=== PATIENT | male | born 1950 | race Caucasian/White ===

== ENCOUNTER → 2016-11-14 | Outpatient (REF) | payer MEDICARE, MEDICAID ==
[~2016-11-14] MED LIST: AKWASOL OU; ALBU83IN INH; APAP325T4 PO; ASPI81TA24 PO; BISA10SU4 PR; CLAR10CA3 PO; CLON0.5T PO; COUM1TAB14 PO; CRES20TA PO; DALI1TAB2 PO; ENEMENE16 PR; FLOM5CAP PO; HUMA100I3 SC; INSULANT SC; IPRASOL4 INH; ISOS30TAB PO; KETO10TAB PO; NEPRLIQ3 PO; NEUR100C PO; NITR0.4S14 SL; PROT20TA11 PO; RENV2TAB PO; TOPR50TA PO; TRAZ25TA PO; TUMS500C PO; VITA200038 PO
[2016-11-14 08:50] LABS: MEAN CORPUSCULAR HEMOGLOBIN 26.4 pg (27.0-33.0); MEAN CORPUSCULAR HGB CONC 30.7 g/dl (32.0-36.5); MEAN CORPUSCULAR VOLUME 86.1 fl (80.0-96.0); RED CELL DISTRIBUTION WIDTH 15.5 % (11.5-14.5); WHITE BLOOD COUNT 5.7 K/mm3 (4.0-10.0)
[2016-11-14 08:58] LABS: INR 2.99
[2016-11-14 09:20] LABS: CALCIUM LEVEL 9.4 MG/DL (8.8-10.2); CREATININE FOR GFR 4.44 MG/DL (0.70-1.30); GLOMERULAR FILTRATION RATE 14.2 (>49); POTASSIUM SERUM 3.9 MEQ/L (3.5-5.1)
== END ==
LOC: SKLAB4 11:13
PROVIDERS: ATTEND Internal Medicine
DX: N18.9 Chronic kidney disease, unspecified (principal); E11.9 Type 2 diabetes mellitus without complications; D64.9 Anemia, unspecified; Z79.01 Long term (current) use of anticoagulants

== ENCOUNTER → 2016-11-21 | Outpatient (REF) | payer MEDICARE, MEDICAID ==
[2016-11-21 09:02] LABS: INR 2.94
== END ==
LOC: SKLAB4 09:37
PROVIDERS: ATTEND Internal Medicine
DX: Z51.81 Encounter for therapeutic drug level monitoring (principal); Z79.01 Long term (current) use of anticoagulants

== ENCOUNTER → 2016-11-28 | Outpatient (REF) | payer MEDICARE, MEDICAID ==
[2016-11-28 08:23] LABS: INR 2.38
== END ==
LOC: SKLAB4 09:53
PROVIDERS: ATTEND Internal Medicine
DX: Z51.81 Encounter for therapeutic drug level monitoring (principal); Z79.01 Long term (current) use of anticoagulants

== ENCOUNTER 2016-11-30 13:50 | Inpatient (IN) | payer MEDICARE, BC, MEDICAID ==
[~2016-11-30] VITALS: Ht 185.4 cm; Wt 82.1 kg
[2016-11-30] MEDS ORDERED: AKWASOL OU (14:11)
[2016-11-30] MEDS ORDERED: CLAR10CA3 PO (14:11)
[2016-11-30] MEDS ORDERED: VITA200038 PO (14:11)
[2016-11-30] MEDS ORDERED: TOPR50TA PO (14:11)
[2016-11-30] MEDS ORDERED: CLON0.5T PO (14:11)
[2016-11-30] MEDS ORDERED: BISA10SU4 PR (14:11)
[2016-11-30] MEDS ORDERED: CRES20TA PO (14:11)
[2016-11-30] MEDS ORDERED: DALI1TAB2 PO (14:11)
[2016-11-30] MEDS ORDERED: FLOM5CAP PO (14:11)
[2016-11-30] MEDS ORDERED: COUM1TAB14 PO (14:11)
[2016-11-30] MEDS ORDERED: TRAZ25TA PO (14:11)
[2016-11-30] MEDS ORDERED: ASPI81TA24 PO (14:11)
[2016-11-30] MEDS ORDERED: NITR0.4S14 SL (14:11)
[2016-11-30] MEDS ORDERED: IPRASOL4 INH (14:11)
[2016-11-30] MEDS ORDERED: NEUR100C PO (14:11)
[2016-11-30] MEDS ORDERED: APAP325T4 PO (14:11)
[2016-11-30] MEDS ORDERED: RENV2TAB PO (14:11)
[2016-11-30] MEDS ORDERED: PROT20TA11 PO (14:11)
[2016-11-30] MEDS ORDERED: HUMA100I3 SC (14:11)
[2016-11-30] MEDS ORDERED: ISOS30TAB PO (14:11)
[2016-11-30] MEDS ORDERED: INSULANT SC (14:11)
[2016-11-30] MEDS ORDERED: TUMS500C PO (14:11)
[2016-11-30] MEDS ORDERED: ALBU83IN INH (14:11)
[2016-11-30] MEDS ORDERED: ASPIRIN 81 MG CHEW TABLET PO ONE (15:00)
[2016-11-30] MEDS ORDERED: MORPHINE 4 MG/ML 1ML SYRINGE IV ONE (15:00)
[2016-11-30 15:14] LABS: BASO % 0.4 % (0.0-1.0); EOS # 0.1 K/mm3 (0.0-0.50); EOS % 1.5 % (0.0-3.0); LARGE UNSTAINED CELL # 0.5 K/mm3 (0.0-0.4); LARGE UNSTAINED CELL % 6.9 % (0.0-4.0); LYMPH # 0.9 K/mm3 (1.5-4.5); LYMPH % 5.8 % (24.0-44.0); MEAN CORPUSCULAR HEMOGLOBIN 26.5 pg (27.0-33.0); MEAN CORPUSCULAR HGB CONC 31.3 g/dl (32.0-36.5); MEAN CORPUSCULAR VOLUME 84.9 fl (80.0-96.0); MONO # 0.6 K/mm3 (0.0-0.8); MONO % 8.3 % (0.0-5.0); NEUTROPHILS # 5.4 K/mm3 (1.8-7.7); NEUTROPHILS % 77.1 % (36.0-66.0); PLATELET COUNT, AUTOMATED 112 k/mm3 (150-450); RED CELL DISTRIBUTION WIDTH 16.9 % (11.5-14.5)
[2016-11-30 15:20] LABS: INR 2.14
--- NOTE | 2016-11-30 15:33 | REP ---
Chest the patient sitting AP and lateral views: There are no comparisons. There is interstitial coarsening compatible with interstitial infiltrates. There are small bilateral pleural effusions. Cardiac size is enlarged. There are sternotomy wires. The young, mediastinum, bony thorax are unremarkable. Impression: The absence of comparison studies, the findings on the current examination are compatible with interstitial infiltrates and bilateral pleural effusions. There are sternotomy wires and cardiomegaly. Signed by Eleazar Mckeon MD 11/30/2016 03:25 P
[2016-11-30 15:56] LABS: ALBUMIN 3.2 GM/DL (3.2-5.2); ALBUMIN/GLOBULIN RATIO 1.03 (1.00-1.93); BILIRUBIN,DIRECT 0.2 MG/DL (0.0-0.2); BILIRUBIN,TOTAL 0.5 MG/DL (0.2-1.0); CALCIUM LEVEL 9.2 MG/DL (8.8-10.2); CREATININE FOR GFR 3.81 MG/DL (0.70-1.30); GLOMERULAR FILTRATION RATE 16.9 (>49); POTASSIUM SERUM 4.3 MEQ/L (3.5-5.1); TOTAL PROTEIN 6.3 GM/DL (6.4-8.2)
[2016-11-30 16:49] VITALS: PULSE 58
[2016-11-30] MEDS ORDERED: NEPRLIQ3 PO (17:21)
[2016-11-30] MEDS ORDERED: ENEMENE16 PR (17:21)
[2016-11-30] MEDS ORDERED: ALBUTEROL SULFATE 2.5 MG/0.5 ML INH NEB SOLN INH PRN (18:00)
[2016-11-30] MEDS ORDERED: BISACODYL 5 MG TAB PO PRN (18:00)
[2016-11-30] MEDS ORDERED: ONDANSETRON 4MG/2ML VIAL (J2405) IV PRN (18:00)
[2016-11-30] MEDS ORDERED: CALCIUM CARBONATE 500 MG CHEW U/D PO PRN (18:00)
[2016-11-30] MEDS ORDERED: FLEET ENEMA PR PRN (18:00)
[2016-11-30] MEDS ORDERED: clonazePAM 0.5 MG TAB PO PRN (18:00)
[2016-11-30] MEDS ORDERED: DEXTROSE 50% 50 ML SYRINGE IV PRN (18:15)
[2016-11-30] MEDS ORDERED: GLUCOSE 4 GM CHEW TABLET PO PRN (18:15)
[2016-11-30] MEDS ORDERED: GLUCAGON FOR INJ 1 MG VIAL (J1610) SC PRN (18:15)
--- NOTE | 2016-11-30 18:30 | REPUSA ---
CLINICAL HISTORY: Increased d-dimers. COMMENTS: Real time sonography with duplex doppler of the extremities bilaterally was performed with attention to the major deep venous structures. Evaluation reveals the common femoral, superficial femoral and popliteal veins bilaterally to be comp letely compressible without intraluminal thrombus. There is normal spontaneous phasic flow and augmen tation in all deep veins. The greater saphenous/common femoral vein junctions are patent bilaterally. IMPRESSION: No evidence of DVT in the lower extremities bilaterally. Thank you for your kind referral of this patient.
--- NOTE | 2016-11-30 19:44 | ECGEPIP ---
Stationary ECG Study [facility] - ED Test Date: 2016-11-30 Pat Name: NURY CARABALLO Department: Room: - Gender: M Bell Tier: anna : [id number] Requested By: STUART Cai Order Number: [id number] Reading MD: Marty Watts Measurements Intervals [place] Rate: 66 P: CT: 0 QRS: 95 QRSD: 119 T: 90 QT: 423 QTc: 446 Interpretive Statements ATRIAL FIBRILLATION BORDERLINE RIGHT AXIS DEVIATION LOW QRS VOLTAGE IN EXTREMITY LEADS POSSIBLE INC. RBBB MODERATE ST DEPRESSION NO PRIORS Electronically Signed On 11-30-2016 19:44:08 EDT by Marty Watts
[2016-11-30] MEDS: IPRATROPIUM 0.5MG/ALBUTEROL 2.5MG INH SOL UD 3ML (DUONEB)(J7620) INH SCH (20:00)
[2016-11-30 20:19] VITALS: BP 121/61
[2016-11-30] MEDS: GABAPENTIN 100 MG CAP PO SCH (20:34)
[2016-11-30] MEDS: VITAMIN D 1,000 INTERNATIONAL UNITS TABLET PO SCH (20:34)
[2016-11-30] MEDS: ACETAMINOPHEN TAB 650MG DOSE (2X325MG) PO PRN (20:34)
[2016-11-30] MEDS: ROSUVASTATIN 10 MG TAB (CRESTOR) PO SCH (20:35)
[2016-11-30] MEDS: LORATADINE 10 MG TAB PO SCH (20:35)
[2016-11-30] MEDS: TAMSULOSIN 0.4 MG CAP PO SCH (20:35)
[2016-11-30] MEDS: WARFARIN SOD 4 MG TAB PO SCH (20:35)
[2016-11-30] MEDS: (RENVELA) SEVELAMER **CARBONate** 800 MG TAB PO SCH (20:38)
[2016-11-30] MEDS: HumaLOG INSULIN (NovoLOG) PER UNIT SC SCH (20:38)
[2016-11-30] MEDS: POLYVINYL ALCOHOL OPHTH SOLN 15 ML(LIQUITEARS) OU SCH (20:38)
[2016-11-30] MEDS: METOPROLOL SUCC (TopROL XL) 50MG **XL** TAB PO SCH (20:40)
[2016-11-30] MEDS ORDERED: HEPARIN SOD (PORCINE) 5000 UNITS/ML VIAL SC SCH (21:00)
--- NOTE | 2016-11-30 22:28 | HPE ---
DATE OF ADMISSION: 11/30/2016 PRIMARY CARE PHYSICIAN: Edmond Gan Jr., MD LITHOGRAPH DESIGNER: Ricky Valentino MD CHIEF COMPLAINT: Right chest pain. HISTORY OF PRESENT ILLNESS: Mr. Cardona is a 66-year-old male with multiple past medical history who presented to the emergency room (ER) due to experiencing right chest pain. Patient expressed that the pain started 2 days ago. When he woke up in the morning he felt pain and it was 4/10, however, it gradually increased to 6-7. Patient is from [facility] where he has lived for a month and before that he was transferred from [facility]. Patient expressed that the pain was constant and increased with moving around and raising his right arm. Patient, however, denies palpitations, racing or skipping heart beat, left chest pain with radiation to the jaw or left shoulder. Patient also expressed that he recently noticed being more out of breath with activities. However, patient denied any history of orthopnea or paroxysmal nocturnal dyspnea (PND). Patient also denies sick contact, fever, chills, or night sweats. Patient also denies loss of appetite. Patient is receiving dialysis on Tuesdays , , and Saturdays, following with Dr. Valentino. However, patient also has a early childhood education coordinator from [place] who has been sending the medical file to Dr. Valentino for continuation of care. At night, patient is on 2 liters of oxygen. Patient has been diagnosed with sleep apnea, however, patient is not on continuous positive airway pressure (CPAP) or bilevel positive airway pressure (BiPAP) due to not being able to tolerate. At the ER, patient was found to have elevated brain natriuretic peptide (BNP). ALLERGIES: ATORVASTATIN, IODINE. PAST MEDICAL HISTORY: 1. End-stage renal disease, dialysis dependent. 2. Paroxysmal atrial fibrillation. 3. Congestive heart failure, possibly combined systolic and diastolic. 4. Chronic obstructive pulmonary disease. 5. Chronic hypoxic respiratory failure. 6. Obstructive sleep apnea. 7. History of coronary artery disease. 8. Diabetes mellitus. 9. Peripheral vascular disease. 10. Wound in the right above the knee amputation. 11. Peripheral neuropathy. PAST SURGICAL HISTORY: 1. Right above knee amputation (AKA) with ischemic postoperative changes February 2016. 2. Revision right AKA 08/05/2016. 3. Carpal tunnel surgery. 4. Left below knee amputation. 5. Coronary artery bypass graft (CABG) four times in 2007. 6. Arteriovenous (AV) fistula in the left upper extremity in 2015. 7. Dialysis graft to right arm in 2011. 8. Cholecystectomy in 2014. 9. Right anterior tibial and peroneal angioplasty. 10 Right 3rd toe amputation. FAMILY HISTORY: Mother at age 57 due to heart failure. Patient's father at age 74 due to diabetes and heart failure. Patient has no brothers or sisters. Patient has three sons who are healthy for their age. SOCIAL HISTORY: Patient lives at [facility]. Patient stopped smoking in 1991, however, patient started smoking at age 12. Patient expressed on average it was a pack or half a pack a day. Patient also stopped drinking alcoholic beverages in 1991, however, before that patient was drinking occasionally and started drinking when he was a teenager. Patient denies illicit drug use. Patient has traveled to [place] and [place]. Patient has no pets. REVIEW OF SYSTEMS: GENERAL: Patient denies fever, chills, night sweats, weight loss, weight gain. HEENT: Patient denies lightheadedness or dizziness, problem with chewing food or sinusitis. NECK: Patient denies lumps, bumps, or decreased range of motion of his neck. HEART: Patient denies chest pain, racing or skipping heart beat, palpitations. LUNGS: At this time patient denies shortness of breath, however, patient expressed that he becomes out of breath with activities. Also, he feels that if he lays down flat for a long time he becomes out of breath for the past several months. ABDOMEN: Patient denies abdominal pain, nausea, vomiting, diarrhea, constipation, melena, hematochezia, or hemoptysis. NEUROLOGIC: Patient denies history of transient ischemic attack (TIA), seizure or seizure-type activities. HOME MEDICATIONS: - acetaminophen 650 mg by mouth every 4 hours as needed for pain - albuterol sulfate 2.5 mg inhaled every 2 hours as needed for shortness of breath - ipratropium bromide/albuterol one solution inhaled three times a day - artificial tears two drops both eyes twice a day - aspirin 81 mg by mouth twice a day - bisacodyl 10 mg as needed for constipation - Tums 1000 mg by mouth four times a day as needed for heartburn - vitamin D3 2000 units by mouth nightly - clonazepam 0.5 mg by mouth daily as needed for anxiety - Neurontin 2000 mg by mouth nightly - Lantus 24 units subcutaneous every morning - Humalog - isosorbide dinitrate 30 mg by mouth daily - Claritin 10 mg by mouth nightly - Toprol XL 50 mg by mouth nightly - Nepro with Carb Steady one liquid by mouth twice a day - nitroglycerin 0.4 mg sublingual (SL) every 5 minutes as needed for angina - Protonix 20 mg by mouth daily - roflumilast 500 mcg by mouth daily - Crestor 20 mg by mouth nightly - Renvela 800 mg by mouth Wednesdays and Mondays - enema as needed for constipation - Flomax 0.4 mg by mouth nightly - trazodone 25 mg by mouth nightly - warfarin 4 mg by mouth nightly OBJECTIVE: VITAL SIGNS: Temperature 97.7, pulse 65, respiratory rate 19, blood pressure 125/59, pulse oximetry 95% on room air. GENERAL APPEARANCE: Patient was lying in bed, in no acute distress. Patient was awake, alert, and oriented to time, place, and person. HEENT: Normocephalic, atraumatic. Pupils are equal and reactive to light. Oral mucosa is moist. NECK: Soft, supple. No lymphadenopathy. No thyromegaly. No jugular venous distention (JVD). HEART: Irregularly irregular. ABDOMEN: Soft, nontender. Positive bowel sounds in all quadrants. LUNGS: Patient has decreased breath sounds at the base of the lung. Patient has mild crackles at the base of the lung, however good air movement. EXTREMITIES: Patient has below the knee amputation on the left and right above the knee amputation. However, patient on the right side has a mild wound that is healing, however no bleeding or drainage was noticed. Patient has normal range of motion in both upper and lower extremities. NEUROLOGIC: Cranial nerves II-XII were intact. LABORATORY DATA: White blood cells 7, red blood cells 4.47, hemoglobin 11.9, hematocrit 38, MCV 84.9, MCH 26.5, MCHC 31.3, RDW 16.9, platelet count 112, neutrophil percentage 77.1, lymphocyte percentage 5.8, monocyte percentage 8.3, eosinophil percentage 1.5, basophil percentage 0.4, leukocyte percentage 6.9. PT 24.7, INR 2.14, aPTT 35.3, Sodium 135, potassium 4.3, chloride 98, carbon dioxide 28, anion gap 9, BUN 37, creatinine 3.81, glomerular filtration rate 16.9, fasting glucose 236, calcium 9.2, total bilirubin 0.5, direct bilirubin 0.2, AST 11, ALT 19, alkaline phosphatase 232, total creatine kinase 80, CK-MB 5.4, CK-MB relative index 6.75, troponin I 0.06, BNP 2870, total protein 6.3, albumin 3.2, lipase 186. IMAGING STUDIES: Chest x-ray shows the absence of comparison studies. The indications of the current examination are compatible with interstitial infiltrates and bilateral pleural effusions. There are sternotomy wires and cardiomegaly. Duplex ultrasound of the lower extremities bilaterally shows no evidence of a deep venous thrombosis (DVT) in the lower extremities. ASSESSMENT AND PLAN: 1. Right chest pain. This is possibly secondary to costochondritis. At this time, patient is receiving acetaminophen. At this time, we will continue patient on acetaminophen. Patient received one dose of morphine 4 mg IV in the emergency room (ER), which he believes that his pain has decreased tremendously. At this time, patient is asymptomatic. 2. Abnormal chest x-ray. Chest x-ray indicated bilateral pleural effusion. Patient also has elevated brain natriuretic peptide (BNP). Emergency room (ER) has spoken with Dr. Ruff and Dr. Ruff will see the patient tomorrow. At this time, we will continue patient's oxygenation at 88-92% due to history of chronic obstructive pulmonary disease (COPD) and chronic hypoxic respiratory failure. We will continue monitoring patient for any abnormal symptoms. 3. End-stage renal disease. Patient is following with Dr. Valentino. Patient is on dialysis on Tuesdays, , and Saturdays. 4. Paroxysmal atrial fibrillation. Based on the CHADS2-VaSc score, patient is required to be on anticoagulation. At this time, patient is on warfarin. Also, patient is on Toprol XL as well as aspirin. Patient's rate is controlled. We will continue to monitor patient for any abnormal symptoms. 5. Chronic obstructive pulmonary disease (COPD) exacerbation. At this time, patient is stable. We will continue patient on oxygen and home breathing treatment. 6. Chronic hypoxic respiratory failure. Patient is stable at this time. Patient is on breathing treatment as well as oxygen. 7. Obstructive sleep apnea. Patient has been diagnosed with sleep apnea and was offered bilevel positive airway pressure (BiPAP)/continuous positive airway pressure (CPAP), however, patient refused using them. However, at this time patient is on 2 liters of oxygen at night when he sleeps via nasal cannula. 8. History of coronary artery disease. Patient is on statin as well as aspirin and warfarin. Patient also has a beta victor hugo. Also, we ordered an EKG which indicated atrial fibrillation, however it did not show any new pathology. The first cardiac marker was negative. We will continue cardiac markers every 6 hours, two more. 9. Diabetes mellitus. We will continue patient on Lantus, however we have started patient on sliding scale. Patient is also on consistent carbohydrate diet. 10. Wound in the stump of the right above knee amputation. At this time, wound is healing. No bleeding or discharge was noticed. 11. Peripheral vascular disease. This is a chronic issue. 12. Deep venous thrombosis (DVT) prophylaxis. Patient is on warfarin. 13. Allergies. Patient is on Claritin 10 mg by mouth nightly. 14. Diabetic neuropathy. Will continue patient on gabapentin 200 mg by mouth nightly. 15. Gastroesophageal reflux disease (GERD). Patient is on Protonix 20 mg daily. My preceptor for this patient encounter was Dr. Alfonso. The preceptor was physically present in the building during the encounter and was fully available. As needed, all aspects of the patient interview, examination, medical decision making process, and medical care plan development were reviewed and approved by the preceptor. The preceptor is aware and concurs with the plan as stated in the body of this note and will attest to such by his/her cosignature. I, Emerald Alfonso, have both independently examined this patient as well as reviewed the documentation. I have discussed in detail with the resident the findings and plan of treatment as documented in the residents documentation. I will continue to follow the patient and offer further guidance to the patients care as necessary during this hospital stay. NAT
[2016-11-30] MEDS ORDERED: NYSTATIN CREAM 15 GM TOP PRN (22:30)
[2016-11-30] MEDS ORDERED: ACETAMINOPHEN TAB 650MG DOSE (2X325MG) PO ONE (22:30)
[2016-11-30] MEDS: traZODone 25MG PER 1/2 TABLET PO SCH (22:45)
[2016-12-01] MEDS: ACETAMINOPHEN TAB 650MG DOSE (2X325MG) PO PRN ×2 (03:09→19:48)
[2016-12-01 03:21] LABS: INR 2.38
[2016-12-01 03:36] LABS: CALCIUM LEVEL 9.4 MG/DL (8.8-10.2); CREATININE FOR GFR 4.54 MG/DL (0.70-1.30); GLOMERULAR FILTRATION RATE 13.8 (>49); MAGNESIUM LEVEL 2.7 MG/DL (1.8-2.4); PHOSPHORUS LEVEL 4.8 MG/DL (2.5-4.9); POTASSIUM SERUM 4.4 MEQ/L (3.5-5.1)
[2016-12-01] MEDS: NITROGLYCERIN 0.4 MG SUBL TABLET SL PRN ×6 (03:48→20:01)
[2016-12-01 04:45] LABS: ADD MANUAL DIFFER YES; MEAN CORPUSCULAR HEMOGLOBIN 26.6 pg (27.0-33.0); MEAN CORPUSCULAR HGB CONC 30.8 g/dl (32.0-36.5); MEAN CORPUSCULAR VOLUME 86.3 fl (80.0-96.0); PLATELET COUNT, AUTOMATED 112 k/mm3 (150-450); RED CELL DISTRIBUTION WIDTH 16.7 % (11.5-14.5); WHITE BLOOD COUNT 6.2 K/mm3 (4.0-10.0)
[2016-12-01 05:26] LABS: ANISOCYTOSIS 1+; BASOPHILS 1 % (0-4); EOSINOPHILS 2 % (0-5); HYPOCHROMASIA 1+
[2016-12-01 06:00] VITALS: BP 109/58
[2016-12-01] MEDS: IPRATROPIUM 0.5MG/ALBUTEROL 2.5MG INH SOL UD 3ML (DUONEB)(J7620) INH SCH ×3 (07:16→19:34)
[2016-12-01] MEDS: POLYVINYL ALCOHOL OPHTH SOLN 15 ML(LIQUITEARS) OU SCH ×2 (08:26→20:03)
[2016-12-01] MEDS: HumaLOG INSULIN (NovoLOG) PER UNIT SC SCH ×4 (08:27→21:00)
[2016-12-01] MEDS: LEVEMIR (INSULIN DETEMIR) 1 UNITS/0.01ML SC SCH (08:28)
[2016-12-01] MEDS: PANTOPRAZOLE 20 MG TAB PO SCH (08:32)
[2016-12-01] MEDS: ISOSORBIDE DIN. (ISORDIL) 30 MG TAB PO SCH (08:32)
[2016-12-01] MEDS: ASPIRIN 81 MG ENTERIC TAB PO SCH (08:32)
[2016-12-01] MEDS: (RENVELA) SEVELAMER **CARBONate** 800 MG TAB PO SCH ×3 (08:32→18:38)
[2016-12-01] MEDS: ROFLUMILAST 500 MCG TAB (DALIRESP) PO SCH (08:33)
--- NOTE | 2016-12-01 11:10 | IPNPDOC ---
Subjective Date Seen The patient was seen on 12/01/16. Subjective Chief Complaint/HPI Patient seen and examined at the bedside this morning. States that he is feeling better and that his chest pain on the right side is resolving. Denies any acute complaints at this time. Objective Physical Examination General Exam: Positive: Alert, Cooperative, No Acute Distress ENT Exam: Positive: Atraumatic, Mucous membr. moist/pink Neck Exam: Negative: JVD Chest Exam: Positive: Diminished Heart Exam: Positive: Rate Normal, Irregular Rhythm, Normal S1, Normal S2 Abdomen Exam: Positive: Soft, Negative: Tenderness Extremity Exam: Positive: Other (right [id number] amputation noted with dressing overlying the stump. Left below the knee amputation noted) Assessment /Plan Plan/VTE VTE Prophylaxis Ordered?: Yes Plan Right sided chest pain likely 2/2 Costochondritis EKG with no acute ST changes Troponin negative 3 Patient's right-sided chest pain reproducible on palpation of the chest wall The patient states this morning that the chest pain has significantly improved Denies any complaints of shortness of breath, palpitations, or any diaphoresis We will continue to monitor Bilateral pleural effusions noted on CXR Patient does have end-stage renal disease requiring hemodialysis Patient is scheduled for dialysis today Nephrology on board for volume optimization End-stage renal disease on HD Nephrology on board as noted above Paroxysmal atrial fibrillation, rate controlled EKG from ER notable for atrial fibrillation Continue metoprolol On Coumadin with therapeutic INR this morning Chronic obstructive pulmonary disease (COPD), stable Continue albuterol, DuoNeb's when necessary Chronic hypoxic respiratory failure Patient on baseline 2 L of oxygen Obstructive sleep apnea Does not take any CPAP/BiPAP therapy at night Continue 2 L of oxygen via nasal cannula at night History of coronary artery disease No evidence of acute coronary syndrome here given EKG and troponin findings Continue aspirin, statin, beta victor hugo Diabetes mellitus. Continue current regimen Peripheral vascular disease Status post left [id number] amputation Status post right [id number]-[id number] amputation Continue aspirin, statin GERD Continue Protonix Diabetic neuropathy Continue gabapentin Deep venous thrombosis (DVT) prophylaxis Patient on Coumadin VS, I&O, 24H, Fishbone Vital Signs/I&O Vital Signs Date Time Temp Pulse Resp B/P (MAP) Pulse Ox O2 Delivery O2 Flow Rate FiO2 12/01/16 08:40 144/66 12/01/16 06:00 97.3 64 18 97 11/30/16 20:47 Nasal Cannula 2.0 I&O- Last 24 Hours up to 6 AM 12/01/16 06:00 Intake Total 540 ml Output Total 0 ml Balance 540 ml Laboratory Data 24H LABS Laboratory Tests 2 11/30/16 15:00: White Blood Count 7.0, Red Blood Count 4.47, Hemoglobin 11.9L, Hematocrit 38.0L , Mean Corpuscular Volume 84.9, Mean Corpuscular Hemoglobin 26.5L, Mean Corpuscular Hemoglobin Concent 31.3L, Red Cell Distribution Width 16.9H, Platelet Count 112L, Neutrophils (%) (Auto) 77.1H, Lymphocytes (%) (Auto) 5.8L, Monocytes (%) (Auto) 8.3H, Eosinophils (%) (Auto) 1.5, Basophils (%) (Auto) 0.4 , Neutrophils # (Auto) 5.4, Lymphocytes # (Auto) 0.9L, Monocytes # (Auto) 0.6, Eosinophils # (Auto) 0.1, Basophils # (Auto) 0.0, Large Unclassified Cells % 6.9H, Large Unclassified Cells # 0.5H, Prothrombin Time 24.7H, Prothromb Time International Ratio 2.14, Activated Partial Thromboplast Time 35.3, D-Dimer, Quantitative 970.5H, Anion Gap 9, Glomerular Filtration Rate 16.9L, Calcium Level 9.2, Aspartate Amino Transf (AST/SGOT) 11L, Alanine Aminotransferase (ALT/ SGPT) 19, Alkaline Phosphatase 232H, Total Bilirubin 0.5, Direct Bilirubin 0.2, Total Creatine Kinase 80, Creatine Kinase MB 5.4H, Creatine Kinase MB Relative Index 6.75H, Troponin I 0.06, B-Type Natriuretic Peptide 2870H, Total Protein 6.3L, Albumin 3.2, Albumin/Globulin Ratio 1.03, Lipase 186 11/30/16 20:37: Bedside Glucose (Misc Panel) 214H 11/30/16 20:58: Total Creatine Kinase 69, Creatine Kinase MB 3.9H, Creatine Kinase MB Relative Index 5.65H, Troponin I 0.07 12/01/16 03:00: Prothrombin Time 26.9H, Prothromb Time International Ratio 2.38, Anion Gap 7L, Glomerular Filtration Rate 13.8L, Calcium Level 9.4, Total Creatine Kinase 51, Creatine Kinase MB 3.3, Creatine Kinase MB Relative Index 6.47H, Troponin I 0.07 , Albumin 3.0L, Neutrophils 75, Lymphocytes (Manual) 14L, Monocytes (Manual) 8, Eosinophils (Manual) 2, Basophils (Manual) 1, Platelet Estimate NORMAL, Hypochromasia 1+, Anisocytosis 1+, Blood Urea Nitrogen 44H, Creatinine 4.54H, Sodium Level 135L, Potassium Level 4.4, Chloride Level 99, Carbon Dioxide Level 29, Phosphorus Level 4.8, Magnesium Level 2.7H 12/01/16 05:55: Bedside Glucose (Misc Panel) 116H CBC/BMP Laboratory Tests 11/30/16 15:00 Red Blood Count 4.47, Mean Corpuscular Volume 84.9, Mean Corpuscular Hemoglobin 26.5 L, Mean Corpuscular Hemoglobin Concent 31.3 L, Red Cell Distribution Width 16.9 H, Neutrophils (%) (Auto) 77.1 H, Lymphocytes (%) (Auto) 5.8 L, Monocytes ( %) (Auto) 8.3 H, Eosinophils (%) (Auto) 1.5, Basophils (%) (Auto) 0.4, Neutrophils # (Auto) 5.4, Lymphocytes # (Auto) 0.9 L, Monocytes # (Auto) 0.6, Eosinophils # (Auto) 0.1, Basophils # (Auto) 0.0 12/01/16 03:00 Red Blood Count 4.23 L, Mean Corpuscular Volume 86.3, Mean Corpuscular Hemoglobin 26.6 L, Mean Corpuscular Hemoglobin Concent 30.8 L, Red Cell Distribution Width 16.7 H, Anion Gap 7 L FRANCO FONSECA MD Dec 01, 2016 11:10
[2016-12-01 19:50] VITALS: BP 137/71
[2016-12-01] MEDS: traZODone 25MG PER 1/2 TABLET PO SCH (20:02)
[2016-12-01] MEDS: LORATADINE 10 MG TAB PO SCH (20:03)
[2016-12-01] MEDS: TAMSULOSIN 0.4 MG CAP PO SCH (20:03)
[2016-12-01] MEDS: GABAPENTIN 100 MG CAP PO SCH (20:03)
[2016-12-01] MEDS: ROSUVASTATIN 10 MG TAB (CRESTOR) PO SCH (20:03)
[2016-12-01] MEDS: VITAMIN D 1,000 INTERNATIONAL UNITS TABLET PO SCH (20:03)
[2016-12-01] MEDS: WARFARIN SOD 4 MG TAB PO SCH (20:03)
[2016-12-01 20:07] VITALS: BP 146/65
[2016-12-01] MEDS: METOPROLOL SUCC (TopROL XL) 50MG **XL** TAB PO SCH (20:08)
[2016-12-01 22:00] VITALS: BP 131/60
[2016-12-02] MEDS: ACETAMINOPHEN TAB 650MG DOSE (2X325MG) PO PRN ×2 (04:21→11:21)
[2016-12-02 06:00] VITALS: BP 112/59
[2016-12-02 06:05] LABS: ADD MANUAL DIFFER YES; MEAN CORPUSCULAR HEMOGLOBIN 26.4 pg (27.0-33.0); MEAN CORPUSCULAR HGB CONC 30.8 g/dl (32.0-36.5); MEAN CORPUSCULAR VOLUME 85.6 fl (80.0-96.0); PLATELET COUNT, AUTOMATED 112 k/mm3 (150-450); RED CELL DISTRIBUTION WIDTH 16.6 % (11.5-14.5); WHITE BLOOD COUNT 5.4 K/mm3 (4.0-10.0)
[2016-12-02 06:11] LABS: INR 2.59
[2016-12-02 06:27] LABS: ALBUMIN 2.9 GM/DL (3.2-5.2); CALCIUM LEVEL 9.6 MG/DL (8.8-10.2); CREATININE FOR GFR 3.44 MG/DL (0.70-1.30); MAGNESIUM LEVEL 2.6 MG/DL (1.8-2.4); PHOSPHORUS LEVEL 4.5 MG/DL (2.5-4.9); POTASSIUM SERUM 4.1 MEQ/L (3.5-5.1)
[2016-12-02 06:46] LABS: ANISOCYTOSIS 1+; BASOPHILS 3 % (0-4); OVALOCYTES 1+
[2016-12-02 06:48] LABS: POIKILOCYTOSIS 1+
[2016-12-02] MEDS: IPRATROPIUM 0.5MG/ALBUTEROL 2.5MG INH SOL UD 3ML (DUONEB)(J7620) INH SCH (07:17)
[2016-12-02] MEDS: HumaLOG INSULIN (NovoLOG) PER UNIT SC SCH (07:30)
[2016-12-02] MEDS: POLYVINYL ALCOHOL OPHTH SOLN 15 ML(LIQUITEARS) OU SCH (08:16)
[2016-12-02 08:17] VITALS: BP 112/59
[2016-12-02] MEDS: ROFLUMILAST 500 MCG TAB (DALIRESP) PO SCH (08:17)
[2016-12-02] MEDS: ASPIRIN 81 MG ENTERIC TAB PO SCH (08:17)
[2016-12-02] MEDS: ISOSORBIDE DIN. (ISORDIL) 30 MG TAB PO SCH (08:17)
[2016-12-02] MEDS: PANTOPRAZOLE 20 MG TAB PO SCH (08:17)
[2016-12-02] MEDS: (RENVELA) SEVELAMER **CARBONate** 800 MG TAB PO SCH (08:18)
[2016-12-02] MEDS: LEVEMIR (INSULIN DETEMIR) 1 UNITS/0.01ML SC SCH (08:26)
[2016-12-02] MEDS ORDERED: PREVNAR 13 VACCINE SYRINGE (CPT CODE:90670) IM ONE (09:00)
[2016-12-02] MEDS ORDERED: KETO10TAB PO (09:49)
--- NOTE | 2016-12-02 19:11 | DSES ---
DATE OF ADMISSION: 12/01/2016 DATE OF DISCHARGE: 12/02/2016 PRIMARY CARE PHYSICIAN: Unknown. REFERRING PHYSICIAN: None. CONSULTING PHYSICIAN: Dr. Ruff. CONDITION ON DISCHARGE: Stable. FINAL DIAGNOSES: 1. Costochondritis. 2. Bilateral pleural effusions secondary to end-stage renal disease. PROCEDURES: None. HISTORY OF PRESENT ILLNESS: Patient is a 66-year-old male with a past medical history of end-stage renal disease, on hemodialysis, paroxysmal atrial fibrillation, congestive heart failure, combination of systolic and diastolic, chronic obstructive pulmonary disease (COPD), chronic hypoxic respiratory failure, obstructive sleep apnea, coronary artery disease, diabetes, peripheral vascular disease, peripheral neuropathy who presented to the emergency room (ER) with complaints of right-sided chest wall pain. Upon presentation to the ER, patient was felt to have some bilateral pleural effusions on chest x-ray and was admitted for possible fluid overload. HOSPITAL COURSE: 1. Right-sided chest pain, likely secondary to costochondritis. EKG without any ST-segment deviation. Troponins times three sets have been negative. Patient's right-sided chest pain was reproducible upon palpation. Patient's chest pain is improved with pain medications and has improved throughout the hospital course. 2. Pleural effusions noted to be on chest x-ray. Patient does have end-stage renal disease requiring hemodialysis. Patient was scheduled for hemodialysis on 12/01/2016 and received hemodialysis accordingly. 3. End-stage renal disease, on hemodialysis as above. 4. Paroxysmal atrial fibrillation. EKG in the ER was notable for atrial fibrillation, rate controlled with metoprolol. Has been on Coumadin for anticoagulation. INR is within therapeutic range. 5. COPD. Continue with albuterol and DuoNeb as needed. 6. Chronic hypoxic respiratory failure. Continue with baseline 2 liters of oxygen at night. 7. Obstructive sleep apnea. Does not use continuous positive airway pressure (CPAP) or bilevel positive airway pressure (BiPAP). 8. Coronary artery disease. No evidence of coronary syndrome on EKG. Continue with aspirin, statin, and beta victor hugo. 9. Diabetes mellitus. Continue with current regimen. 10. Peripheral vascular disease, status post right [id number]. Continue with aspiration, statin. 11. Gastroesophageal reflux disease (GERD). Continue with Protonix. 12. Diabetic neuropathy. Continue with gabapentin. 13. Deep vein thrombosis (DVT) prophylaxis. Continue with anticoagulation with Coumadin. DISCHARGE MEDICATIONS: Patient discharged home with following medication list: - acetaminophen 650 mg by mouth every 4 hours as needed pain - albuterol sulfate 2.5 mg inhaled every 2 hours as needed for shortness of breath - artificial tears two drops in each eye twice a day - aspirin 81 mg by mouth daily - bisacodyl 10 mg by mouth daily as needed for bowel care - calcium carbonate 1000 mg by mouth four times a day - colecalciferol 2000 units by mouth at bedtime - clonazepam 0.5 mg by mouth daily as needed for anxiety -gabapentin 200 mg by mouth at bedtime - insulin glargine 24 units subcutaneous every morning - insulin Lispro one dose to be taken with meals on sliding scale - isosorbide dinitrate 30 mg by mouth daily - loratadine 10 mg by mouth at bedtime - metoprolol succinate 50 mg at bedtime - Nepro with Carb Steady one liquid by mouth twice a day - nitroglycerine 0.4 mg sublingual every 5 minutes as needed for angina - Protonix 20 mg by mouth daily - roflumilast 500 mcg by mouth daily - rosuvastatin 20 mg by mouth at bedtime - sevelamer 800 mg by mouth every meal - sodium phosphate/bisphosphate enema per rectum daily as needed for constipation - tamsulosin 0.4 mg by mouth at bedtime - trazodone 25 mg by mouth at bedtime - warfarin 4 mg by mouth at bedtime New medications prescribed: - ketorolac 10 mg by mouth every 6 hours as needed for moderate pain for right shoulder DISCHARGE INSTRUCTIONS: Patient has been advised to followup with his primary care provider and nephrology within the next 7 days. He has been advised to remain compliant with treatment plan and medications and return to the emergency room if he experiences any problems. TIME SPENT ON DISCHARGE: Greater than 35 minutes.
--- NOTE | 2016-12-03 08:47 | IPN ---
DATE: 12/02/2016 SUBJECTIVE: The patient was seen and examined at the bedside today morning. Last 24 hour events were noted. The patient got hemodialysis done yesterday. He tolerated the hemodialysis procedure well. The patient reports that his right sided chest pain is getting better now. REVIEW OF SYSTEMS: The patient denies any fever, chills, rigors, headaches, nausea, vomiting or shortness of breath. He reports right sided chest pain improving. Right now he denies any pain in abdomen, constipation or diarrhea. The rest of the review of systems is negative. OBJECTIVE: VITAL SIGNS: Temperature 98 degrees Fahrenheit. Blood pressure 112/59. Pulse 99. Respiratory rate 18. Saturating 98% on nasal cannula on 2 liters. INTAKE AND OUTPUT: Ultra filtration with hemodialysis was 2 liters yesterday. Weight on the bed scale is 82.1 kg. PHYSICAL EXAMINATION: GENERAL: The patient is awake, alert and oriented times three laying in bed in no apparent distress. HEAD AND NECK EXAM: Pupils equally round and reactive to light. Mucous membranes are moist. Neck is supple. There is no jugular venous distention. CARDIOVASCULAR: S1, S2, regular rate. No murmur, rub or gallop. RESPIRATORY: Chest is clear to auscultation bilaterally. Bilateral equal air entry. No rales or rhonchi. ABDOMEN: Soft. Positive bowel sounds. Nontender. No ascites. No organomegaly. EXTREMITIES: The patient has bilateral lower extremity amputations. CENTRAL NERVOUS SYSTEM: No focal neurological deficit. Power is 5/5 in bilateral upper extremities. PSYCHIATRIC: Normal mood and affect. LAB REVIEW: CBC showed a WBC of 5.4, hemoglobin 11.4 and platelets of 112. BMP showed sodium 133, potassium 4.1, chloride 97, bicarbonate 29, BUN 30, creatinine 3.4, magnesium 2.6, albumin 2.9. CURRENT INPATIENT MEDICATIONS: The patient's medications were all reviewed by me and there is no change in the medications today as compared with yesterday. ASSESSMENT: 66-year-old male with past medical history of end stage renal disease on hemodialysis admitted at this time because of right sided chest pain. PLAN: 1. End stage renal disease with hemodialysis. The patient's regular days of dialysis are Monday, , Monday. He was dialyzed according to his regular schedule yesterday. No urgent need of hemodialysis today. 2. Right sided chest pain. The patient's pain is improving. He was also dialyzed yesterday and got ultra filtration. His shortness of breath is improved at this time. 3. Hypertension. Blood pressure is improved at this time. Continue current dose of isosorbide 30 mg by mouth daily, metoprolol 50 mg by mouth at bedtime. 4. Discharge planning. It is okay to discharge the patient from nephrology standpoint back to the [facility]. Next hemodialysis will be done as outpatient tomorrow morning.
== END 2016-12-02 11:41 | DRG 205 ==
LOC: M ED 13:50 → M ED INP 18:20 → M MSPAV 20:25 → OBSVTOIN 12-01 08:07
PROVIDERS: ADMIT Internal Medicine; ATTEND Internal Medicine
PROC: 5A1D60Z (ICD-10-PCS; principal; 2016-12-01)
DX: M94.0 Chondrocostal junction syndrome [Tietze] (principal); N18.6 End stage renal disease; I50.42 Chronic combined systolic (congestive) and diastolic (congestive) heart failure; J96.11 Chronic respiratory failure with hypoxia; J44.1 Chronic obstructive pulmonary disease with (acute) exacerbation; I13.2 Hypertensive heart and chronic kidney disease with heart failure and with stage 5 chronic kidney disease, or end stage renal disease; J90 Pleural effusion, not elsewhere classified; I48.0 Paroxysmal atrial fibrillation; G47.33 Obstructive sleep apnea (adult) (pediatric); Z66 Do not resuscitate; I25.10 Atherosclerotic heart disease of native coronary artery without angina pectoris; E11.51 Type 2 diabetes mellitus with diabetic peripheral angiopathy without gangrene; J30.9 Allergic rhinitis, unspecified; K21.9 Gastro-esophageal reflux disease without esophagitis; E11.42 Type 2 diabetes mellitus with diabetic polyneuropathy; Z89.611 Acquired absence of right leg above knee; Z89.512 Acquired absence of left leg below knee; Z95.0 Presence of cardiac pacemaker; Z99.2 Dependence on renal dialysis; Z98.62 Peripheral vascular angioplasty status; Z87.891 Personal history of nicotine dependence; Z79.82 Long term (current) use of aspirin; Z79.4 Long term (current) use of insulin; Z79.01 Long term (current) use of anticoagulants; Z79.899 Other long term (current) drug therapy

== ENCOUNTER 2016-12-04 07:53 | Emergency (ER) | payer MEDICARE, BC, MEDICAID ==
[~2016-12-04] VITALS: Ht 185.4 cm; Wt 85.9 kg
[2016-12-04] MEDS ORDERED: ONDANSETRON 4MG/2ML VIAL (J2405) IV ONE (08:15)
[2016-12-04] MEDS ORDERED: MORPHINE 4 MG/ML 1ML SYRINGE IV PRN (08:15)
[2016-12-04 08:38] LABS: ADD MANUAL DIFFER YES; MEAN CORPUSCULAR HEMOGLOBIN 26.5 pg (27.0-33.0); MEAN CORPUSCULAR HGB CONC 31.6 g/dl (32.0-36.5); PLATELET COUNT, AUTOMATED 115 k/mm3 (150-450); RED CELL DISTRIBUTION WIDTH 16.3 % (11.5-14.5); WHITE BLOOD COUNT 6.1 K/mm3 (4.0-10.0)
[2016-12-04 08:56] LABS: BASOPHILS 1 % (0-4); EOSINOPHILS 1 % (0-5)
[2016-12-04 08:57] LABS: HYPOCHROMASIA 1+
[2016-12-04 08:58] LABS: OVALOCYTES 1+
[2016-12-04 08:59] LABS: ANISOCYTOSIS 1+; POIKILOCYTOSIS 1+
[2016-12-04 09:02] LABS: ALBUMIN 3.1 GM/DL (3.2-5.2); BILIRUBIN,DIRECT 0.3 MG/DL (0.0-0.2); BILIRUBIN,TOTAL 0.7 MG/DL (0.2-1.0); CALCIUM LEVEL 9.8 MG/DL (8.8-10.2); CREATININE FOR GFR 3.15 MG/DL (0.70-1.30); TOTAL PROTEIN 6.2 GM/DL (6.4-8.2)
[2016-12-04 09:50] LABS: INR 2.54
[2016-12-04] MEDS ORDERED: diphenhydrAMINE INJ 50MG/ML VIAL (J1200) IV STA (10:05)
[2016-12-04] MEDS ORDERED: methylPREDNISolone INJ 125 MG/2 ML VIAL (J2930) IV ONE (10:15)
[2016-12-04] MEDS ORDERED: ISOVUE-370 76% 100ML VIAL (Q9967) As Ordered ONE (10:43)
--- NOTE | 2016-12-04 10:51 | REP ---
PORTABLE CHEST: AP portable view of the chest is performed and compared to prior study of 11/30/2016. There is again cardiomegaly with vascular congestion. There is bilateral interstitial edema and small effusions unchanged. There is a calcification and ectasia of the thoracic aorta. The mediastinal silhouette is unchanged. Multiple sternal wires are present. IMPRESSION: No change since prior study as discussed above. Signed by Eleazar Preciado MD 12/04/2016 07:25 P
--- NOTE | 2016-12-04 11:54 | REP ---
CT ANGIOGRAM OF THE CHEST: TECHNIQUE: Axial contrast enhanced images from the thoracic inlet to the upper abdomen using 100 mL Isovue 370 intravenous contrast material with multiplanar reformations. There is no CT evidence of a pulmonary embolism. Thoracic aorta demonstrates moderate atherosclerotic calcification. There is dilatation of the ascending aorta to a mild extent, 4.4 cm in AP dimension. There is no definite aortic dissection. There is mild cardiomegaly. No pericardial effusion is seen. Multiple subcentimeter lymph nodes are seen in the mediastinum. There is an enlarged right infrahilar lymph node measuring 2 cm in short axis dimension. There are small bilateral pleural effusions. Patchy bibasilar infiltrates are present. There are degenerative changes of the spine. IMPRESSION: No CT evidence of pulmonary embolism. Mild cardiomegaly. Small bilateral pleural effusions. Patchy bibasilar infiltrates. Mild dilatation of the ascending thoracic aorta. Mild right infrahilar adenopathy with an enlarged lymph node 2 cm in short axis dimension. Signed by Eleazar Preciado MD 12/04/2016 07:28 P
[2016-12-04 13:04] VITALS: BP 123/84
--- NOTE | 2016-12-05 08:04 | ECGEPIP ---
Stationary ECG Study [facility] - ED Test Date: 2016-12-04 Pat Name: NURY CARABALLO Department: Room: - Gender: M [employer]: anna : 1950 Requested By: Marie Saunders Order Number: [id number] Reading MD: Marty Watts Measurements Intervals Cade Rate: 68 P: IN: 0 QRS: 93 QRSD: 125 T: 96 QT: 435 QTc: 463 Interpretive Statements ATRIAL FIBRILLATION BORDERLINE RIGHT AXIS DEVIATION MODERATE INTRAVENTRICULAR CONDUCTION DELAY MODERATE ST DEPRESSION SIMILAR TO 11/30/16 Electronically Signed On 12-05-2016 8:03:58 EDT by Marty Watts
== END 2016-12-04 13:23 | disposition home or self-care (01) ==
LOC: EDBD 07:53 → M ED 09:41
DX: R07.81 Pleurodynia (principal); I48.91 Unspecified atrial fibrillation; I50.9 Heart failure, unspecified; I12.0 Hypertensive chronic kidney disease with stage 5 chronic kidney disease or end stage renal disease; E78.4 Other hyperlipidemia; N18.6 End stage renal disease; Z95.1 Presence of aortocoronary bypass graft; Z99.2 Dependence on renal dialysis
CPT/HCPCS: 71010; 71275; 80048; 80076; 82550; 82553; 83690; 83880; 84484; 85025; 85610; 93005; 93041; 94760; 96374; 96375; 99285; J1200; J2405; J2930; Q9967

== ENCOUNTER → 2016-12-05 | Outpatient (REF) | payer MEDICARE, MEDICAID ==
[2016-12-05 09:15] LABS: INR 3.95
== END ==
LOC: SKLAB4 09:44
PROVIDERS: ATTEND Internal Medicine
DX: Z51.81 Encounter for therapeutic drug level monitoring (principal); Z79.01 Long term (current) use of anticoagulants

== ENCOUNTER → 2016-12-07 | Outpatient (REF) | payer MEDICARE, MEDICAID | LOC: SKLAB4 04:07 | PROVIDERS: ATTEND Internal Medicine | DX: R19.7 Diarrhea, unspecified (principal) ==

== ENCOUNTER → 2016-12-08 | Outpatient (REF) | payer MEDICARE, MEDICAID ==
[2016-12-08 08:41] LABS: INR 2.54
== END ==
LOC: SKLAB4 12:54
PROVIDERS: ATTEND Internal Medicine
DX: Z51.81 Encounter for therapeutic drug level monitoring (principal); Z79.01 Long term (current) use of anticoagulants

== ENCOUNTER → 2016-12-12 | Outpatient (REF) | payer MEDICARE, MEDICAID ==
[2016-12-12 07:54] LABS: INR 1.6
== END ==
LOC: SKLAB4 12:00
PROVIDERS: ATTEND Internal Medicine
DX: Z51.81 Encounter for therapeutic drug level monitoring (principal); Z79.01 Long term (current) use of anticoagulants

== ENCOUNTER → 2016-12-19 | Outpatient (REF) | payer MEDICARE, MEDICAID ==
--- NOTE | 2016-12-01 19:03 | CR ---
DATE OF CONSULTATION: 12/01/2016 REQUESTING PHYSICIAN: Dr. Jet Rubio CONSULTING PHYSICIAN: Dr. Ruff REASON FOR CONSULTATION: Management of end-stage renal disease and hemodialysis. CHIEF COMPLAINT: Patient presented to the emergency room last night because of right sided chest pain. HISTORY OF PRESENT ILLNESS: Mr. Johnson is a 66-year-old male with a past medical history of end stage renal disease on hemodialysis. Patient is outpatient. He has multiple comorbidities which are mentioned below. Patient presented to the emergency room last night because of right sided chest pain which was almost 4/10 in intensity radiating down to his right arm. It was constant. It was getting worse with movement. Patient denies any nausea or vomiting, palpitations or sweating. He also complained of some shortness of breath. His regular dialysis days are Monday, , Monday. Today is his day of dialysis. Patient was admitted overnight by the hospitalist service for management of right sided chest pain and possible fluid overload. Nephrology service was called to further help in the management of end-stage renal disease, dialysis and ultrafiltration today. When I saw the patient today morning he was comfortable, laying in bed. No apparent respiratory distress and he was not having any chest pain when I saw him this morning. PAST MEDICAL HISTORY: End stage renal disease, on hemodialysis every Monday, , Monday. Paroxysmal atrial fibrillation. History of congestive heart failure. Chronic obstructive pulmonary disease (COPD). Obstructive sleep apnea. Hypertension. Diabetes mellitus type 2. Peripheral vascular disease. PAST SURGICAL HISTORY: Status-post right above knee amputation. Status-post left below knee amputation. History of carpal tunnel surgery. History of coronary artery bypass grafting in 2007. Status-post left upper arm arteriovenous fistula in 2015. History of right upper arm arteriovenous graft placed in 2011 which has failed now. Status-post cholecystectomy in 2014. History of peripheral angiogram in the past. ALLERGIES: Patient is allergic to IODINE and ATORVASTATIN. CURRENT INPATIENT MEDICATIONS: Patients medications were all reviewed by me and that include: - Tylenol as needed - albuterol as needed - aspirin 81 mg by mouth twice a day -Dulcolax as needed - Tums 1 gram by mouth four times a day as needed for heartburn. - Klonopin 0.5 mg by mouth daily as needed anxiety - gabapentin 200 mg at night - insulin Levemir 24 units every morning - insulin lispro sliding scale - isosorbide dinitrate 30 mg by mouth daily - Claritin 10 mg by mouth nightly - metoprolol XL 50 mg by mouth nightly - Zofran intravenous as needed - Protonix 20 mg daily - roflumilast (Daliresp) 500 mcg by mouth daily - Crestor 20 mg at night - Renvela 800 mg by mouth with meals - Flomax 0.4 mg by mouth at night - trazodone 25 mg at night - vitamin D 2,000 units by mouth daily - warfarin 4 mg by mouth at night FAMILY HISTORY: No significant family history of end-stage renal disease requiring hemodialysis. There is a positive history of diabetes and heart failure in father. SOCIAL HISTORY: Patient is a resident of [facility]. Patient is a former smoker. He quit in 1991 and he also quit drinking in 1991 as well. He denies any illicit drug abuse. REVIEW OF SYSTEMS: CONSTITUTIONAL: Patient denies any fever, chills, rigors. EYES: Denies any blurry vision or double vision. ENT: He denies any dysphagia or odynophagia, ear discharge. CARDIOVASCULAR: Patient reports right sided chest pain. He reports history of atrial fibrillation but denies any palpitations. RESPIRATORY: He denies any shortness of breath at this time. He denies any cough and wheezing. GASTROINTESTINAL (GI): Denies any pain, pain in abdomen, constipation, or diarrhea. GENITOURINARY (): He denies any hematuria or dysuria but reports history of endstage renal disease. MUSCULOSKELETAL: He denies any muscle aches and pains but reports bilateral lower extremity amputations. CENTRAL NERVOUS SYSTEM: He denies history of seizures or strokes in the past. PSYCHE: He reports history of depression. SKIN: He denies any rashes or ulcers. HEMATOLOGIC/ONCOLOGIC: He reports history of anemia secondary to end-stage renal disease but denies any history of cancers. ENDOCRINE: Patient reports diabetes. All of the review of system is negative. PHYSICAL EXAMINATION: GENERAL: Patient is awake, alert and oriented times three, laying in bed. No apparent distress. CURRENT VITAL SIGNS: Temperature 97.3 degrees Fahrenheit. Blood pressure 109/58. Pulse 64. Respiratory rate 18. Saturating 97% on nasal cannula. HEAD AND NECK EXAM: Extraocular muscles intact. Pupils equally round and reactive to light. Mucous membranes are moist. Neck is supple. There is no jugular venous distention (JVD). CARDIOVASCULAR: S1, S2. Irregularly irregular heart rate. No murmur, rub or gallop. RESPIRATORY: Chest is clear to auscultation bilaterally. Bilateral equal air entry. No rales or rhonchi. ABDOMEN: Soft. Positive bowel sounds. Nontender. Positive small periumbilical hernia and old surgical scars from cholecystectomy. GENITOURINARY: No hernias appreciated. Patient does not have a Bautista at this time. MUSCULOSKELETAL: Patient has a right above knee amputation and left below knee amputation. Otherwise normal range of movement in bilateral upper extremities. No clubbing or cyanosis. CENTRAL NERVOUS SYSTEM: No focal neurological deficit. Power is 5/5 in bilateral upper extremities. PSYCHE: Normal mood and affect. SKIN: No rashes or ulcers. AV ACCESS: Patient has a left upper arm AV fistula with positive thrill and bruit. LAB REVIEW: CBC showed a WBC of 6.2, hemoglobin 11.2 and platelets of 112. INR 2.38. BMP showed a sodium of 135, potassium 4.4, chloride 99, bicarbonate 29, BUN 44, creatinine 4.5, phosphorus 4.9, magnesium 2.7, albumin 3. IMAGING: Chest x-ray done last night showed interstitial infiltrates and bibasilar pleural effusions. Doppler or the bilateral lower extremities was negative for deep venous thrombosis (DVT). ASSESSMENT: 66-year-old male with past medical history of diabetes, history of bilateral lower extremity amputations, end stage renal disease on hemodialysis, coronary artery disease status-post CABG in the past, and paroxysmal atrial fibrillation, admitted this time because of right sided chest pain and some shortness of breath. PLAN: 1. Right sided chest pain. Patient is asymptomatic at this time. He denies any chest pain at this time. He reports that morphine helped him with the pain. There was no CT angiogram of the chest done, however Doppler of the lower extremity ws negative. The patient will be dialyzed today and we should try to remove about 2 liters of fluid to help with possible fluid overload. 2. End stage renal disease on hemodialysis. Patients regular dialysis days are Monday, , Monday. He will be dialyzed today according to his regular schedule and 3K bath. 3. Paroxysmal atrial fibrillation. Heart rate is controlled at this time. Continue Coumadin anticoagulation at this time. Continue metoprolol XL 50 mg by mouth at night. 4. Hypertension. Blood pressure is well controlled at this time. Continue current dose of metoprolol and isosorbide. 5. Chronic kidney disease mineral bone disease. Continue current dose of Renvela 800 mg by mouth three times a day with meals. Phosphorous level is acceptable at 4.8 today. 6. Hyponatremia. Patient has mild hyponatremia, likely secondary to fluid overload and end-stage renal disease. Hemodialysis and our interpretation will help improve hyponatremia. 7. Anemia and end-stage renal disease. Hemoglobin is 11.2 which is acceptable. No need or Aranesp administration at this time. 8. Diabetes mellitus type 2. Continue insulin sliding scale and insulin Levemir as per home dosage. Rest of the management is as per primary team. Thank you for involving us in the care of this patient. We shall be happy to follow the patient along with you tomorrow morning. Patients dialysis was arranged. Patient will be dialyzed today in the afternoon. MTDD
[2016-12-19 08:44] LABS: INR 1.58
== END ==
LOC: SKLAB4 11:41
PROVIDERS: ATTEND Internal Medicine
DX: N18.6 End stage renal disease (principal); J44.9 Chronic obstructive pulmonary disease, unspecified; I48.0 Paroxysmal atrial fibrillation; I12.0 Hypertensive chronic kidney disease with stage 5 chronic kidney disease or end stage renal disease; E11.9 Type 2 diabetes mellitus without complications; E87.1 Hypo-osmolality and hyponatremia; I73.9 Peripheral vascular disease, unspecified; Z89.611 Acquired absence of right leg above knee; Z95.5 Presence of coronary angioplasty implant and graft; Z79.899 Other long term (current) drug therapy; Z79.82 Long term (current) use of aspirin; Z88.8 Allergy status to other drugs, medicaments and biological substances; Z79.01 Long term (current) use of anticoagulants

== ENCOUNTER → 2017-01-05 | Outpatient (REF) | payer MEDICARE, MEDICAID ==
[2017-01-05 20:42] LABS: ADD MANUAL DIFFER YES; MEAN CORPUSCULAR HGB CONC 31.8 g/dl (32.0-36.5); MEAN CORPUSCULAR VOLUME 87.9 fl (80.0-96.0); PLATELET COUNT, AUTOMATED 114 k/mm3 (150-450); RED CELL DISTRIBUTION WIDTH 16.6 % (11.5-14.5); WHITE BLOOD COUNT 6.5 K/mm3 (4.0-10.0)
[2017-01-05 21:15] LABS: BASOPHILS 3 % (0-4); EOSINOPHILS 2 % (0-5)
[2017-01-05 21:16] LABS: ANISOCYTOSIS 1+; OVALOCYTES 1+
[2017-01-05 21:17] LABS: POIKILOCYTOSIS 1+
--- NOTE | 2017-01-06 15:05 | REP ---
CHEST, TWO VIEWS: HISTORY: Fever. COMPARISON: 12/04/2016 An increase in interstitial markings is present in the lungs. Small bilateral pleural effusions are present. The cardiac silhouette is enlarged. The pulmonary vasculature is prominent. The bony structure is intact. IMPRESSION: Congestive heart failure. Signed by Vivek Hyde MD 01/06/2017 03:11 P
== END ==
LOC: SKLAB4 18:41
PROVIDERS: ATTEND Internal Medicine
DX: R50.9 Fever, unspecified (principal)

== ENCOUNTER → 2017-01-06 | Outpatient (REF) | LOC: SKLAB4 18:41 | PROVIDERS: ATTEND Internal Medicine | DX: R50.9 Fever, unspecified (principal) ==

== ENCOUNTER → 2017-01-10 | Outpatient (REF) | payer MEDICARE, BC, MEDICAID ==
--- NOTE | 2017-01-10 20:55 | ECGEPIP ---
Stationary ECG Study [facility] Test Date: 2017-01-10 Pat Name: NURY CARABALLO Department: Room: - Gender: M Convalescent Sitter: [facility] : 1950 Requested By: Edmond Gan Order Number: [id number] Reading MD: Yoandy Valente Measurements Intervals [place] Rate: 87 P: MS: 0 QRS: 132 QRSD: 127 T: 210 QT: 436 QTc: 527 Interpretive Statements ATRIAL FIBRILLATION Low limb lead voltages. Nonspecific ST-T abnormality. No significant change compared with 12/04/2016. Electronically Signed On 01-10-2017 20:55:49 EDT by Yoandy Valente
== END ==
LOC: M EKG 17:42
PROVIDERS: ATTEND Internal Medicine
DX: I50.9 Heart failure, unspecified (principal); R51 Headache

== ENCOUNTER → 2017-01-10 | Outpatient (REF) | payer MEDICARE, MEDICAID ==
--- NOTE | 2017-01-10 20:56 | REP ---
Clinical: History of CHF and cough. Comparison: 01/06/2017. Findings: Cardiomegaly and mild/early moderate pulmonary vascular congestion with interstitial edema and suspected pleural fluid is again identified but appears improved when compared to prior examination. Scattered atelectasis cannot be excluded. No pneumothorax. Impression: Improved pulmonary vascular congestion/interstitial edema. Cannot exclude small residual pleural fluid or scattered atelectasis. No new acute process identified. Signed by Dae Patel MD 01/10/2017 08:55 P
== END ==
LOC: SKLAB4 19:59
PROVIDERS: ATTEND Internal Medicine
DX: I50.9 Heart failure, unspecified (principal); R51 Headache

== ENCOUNTER → 2017-02-03 | Outpatient (CLI) | payer MEDICARE, BC, MEDICAID ==
[~2017-02-03] MED LIST changes: +ISOVUE-300 61% 50ML VIAL (Q9967) As Ordered ONE; +MIDAZOLAM INJ 2 MG/2 ML VIAL (J2250) As Ordered ONE; +fentaNYL 100 MCG/2 ML INJECTION (J3010) As Ordered ONE
--- NOTE | 2017-02-22 13:48 | REPKIM ---
DATE OF PROCEDURE: 02/03/2017 PREPROCEDURE DIAGNOSES: Endstage renal disease, dysfunctional left brachial artery to axillary vein arteriovenous graft. POSTPROCEDURE DIAGNOSES: Endstage renal disease, dysfunctional left brachial artery to axillary vein arteriovenous graft. PROCEDURE: Left brachial artery to axillary vein arteriovenous graft fistulogram, retrograde left brachial artery angiogram, left subclavian artery angioplasty with 7 x 150 mm balloon, left axillary vein angioplasty with 7 x 150 mm balloon, left brachial artery to axillary arteriovenous graft angioplasty with 7 x 150 mm balloon. SURGEON: Dr. Jennifer Blair. PNEUMATIC HOIST OPERATOR: Carina Hoang ANESTHESIA: Local with sedation with 1 mg of Versed, 50 mcg of fentanyl and 1 mL of 2% lidocaine. Sedation time was from 8:27 a.m. to 8:38 a.m. with the sedation administered by myself and the cardiopulmonary monitoring performed by the nurse in the room and the procedure was performed under my direct supervision and direction and I was present for and directed the entire case. CONTRAST: 6 mL. ESTIMATED BLOOD LOSS: Minimal. IV FLUIDS: 100 mL COMPLICATION: None. DRAINS: None. SPECIMENS: None. IMPLANTS: None. INDICATION: The patient is a 66-year-old male with a previous left brachial artery axillary vein arteriovenous graft that has required multiple angioplasties in the past due to stenosis within the venous outflow tract and at the graft to venous anastomosis. The patient now has pulsatility with excessive bleeding on de-canalization and will undergo a fistulogram with possible angioplasty and/or stent. Risks, benefits and alternative treatment options were discussed with the patient. Alternative treatment options included but were not limited to no intervention. DESCRIPTION OF PROCEDURE: The patient was taken to the angiography suite and placed supine on the angiography room table and the left upper extremity was prepped and draped in the standard surgical fashion. The graft was cannulated with the micropuncture needle after anesthetizing the overlying skin with 1% lidocaine. A fistulogram was performed showing an approximate 70% stenosis at the graft to axillary vein anastomosis. The was extending into the axillary vein and into the subclavian vein. The subclavian vein, axillary vein and graft were angioplastied with a 7 x 150 mm balloon with a followup fistulogram showing resolution of the stenosis. A retrograde left brachial artery angiogram was performed during inflation of the 7 x 150 mm balloon showing the remainder of the graft to be patent to the brachial artery with no stenosis at the graft to brachial artery anastomosis. Catheters and wires were removed. The arteriotomy was closed using a #2-0 Prolene suture. All instrument, sponge and needle counts were correct at the end of the case. There were no complications. Dr. Blair was present for and directed the entire case. The patient was transferred to [facility] and subsequently discharged in stable condition, once the #2-0 Prolene suture had been removed and good hemostasis noted. RADIOLOGIC SUPERVISION INTERPRETATION: The fistulogram showed stenosis in the graft to axillary vein anastomosis, which extended into the axillary vein and subclavian vein. The subclavian vein and axillary vein and graft were angioplastied with a 7 x 150 mm balloon with a completion fistulogram showing resolution of the stenosis. Retrograde brachial artery angiogram showed the remainder of the graft to be patent with no intervention required.
== END | disposition home or self-care (01) ==
LOC: M IRPRO 07:24
PROVIDERS: ATTEND Surgery Vascular Surgery
DX: T82.858A Stenosis of other vascular prosthetic devices, implants and grafts, initial encounter (principal); N18.6 End stage renal disease
CPT/HCPCS: 36902; 36907; 99152; C1725; C1894; J2250; J3010; Q9967

== ENCOUNTER → 2017-04-12 | Outpatient (CLI) | payer MEDICARE, MEDICAID ==
[~2017-04-12] MED LIST changes: +ALTEPLASE 2 MG/2 ML VIAL (J2997 PER 1MG) As Ordered ONE; +CINA30TA PO; +CLOP75TA2 PO; +ELIQ2.5T PO; +GUAI1SYP8 PO; +HEPARIN 1,000 UNITS/ML 10ML VIAL (FOR RADIOLOGY& DIALYSIS ONLY) As Ordered ONE; +HEPARIN SOD (PORCINE) 5000 UNITS/ML VIAL As Ordered ONE; +LIDOCAINE 2% MDV 20 ML VIAL As Ordered ONE; +LORA10TA2 PO; +METO1TAB87 PO; +MULT1TAB10 PO; +PANT20TA PO; +RANI15TA PO; +SENN8.6T7 PO; +SENS60TA PO; +SIME180C PO; +SIME80TA PO; +TRAZ-136 PO; +VITMTA PO; +ZOCO40TA PO
--- NOTE | 2017-05-03 09:56 | REPIR ---
DATE OF PROCEDURE: 04/12/2017 PREPROCEDURE DIAGNOSIS: Endstage renal disease. Thrombosed left brachial artery to axillary vein arteriovenous graft. POSTPROCEDURE DIAGNOSIS: Endstage renal disease. Thrombosed left brachial artery to axillary vein arteriovenous graft. PROCEDURE: Insulation of thrombolytic with 6 mg of tissue plasminogen activator (TPA) and 5000 units of heparin into thrombosed left brachial artery axillary vein arteriovenous graft. Left brachial artery to axillary venous graft fistulogram. Thrombectomy percutaneously of the left brachial artery axillary vein arteriovenous graft. Selective left brachial artery catheter placement with angiogram and runoff. Left brachial artery and arteriovenous graft angioplasty with an 8 x 200 balloon. Left arteriovenous graft and axillary vein angioplasty with a 10 x 80 balloon. SURGEON: Dr. Jennifer Blair. WELLNESS PROGRAM MANAGER: Carina Tim. ANESTHESIA: Local with sedation. FLUORO TIME: 2.222 minutes. CONTRAST: 4 mL. TISSUE PLASMINOGEN ACTIVATOR: 6 mg HEPARIN: 5000 units. COMPLICATIONS: None. DRAINS: None. SPECIMENS: None. IMPLANTS: None. INDICATION: The patient is a 66-year-old male with endstage renal disease who dialyzes through a left brachial artery to axillary vein arteriovenous graft. The patient has thrombosis of the graft and requires thrombectomy for re-establishing flow through the graft for hemodialysis. Risks, benefits, alternatives and treatment options have been discussed with the patient. DESCRIPTION OF PROCEDURE: The patient was taken to the angiography suite, placed supine on the angiography room table after having pre-injected the left brachial artery and axillary vein intravenous graft with TPA and heparin in the holding area. Two accesses were placed in the graft in a crossing fashion. A catheter was placed in the brachial artery and an angiogram performed showing residual thrombus in the graft. The graft was then angioplastied with an 8 x 200 balloon towards the arterial limb and within the brachial artery. The venous limb was angioplastied with a 10 x 80 balloon extending into the axillary vein. Mechanical thrombectomy was performed with the balloons with removal of thrombus through the sheath which was aspirated while during the mechanical thrombectomy. Final fistulogram showed resolution of the stenosis and thrombosis with good flow through the graft. The sheaths were removed and #2-0 Prolene sutures placed at the puncture site for hemostasis. Dressings were then applied. The patient tolerated the procedure well. All instrument, sponge and needle counts were correct at the end of the case. There were no complications. Dr. Blair was present for and directed the entire case. The patient was transferred to the holding area and subsequently discharged in stable condition. The arteriovenous graft is stable for use for access for hemodialysis. RADIOLOGIC SUPERVISION AND INTERPRETATION: The graft was accessed in two sites, one towards the venous outflow, one towards the arterial inflow and a brachial artery angiogram with runoff showed thrombus within the graft. The graft underwent angioplasty and the arterial line with an 8 x 200 balloon and the venous done with a 10 x 80 balloon. Final fluoroscopic image and fistulogram showed resolution of the stenosis and thrombosis with good flow through the arteriovenous graft.
== END | disposition home or self-care (01) ==
LOC: M IRPRO 11:39
PROVIDERS: ATTEND Surgery Vascular Surgery
DX: T82.868A Thrombosis due to vascular prosthetic devices, implants and grafts, initial encounter (principal); N18.6 End stage renal disease; Z99.2 Dependence on renal dialysis
CPT/HCPCS: 36905; C1725; C1769; C1887; C1894; J2997; Q9967

== ENCOUNTER 2017-05-06 19:30 | Observation (INO) | payer MEDICARE, MEDICAID ==
[2017-05-06 20:44] LABS: BASO # 0.1 10^3/uL (0.0-0.2); BASO % 0.8 % (0.0-1.0); EOS # 0.1 10^3/uL (0.0-0.50); IMMATURE GRANULOCYTE % 0.3 % (0-0); LYMPH # 0.4 10^3/uL (1.5-4.5); LYMPH % 5.8 % (24.0-44.0); MEAN CORPUSCULAR HEMOGLOBIN 28.9 pg (27.0-33.0); MEAN CORPUSCULAR VOLUME 90.4 fl (80.0-96.0); MONO # 0.5 10^3/uL (0.0-0.8); MONO % 6.5 % (0.0-5.0); NEUTROPHILS # 6.6 10^3/uL (1.8-7.7); NEUTROPHILS % 85.6 % (36.0-66.0); PLATELET COUNT, AUTOMATED 116 10^3/uL (150-450); RED CELL DISTRIBUTION WIDTH 14.7 % (11.5-14.5); WHITE BLOOD COUNT 7.7 10^3/uL (4.0-10.0)
[2017-05-06] MEDS: METOPROLOL SUCC (TopROL XL) 50MG **XL** TAB PO (21:00)
[2017-05-06] MEDS: GABAPENTIN 100 MG CAP PO (21:00)
[2017-05-06] MEDS: SIMVASTATIN 40 MG TAB PO (21:00)
[2017-05-06] MEDS: LORATADINE 10 MG TAB PO (21:00)
[2017-05-06] MEDS: traZODone 100 MG TAB PO (21:00)
[2017-05-06] MEDS: PANTOPRAZOLE 40MG INJ (PROTONIX) (C9113) IV (21:02)
[2017-05-06 21:10] LABS: ALBUMIN 3.7 GM/DL (3.2-5.2); ALBUMIN/GLOBULIN RATIO 0.97 (1.00-1.93); ALKALINE PHOSPHATASE 273 U/L (45-117); ALT/SGPT 17 U/L (12-78); ANION GAP 7 MEQ/L (8-16); AST/SGOT 13 U/L (7-37); BILIRUBIN,DIRECT 0.3 MG/DL (0.0-0.2); BILIRUBIN,TOTAL 0.6 MG/DL (0.2-1.0); BLOOD UREA NITROGEN 25 MG/DL (7-18); CALCIUM LEVEL 8.7 MG/DL (8.8-10.2); CARBON DIOXIDE LEVEL 31 MEQ/L (21-32); CHLORIDE LEVEL 99 MEQ/L (98-107); CREATININE FOR GFR 3.59 MG/DL (0.70-1.30); GLOMERULAR FILTRATION RATE 18.1 (>49); GLUCOSE, FASTING 93 MG/DL (80-110); POTASSIUM SERUM 3.8 MEQ/L (3.5-5.1); SODIUM LEVEL 137 MEQ/L (136-145); TOTAL PROTEIN 7.5 GM/DL (6.4-8.2)
[2017-05-07] MEDS: SIMETHICONE 80 MG CHEW TAB PO ×3 (01:54→20:32)
[2017-05-07] MEDS ORDERED: POLYVINYL ALCOHOL OPHTH SOLN 15 ML(LIQUITEARS) OU (02:00)
[2017-05-07] MEDS ORDERED: ONDANSETRON 4MG/2ML VIAL (J2405) IV (02:00)
[2017-05-07] MEDS ORDERED: IPRATROPIUM 0.5MG/ALBUTEROL 2.5MG INH SOL UD 3ML (DUONEB)(J7620) INH (02:00)
[2017-05-07] MEDS ORDERED: BISACODYL 10 MG SUPP PR (02:00)
[2017-05-07] MEDS ORDERED: GLUCOSE 4 GM CHEW TABLET PO (02:15)
[2017-05-07] MEDS ORDERED: SODIUM CHLORIDE NASAL 0.65% SPRAY BTL (OCEAN) (02:15)
[2017-05-07] MEDS ORDERED: DEXTROSE 50% 50 ML SYRINGE IV (02:15)
[2017-05-07] MEDS ORDERED: GLUCAGON FOR INJ 1 MG VIAL (J1610) SC (02:15)
[2017-05-07 06:10] LABS: BASO # 0.1 10^3/uL (0.0-0.2); BASO % 0.7 % (0.0-1.0); EOS # 0.2 10^3/uL (0.0-0.50); EOS % 2.3 % (0.0-3.0); IMMATURE GRANULOCYTE % 0.3 % (0-0); LYMPH # 0.6 10^3/uL (1.5-4.5); LYMPH % 9.1 % (24.0-44.0); MEAN CORPUSCULAR HEMOGLOBIN 29.3 pg (27.0-33.0); MEAN CORPUSCULAR HGB CONC 32.2 g/dl (32.0-36.5); MEAN CORPUSCULAR VOLUME 90.8 fl (80.0-96.0); MONO # 0.7 10^3/uL (0.0-0.8); MONO % 9.4 % (0.0-5.0); NEUTROPHILS # 5.5 10^3/uL (1.8-7.7); NEUTROPHILS % 78.2 % (36.0-66.0); PLATELET COUNT, AUTOMATED 112 10^3/uL (150-450); RED CELL DISTRIBUTION WIDTH 14.6 % (11.5-14.5)
[2017-05-07 06:26] LABS: ANION GAP 7 MEQ/L (8-16); BLOOD UREA NITROGEN 31 MG/DL (7-18); CALCIUM LEVEL 8.6 MG/DL (8.8-10.2); CARBON DIOXIDE LEVEL 29 MEQ/L (21-32); CHLORIDE LEVEL 101 MEQ/L (98-107); CREATININE FOR GFR 4.13 MG/DL (0.70-1.30); GLOMERULAR FILTRATION RATE 15.4 (>49); GLUCOSE, FASTING 98 MG/DL (80-110); POTASSIUM SERUM 3.7 MEQ/L (3.5-5.1); SODIUM LEVEL 137 MEQ/L (136-145)
[2017-05-07] MEDS: HumaLOG INSULIN (NovoLOG) PER UNIT SC ×4 (07:30→20:33)
[2017-05-07] MEDS: (RENVELA) SEVELAMER **CARBONate** 800 MG TAB PO ×3 (08:24→17:06)
[2017-05-07] MEDS: FAMOTIDINE 20 MG TAB PO (08:24)
[2017-05-07] MEDS: APIXABAN 2.5 MG TAB (ELIQUIS) PO (08:25)
[2017-05-07] MEDS: ASPIRIN 81 MG ENTERIC TAB PO (08:25)
[2017-05-07] MEDS: SENOKOT S TAB PO (08:25)
[2017-05-07] MEDS: CINACALCET 30 MG TAB (SENSIPAR) PO (08:25)
[2017-05-07] MEDS: MULTIVITAMINS/MINERALS THERAP 1 TAB PO (08:25)
[2017-05-07] MEDS: PANTOPRAZOLE 20 MG TAB PO (08:25)
[2017-05-07] MEDS: ISOSORBIDE MON. (IMDUR) 30 MG XR TAB PO (08:26)
[2017-05-07] MEDS: traZODone 100 MG TAB PO (20:22)
[2017-05-07] MEDS: SIMVASTATIN 40 MG TAB PO (20:22)
[2017-05-07] MEDS: GABAPENTIN 100 MG CAP PO (20:22)
[2017-05-07] MEDS: LORATADINE 10 MG TAB PO (20:22)
[2017-05-07] MEDS: METOPROLOL TART 25 MG TABLET PO (20:33)
[2017-05-08 05:14] LABS: MEAN CORPUSCULAR HGB CONC 31.5 g/dl (32.0-36.5); MEAN CORPUSCULAR VOLUME 91.9 fl (80.0-96.0); PLATELET COUNT, AUTOMATED 105 10^3/uL (150-450); RED CELL DISTRIBUTION WIDTH 14.6 % (11.5-14.5); WHITE BLOOD COUNT 5.9 10^3/uL (4.0-10.0)
[2017-05-08 05:36] LABS: ANION GAP 8 MEQ/L (8-16); BLOOD UREA NITROGEN 44 MG/DL (7-18); CALCIUM LEVEL 8.7 MG/DL (8.8-10.2); CARBON DIOXIDE LEVEL 30 MEQ/L (21-32); CHLORIDE LEVEL 99 MEQ/L (98-107); CREATININE FOR GFR 5.19 MG/DL (0.70-1.30); GLOMERULAR FILTRATION RATE 11.8 (>49); GLUCOSE, FASTING 177 MG/DL (80-110); POTASSIUM SERUM 3.9 MEQ/L (3.5-5.1); SODIUM LEVEL 137 MEQ/L (136-145)
[2017-05-08] MEDS: SENOKOT S TAB PO (09:06)
[2017-05-08] MEDS: CINACALCET 30 MG TAB (SENSIPAR) PO (09:06)
[2017-05-08] MEDS: HumaLOG INSULIN (NovoLOG) PER UNIT SC ×4 (09:06→20:50)
[2017-05-08] MEDS: MULTIVITAMINS/MINERALS THERAP 1 TAB PO (09:07)
[2017-05-08] MEDS: FAMOTIDINE 20 MG TAB PO (09:07)
[2017-05-08] MEDS: ISOSORBIDE MON. (IMDUR) 30 MG XR TAB PO (09:07)
[2017-05-08] MEDS: PANTOPRAZOLE 20 MG TAB PO (09:07)
[2017-05-08] MEDS: ASPIRIN 81 MG ENTERIC TAB PO (09:07)
[2017-05-08] MEDS: (RENVELA) SEVELAMER **CARBONate** 800 MG TAB PO ×3 (09:07→17:26)
[2017-05-08] MEDS: METOPROLOL TART 25 MG TABLET PO ×2 (09:08→20:49)
[2017-05-08] MEDS: SIMETHICONE 80 MG CHEW TAB PO (12:30)
[2017-05-08] MEDS: CLOPIDOGREL 75 MG TAB PO (12:53)
[2017-05-08] MEDS: ACETAMINOPHEN TAB 650MG DOSE (2X325MG) PO (16:15)
[2017-05-08] MEDS: MAALOX 30 ML SUSP *UDC PO (16:15)
[2017-05-08] MEDS: LORATADINE 10 MG TAB PO (20:48)
[2017-05-08] MEDS: traZODone 100 MG TAB PO (20:48)
[2017-05-08] MEDS: GABAPENTIN 100 MG CAP PO (20:48)
[2017-05-08] MEDS: predniSONE 20 MG TAB PO (20:48)
[2017-05-08] MEDS: SIMVASTATIN 40 MG TAB PO (20:48)
[2017-05-08] MEDS: clonazePAM 0.5 MG TAB PO (20:49)
[2017-05-09 05:11] LABS: MEAN CORPUSCULAR HEMOGLOBIN 29.1 pg (27.0-33.0); MEAN CORPUSCULAR HGB CONC 31.6 g/dl (32.0-36.5); MEAN CORPUSCULAR VOLUME 92.2 fl (80.0-96.0); PLATELET COUNT, AUTOMATED 100 10^3/uL (150-450); RED CELL DISTRIBUTION WIDTH 14.5 % (11.5-14.5); WHITE BLOOD COUNT 5.6 10^3/uL (4.0-10.0)
[2017-05-09 05:25] LABS: ANION GAP 10 MEQ/L (8-16); BLOOD UREA NITROGEN 58 MG/DL (7-18); CALCIUM LEVEL 8.2 MG/DL (8.8-10.2); CARBON DIOXIDE LEVEL 28 MEQ/L (21-32); CHLORIDE LEVEL 99 MEQ/L (98-107); CREATININE FOR GFR 6.51 MG/DL (0.70-1.30); GLOMERULAR FILTRATION RATE 9.1 (>49); GLUCOSE, FASTING 172 MG/DL (80-110); POTASSIUM SERUM 4.4 MEQ/L (3.5-5.1); SODIUM LEVEL 137 MEQ/L (136-145)
[2017-05-09] MEDS: HumaLOG INSULIN (NovoLOG) PER UNIT SC (07:53)
[2017-05-09] MEDS: (RENVELA) SEVELAMER **CARBONate** 800 MG TAB PO (07:55)
[2017-05-09] MEDS: predniSONE 20 MG TAB PO (07:56)
[2017-05-09] MEDS: MULTIVITAMINS/MINERALS THERAP 1 TAB PO (07:56)
[2017-05-09] MEDS: SENOKOT S TAB PO (07:56)
[2017-05-09] MEDS: ASPIRIN 81 MG ENTERIC TAB PO (07:56)
[2017-05-09] MEDS: CLOPIDOGREL 75 MG TAB PO (07:56)
[2017-05-09] MEDS: CINACALCET 30 MG TAB (SENSIPAR) PO (07:56)
[2017-05-09] MEDS: FAMOTIDINE 20 MG TAB PO (07:56)
[2017-05-09] MEDS: PANTOPRAZOLE 20 MG TAB PO (07:56)
[2017-05-09] MEDS: METOPROLOL TART 25 MG TABLET PO (07:58)
[2017-05-09] MEDS: ISOSORBIDE MON. (IMDUR) 30 MG XR TAB PO (07:59)
[2017-05-09] MEDS: SIMETHICONE 80 MG CHEW TAB PO (08:37)
== END 2017-05-09 10:32 | disposition short-term general hospital (02) ==
LOC: M ED INP 19:31 → M PCU 05-07 03:28 → M ED 19:30
DX: I21.4 Non-ST elevation (NSTEMI) myocardial infarction (principal); R14.2 Eructation; E11.22 Type 2 diabetes mellitus with diabetic chronic kidney disease; N18.9 Chronic kidney disease, unspecified; I48.0 Paroxysmal atrial fibrillation; I50.9 Heart failure, unspecified; G47.33 Obstructive sleep apnea (adult) (pediatric); J44.9 Chronic obstructive pulmonary disease, unspecified; J96.11 Chronic respiratory failure with hypoxia; I25.10 Atherosclerotic heart disease of native coronary artery without angina pectoris; E11.42 Type 2 diabetes mellitus with diabetic polyneuropathy; Z87.891 Personal history of nicotine dependence; Z89.9 Acquired absence of limb, unspecified; Z88.8 Allergy status to other drugs, medicaments and biological substances; Z91.041 Radiographic dye allergy status; Z99.2 Dependence on renal dialysis; Z79.82 Long term (current) use of aspirin; Z79.4 Long term (current) use of insulin; Z79.899 Other long term (current) drug therapy; Z79.51 Long term (current) use of inhaled steroids; Z99.81 Dependence on supplemental oxygen
CPT/HCPCS: C9113

== ENCOUNTER 2017-05-17 22:37 | Inpatient (IN) | payer MEDICARE, MEDICAID ==
[2017-05-18 02:23] LABS: BASO # 0.1 10^3/uL (0.0-0.2); BASO % 0.7 % (0.0-1.0); EOS # 0.1 10^3/uL (0.0-0.50); EOS % 1.9 % (0.0-3.0); HEMATOCRIT 35.5 % (42.0-52.0); HEMOGLOBIN 11.3 g/dl (14.0-18.0); IMMATURE GRANULOCYTE % 0.3 % (0-0); LYMPH # 0.5 10^3/uL (1.5-4.5); LYMPH % 6.3 % (24.0-44.0); MEAN CORPUSCULAR HEMOGLOBIN 29.3 pg (27.0-33.0); MEAN CORPUSCULAR HGB CONC 31.8 g/dl (32.0-36.5); MONO # 0.7 10^3/uL (0.0-0.8); MONO % 9.8 % (0.0-5.0); PLATELET COUNT, AUTOMATED 100 10^3/uL (150-450); RED BLOOD COUNT 3.86 10^6/uL (4.30-6.10); RED CELL DISTRIBUTION WIDTH 14.8 % (11.5-14.5); WHITE BLOOD COUNT 7.5 10^3/uL (4.0-10.0)
[2017-05-18 02:38] LABS: INR 1.54; PROTHROMBIN TIME 18.9 SECONDS (12.4-14.5)
[2017-05-18 02:43] LABS: ANION GAP 9 MEQ/L (8-16); BLOOD UREA NITROGEN 48 MG/DL (7-18); CALCIUM LEVEL 8.8 MG/DL (8.8-10.2); CARBON DIOXIDE LEVEL 29 MEQ/L (21-32); CHLORIDE LEVEL 96 MEQ/L (98-107); CREATININE FOR GFR 5.85 MG/DL (0.70-1.30); GLOMERULAR FILTRATION RATE 10.3 (>49); GLUCOSE, FASTING 198 MG/DL (80-110); POTASSIUM SERUM 4.4 MEQ/L (3.5-5.1); SODIUM LEVEL 134 MEQ/L (136-145)
[2017-05-18] MEDS ORDERED: GLUCAGON FOR INJ 1 MG VIAL (J1610) SC (03:00)
[2017-05-18] MEDS ORDERED: GLUCOSE 4 GM CHEW TABLET PO (03:00)
[2017-05-18] MEDS ORDERED: DEXTROSE 50% 50 ML SYRINGE IV (03:00)
[2017-05-18] MEDS: VANCOMYCIN HCL 1,000 MG, VIAL MATE ADAPTER 1 EACH in D5W 250 ML IV (03:31)
[2017-05-18] MEDS ORDERED: POLYVINYL ALCOHOL OPHTH SOLN 15 ML(LIQUITEARS) OU (04:00)
[2017-05-18] MEDS: IPRATROPIUM 0.5MG/ALBUTEROL 2.5MG INH SOL UD 3ML (DUONEB)(J7620) INH ×5 (04:00→23:38)
[2017-05-18] MEDS ORDERED: SODIUM CHLORIDE NASAL 0.65% SPRAY BTL (OCEAN) (04:00)
[2017-05-18] MEDS ORDERED: VANCOMYCIN INTERMITTENT/PULSE DOSING BY CLINICAL PHARMACIST PER DOSING PROTOCOL XX (04:45)
[2017-05-18] MEDS ORDERED: HEPARIN SOD (PORCINE) 5000 UNITS/ML VIAL SC (06:00)
[2017-05-18] MEDS: PIPERACILLIN/TAZOBACTAM SOD 2.25 GM in APPROPRIATE DILUENT 1 EA IV ×3 (06:56→21:58)
[2017-05-18] MEDS: ASPIRIN 81 MG ENTERIC TAB PO (06:57)
[2017-05-18] MEDS: APIXABAN 2.5 MG TAB (ELIQUIS) PO ×2 (06:57→21:56)
[2017-05-18] MEDS: VITAMIN D 1,000 INTERNATIONAL UNITS TABLET PO (06:57)
[2017-05-18] MEDS: DOCUSATE SODIUM 100 MG CAP PO ×2 (06:57→21:57)
[2017-05-18] MEDS: (RENVELA) SEVELAMER **CARBONate** 800 MG TAB PO ×3 (06:57→18:00)
[2017-05-18] MEDS: MULTIVITAMINS/MINERALS THERAP 1 TAB PO (06:57)
[2017-05-18] MEDS: POLYVINYL ALCOHOL OPHTH SOLN 15 ML(LIQUITEARS) OU ×2 (06:58→21:00)
[2017-05-18] MEDS: PANTOPRAZOLE 20 MG TAB PO (06:58)
[2017-05-18 07:14] LABS: BEDSIDE GLUCOSE 173 MG/DL (80-115)
[2017-05-18] MEDS: HumaLOG INSULIN (NovoLOG) PER UNIT SC ×3 (07:43→17:30)
[2017-05-18 07:52] LABS: CK-MB VALUE MASS 4.5 NG/ML (0.0-3.6); CPK CREATINE PHOSPHOKINASE 129 U/L (39-308); MB/CK RELATIVE INDEX 3.48 (< OR =4)
[2017-05-18] MEDS: methylPREDNISolone INJ 125 MG/2 ML VIAL (J2930) IV ×2 (11:35→21:58)
[2017-05-18 12:29] LABS: BEDSIDE GLUCOSE 167 MG/DL (80-115)
[2017-05-18] MEDS: ACETAMINOPHEN TAB 650MG DOSE (2X325MG) PO ×2 (14:51→21:56)
[2017-05-18] MEDS: SIMETHICONE 80 MG CHEW TAB PO (14:53)
[2017-05-18] MEDS: NITROGLYCERIN 0.4 MG SUBL TABLET SL ×3 (15:25→16:24)
[2017-05-18] MEDS ORDERED: IPRATROPIUM 0.5MG/ALBUTEROL 2.5MG INH SOL UD 3ML (DUONEB)(J7620) NEB (16:00)
[2017-05-18] MEDS: GI COCKTAIL 50ML BTL(HYOSCYAMINE/MAALOX/LIDOCAINE VISCOUS)(1:3:1) PO (16:00)
[2017-05-18 16:47] LABS: CK-MB VALUE MASS 5.7 NG/ML (0.0-3.6); CPK CREATINE PHOSPHOKINASE 113 U/L (39-308); MB/CK RELATIVE INDEX 5.04 (< OR =4); TROPONIN I 0.11 NG/ML (< 0.10)
[2017-05-18] MEDS: ISOSORBIDE MON. (IMDUR) 30 MG XR TAB PO (18:00)
[2017-05-18] MEDS: CINACALCET 30 MG TAB (SENSIPAR) PO (18:00)
[2017-05-18 21:39] LABS: BEDSIDE GLUCOSE 204 MG/DL (80-115)
[2017-05-18] MEDS: METOPROLOL SUCC (TopROL XL) 100MG *XL* TAB PO (21:55)
[2017-05-18] MEDS: GABAPENTIN 100 MG CAP PO (21:55)
[2017-05-18] MEDS: FAMOTIDINE 20 MG TAB PO (21:56)
[2017-05-18] MEDS: SIMVASTATIN 40 MG TAB PO (21:56)
[2017-05-18] MEDS: CLOPIDOGREL 75 MG TAB PO (21:56)
[2017-05-18] MEDS: SENOKOT S TAB PO (21:57)
[2017-05-18] MEDS: LEVEMIR (INSULIN DETEMIR) 1 UNITS/0.01ML SC (21:57)
[2017-05-18] MEDS: traZODone 100 MG TAB PO (21:57)
[2017-05-18 22:26] LABS: CPK CREATINE PHOSPHOKINASE 108 U/L (39-308); TROPONIN I 0.19 NG/ML (< 0.10)
[2017-05-18 22:27] LABS: CK-MB VALUE MASS 5.7 NG/ML (0.0-3.6); MB/CK RELATIVE INDEX 5.27 (< OR =4)
[2017-05-19] MEDS: clonazePAM 0.5 MG TAB PO ×2 (00:25→22:06)
[2017-05-19] MEDS: IPRATROPIUM 0.5MG/ALBUTEROL 2.5MG INH SOL UD 3ML (DUONEB)(J7620) INH ×4 (01:53→21:09)
[2017-05-19] MEDS ORDERED: SLF 3 ML SYR IV (04:15)
[2017-05-19] MEDS: PIPERACILLIN/TAZOBACTAM SOD 2.25 GM in APPROPRIATE DILUENT 1 EA IV ×3 (05:22→22:04)
[2017-05-19] MEDS: SLF 3 ML SYR IV ×3 (05:22→22:07)
[2017-05-19 05:52] LABS: BASO % 0.2 % (0.0-1.0); HEMATOCRIT 37.4 % (42.0-52.0); HEMOGLOBIN 12.2 g/dl (14.0-18.0); IMMATURE GRANULOCYTE % 0.4 % (0-0); LYMPH % 3.2 % (24.0-44.0); MEAN CORPUSCULAR HEMOGLOBIN 29.8 pg (27.0-33.0); MEAN CORPUSCULAR HGB CONC 32.6 g/dl (32.0-36.5); MEAN CORPUSCULAR VOLUME 91.2 fl (80.0-96.0); MONO # 0.1 10^3/uL (0.0-0.8); MONO % 2.3 % (0.0-5.0); NEUTROPHILS % 93.9 % (36.0-66.0); RED CELL DISTRIBUTION WIDTH 14.6 % (11.5-14.5); WHITE BLOOD COUNT 5.3 10^3/uL (4.0-10.0)
[2017-05-19 06:07] LABS: ANION GAP 11 MEQ/L (8-16); BLOOD UREA NITROGEN 41 MG/DL (7-18); CALCIUM LEVEL 9.3 MG/DL (8.8-10.2); CARBON DIOXIDE LEVEL 25 MEQ/L (21-32); CHLORIDE LEVEL 97 MEQ/L (98-107); CK-MB VALUE MASS 6.4 NG/ML (0.0-3.6); CPK CREATINE PHOSPHOKINASE 125 U/L (39-308); CREATININE FOR GFR 4.59 MG/DL (0.70-1.30); GLOMERULAR FILTRATION RATE 13.6 (>49); GLUCOSE, FASTING 286 MG/DL (80-110); MB/CK RELATIVE INDEX 5.12 (< OR =4); SODIUM LEVEL 133 MEQ/L (136-145); TROPONIN I 0.74 NG/ML (< 0.10)
[2017-05-19 06:22] LABS: LYMPH # 0.2 10^3/uL (1.5-4.5); PLT CLUMPS? POS FLAG; POS COUNT POS FLAG; POSITIVE DIFF POS FLAG
[2017-05-19 06:23] LABS: PLATELET COUNT, AUTOMATED 95 10^3/uL (150-450); PLATELET F 89
[2017-05-19] MEDS ORDERED: VANCOMYCIN HCL 1,000 MG, VIAL MATE ADAPTER 1 EACH in D5W 250 ML IV (07:45)
[2017-05-19] MEDS: POLYVINYL ALCOHOL OPHTH SOLN 15 ML(LIQUITEARS) OU ×2 (08:24→22:07)
[2017-05-19] MEDS: HumaLOG INSULIN (NovoLOG) PER UNIT SC ×3 (08:25→17:56)
[2017-05-19] MEDS: PANTOPRAZOLE 20 MG TAB PO (08:25)
[2017-05-19] MEDS: DOCUSATE SODIUM 100 MG CAP PO ×2 (08:25→22:06)
[2017-05-19] MEDS: MULTIVITAMINS/MINERALS THERAP 1 TAB PO (08:25)
[2017-05-19] MEDS: VITAMIN D 1,000 INTERNATIONAL UNITS TABLET PO (08:25)
[2017-05-19] MEDS: APIXABAN 2.5 MG TAB (ELIQUIS) PO ×2 (08:25→22:06)
[2017-05-19] MEDS: (RENVELA) SEVELAMER **CARBONate** 800 MG TAB PO ×3 (08:25→17:59)
[2017-05-19] MEDS: ASPIRIN 81 MG ENTERIC TAB PO (08:25)
[2017-05-19 08:45] LABS: FREE THYROXINE INDEX 1.9 % (1.4-3.8); T UPTAKE 38 % (33-40)
[2017-05-19] MEDS: methylPREDNISolone INJ 125 MG/2 ML VIAL (J2930) IV ×2 (11:11→22:05)
[2017-05-19 12:15] LABS: BEDSIDE GLUCOSE 187 MG/DL (80-115)
[2017-05-19 12:50] LABS: CPK CREATINE PHOSPHOKINASE 90 U/L (39-308); TROPONIN I 0.85 NG/ML (< 0.10)
[2017-05-19 12:51] LABS: CK-MB VALUE MASS 5.4 NG/ML (0.0-3.6)
[2017-05-19] MEDS: VANCOMYCIN HCL 500 MG in D5W MINI-BAG PLUS 100 ML IV (15:24)
[2017-05-19] MEDS: CHECK TO SEE IF PATIENT IS RECEIVING DIALYSIS TODAY AND REFER TO THE VANCOMYCIN ORDER XX (15:38)
[2017-05-19 17:24] LABS: BEDSIDE GLUCOSE 238 MG/DL (80-115)
[2017-05-19] MEDS: ISOSORBIDE MON. (IMDUR) 30 MG XR TAB PO (17:59)
[2017-05-19] MEDS: CINACALCET 30 MG TAB (SENSIPAR) PO (18:00)
[2017-05-19] MEDS: LEVEMIR (INSULIN DETEMIR) 1 UNITS/0.01ML SC (22:05)
[2017-05-19] MEDS: GABAPENTIN 100 MG CAP PO (22:05)
[2017-05-19] MEDS: FAMOTIDINE 20 MG TAB PO (22:06)
[2017-05-19] MEDS: traZODone 100 MG TAB PO (22:06)
[2017-05-19] MEDS: SENOKOT S TAB PO (22:06)
[2017-05-19] MEDS: CLOPIDOGREL 75 MG TAB PO (22:06)
[2017-05-19 22:26] LABS: BEDSIDE GLUCOSE 229 MG/DL (80-115)
[2017-05-20] MEDS: IPRATROPIUM 0.5MG/ALBUTEROL 2.5MG INH SOL UD 3ML (DUONEB)(J7620) INH ×3 (01:22→14:36)
[2017-05-20] MEDS: PIPERACILLIN/TAZOBACTAM SOD 2.25 GM in APPROPRIATE DILUENT 1 EA IV ×3 (05:06→21:09)
[2017-05-20] MEDS: SLF 3 ML SYR IV ×3 (05:06→21:10)
[2017-05-20 05:34] LABS: HEMATOCRIT 37.3 % (42.0-52.0); HEMOGLOBIN 11.9 g/dl (14.0-18.0); MEAN CORPUSCULAR HEMOGLOBIN 29.5 pg (27.0-33.0); MEAN CORPUSCULAR HGB CONC 31.9 g/dl (32.0-36.5); MEAN CORPUSCULAR VOLUME 92.6 fl (80.0-96.0); PLATELET COUNT, AUTOMATED 104 10^3/uL (150-450); RED BLOOD COUNT 4.03 10^6/uL (4.30-6.10); RED CELL DISTRIBUTION WIDTH 14.7 % (11.5-14.5); WHITE BLOOD COUNT 7.9 10^3/uL (4.0-10.0)
[2017-05-20 05:56] LABS: ANION GAP 9 MEQ/L (8-16); BLOOD UREA NITROGEN 68 MG/DL (7-18); CALCIUM LEVEL 8.7 MG/DL (8.8-10.2); CARBON DIOXIDE LEVEL 28 MEQ/L (21-32); CHLORIDE LEVEL 95 MEQ/L (98-107); CHOLESTEROL LEVEL 78 MG/DL (<200); CREATININE FOR GFR 5.93 MG/DL (0.70-1.30); GLOMERULAR FILTRATION RATE 10.1 (>49); GLUCOSE, FASTING 274 MG/DL (80-110); HDL CHOLESTEROL 50 MG/DL (>40); LDL CHOLESTEROL 14.6 MG/DL (<100); NON-HDL-C 28 MG/DL; SODIUM LEVEL 132 MEQ/L (136-145); TRIGLYCERIDES LEVEL 67 MG/DL (<150); VANCOMYCIN RANDOM 15.2 UG/ML
[2017-05-20 05:57] LABS: POTASSIUM SERUM 5.4 MEQ/L (3.5-5.1)
[2017-05-20] MEDS: methylPREDNISolone INJ 125 MG/2 ML VIAL (J2930) IV ×2 (08:53→21:09)
[2017-05-20] MEDS: (RENVELA) SEVELAMER **CARBONate** 800 MG TAB PO ×3 (08:53→20:23)
[2017-05-20] MEDS: HumaLOG INSULIN (NovoLOG) PER UNIT SC ×4 (08:53→21:00)
[2017-05-20] MEDS: PANTOPRAZOLE 20 MG TAB PO (10:08)
[2017-05-20] MEDS: APIXABAN 2.5 MG TAB (ELIQUIS) PO ×2 (10:08→20:25)
[2017-05-20] MEDS: VITAMIN D 1,000 INTERNATIONAL UNITS TABLET PO (10:08)
[2017-05-20] MEDS: ASPIRIN 81 MG ENTERIC TAB PO (10:08)
[2017-05-20] MEDS: METOPROLOL SUCC (TopROL XL) 50MG **XL** TAB PO (10:09)
[2017-05-20] MEDS: ROSUVASTATIN 10 MG TAB (CRESTOR) PO (10:09)
[2017-05-20] MEDS: MULTIVITAMINS/MINERALS THERAP 1 TAB PO (10:09)
[2017-05-20] MEDS: DOCUSATE SODIUM 100 MG CAP PO ×2 (10:09→20:24)
[2017-05-20] MEDS: POLYVINYL ALCOHOL OPHTH SOLN 15 ML(LIQUITEARS) OU ×2 (10:10→20:25)
[2017-05-20 10:17] LABS: TROPONIN I 0.54 NG/ML (< 0.10)
[2017-05-20 11:48] LABS: BEDSIDE GLUCOSE 312 MG/DL (80-115)
[2017-05-20 12:40] LABS: TROPONIN I 0.45 NG/ML (< 0.10)
[2017-05-20] MEDS: CHECK TO SEE IF PATIENT IS RECEIVING DIALYSIS TODAY AND REFER TO THE VANCOMYCIN ORDER XX (18:28)
[2017-05-20] MEDS: LEVEMIR (INSULIN DETEMIR) 1 UNITS/0.01ML SC (20:21)
[2017-05-20] MEDS: ACETAMINOPHEN TAB 650MG DOSE (2X325MG) PO (20:22)
[2017-05-20] MEDS: GABAPENTIN 100 MG CAP PO (20:23)
[2017-05-20] MEDS: CINACALCET 30 MG TAB (SENSIPAR) PO (20:23)
[2017-05-20] MEDS: traZODone 100 MG TAB PO (20:24)
[2017-05-20] MEDS: ISOSORBIDE MON. (IMDUR) 60 MG XR TAB PO (20:24)
[2017-05-20] MEDS: CLOPIDOGREL 75 MG TAB PO (20:24)
[2017-05-20] MEDS: FAMOTIDINE 20 MG TAB PO (20:25)
[2017-05-20] MEDS: SENOKOT S TAB PO (20:25)
[2017-05-20] MEDS: clonazePAM 0.5 MG TAB PO (21:08)
[2017-05-21] MEDS: IPRATROPIUM 0.5MG/ALBUTEROL 2.5MG INH SOL UD 3ML (DUONEB)(J7620) NEB (00:11)
[2017-05-21] MEDS: IPRATROPIUM 0.5MG/ALBUTEROL 2.5MG INH SOL UD 3ML (DUONEB)(J7620) INH ×5 (00:12→20:42)
[2017-05-21 01:21] LABS: BEDSIDE GLUCOSE 251 MG/DL (80-115)
[2017-05-21] MEDS: SLF 3 ML SYR IV ×3 (05:35→21:04)
[2017-05-21] MEDS: PIPERACILLIN/TAZOBACTAM SOD 2.25 GM in APPROPRIATE DILUENT 1 EA IV ×3 (05:35→21:02)
[2017-05-21 05:39] LABS: HEMATOCRIT 36.4 % (42.0-52.0); HEMOGLOBIN 11.2 g/dl (14.0-18.0); MEAN CORPUSCULAR HEMOGLOBIN 28.3 pg (27.0-33.0); MEAN CORPUSCULAR HGB CONC 30.8 g/dl (32.0-36.5); MEAN CORPUSCULAR VOLUME 91.9 fl (80.0-96.0); PLATELET COUNT, AUTOMATED 113 10^3/uL (150-450); RED BLOOD COUNT 3.96 10^6/uL (4.30-6.10); RED CELL DISTRIBUTION WIDTH 14.7 % (11.5-14.5); WHITE BLOOD COUNT 9.1 10^3/uL (4.0-10.0)
[2017-05-21 05:44] LABS: ANION GAP 10 MEQ/L (8-16); BLOOD UREA NITROGEN 45 MG/DL (7-18); CARBON DIOXIDE LEVEL 29 MEQ/L (21-32); CHLORIDE LEVEL 96 MEQ/L (98-107); CREATININE FOR GFR 4.44 MG/DL (0.70-1.30); GLOMERULAR FILTRATION RATE 14.2 (>49); GLUCOSE, FASTING 349 MG/DL (80-110); POTASSIUM SERUM 4.5 MEQ/L (3.5-5.1); SODIUM LEVEL 135 MEQ/L (136-145)
[2017-05-21] MEDS: POLYVINYL ALCOHOL OPHTH SOLN 15 ML(LIQUITEARS) OU ×2 (08:44→21:04)
[2017-05-21] MEDS: methylPREDNISolone INJ 125 MG/2 ML VIAL (J2930) IV ×2 (08:44→21:02)
[2017-05-21] MEDS: (RENVELA) SEVELAMER **CARBONate** 800 MG TAB PO ×3 (08:45→17:59)
[2017-05-21] MEDS: ROSUVASTATIN 10 MG TAB (CRESTOR) PO (08:45)
[2017-05-21] MEDS: HumaLOG INSULIN (NovoLOG) PER UNIT SC ×4 (08:45→21:00)
[2017-05-21] MEDS: ASPIRIN 81 MG ENTERIC TAB PO (08:45)
[2017-05-21] MEDS: MULTIVITAMINS/MINERALS THERAP 1 TAB PO (08:46)
[2017-05-21] MEDS: APIXABAN 2.5 MG TAB (ELIQUIS) PO ×2 (08:46→21:04)
[2017-05-21] MEDS: DOCUSATE SODIUM 100 MG CAP PO ×2 (08:46→21:03)
[2017-05-21] MEDS: METOPROLOL SUCC (TopROL XL) 50MG **XL** TAB PO (08:46)
[2017-05-21] MEDS: VITAMIN D 1,000 INTERNATIONAL UNITS TABLET PO (08:46)
[2017-05-21] MEDS: PANTOPRAZOLE 20 MG TAB PO (08:46)
[2017-05-21 12:06] LABS: BEDSIDE GLUCOSE 330 MG/DL (80-115)
[2017-05-21] MEDS: MOM 30ML SUSPENSION UDC PO (12:40)
[2017-05-21] MEDS: CHECK TO SEE IF PATIENT IS RECEIVING DIALYSIS TODAY AND REFER TO THE VANCOMYCIN ORDER XX (15:12)
[2017-05-21] MEDS: guaiFENesin SYRUP 200 MG/10 ML UDC PO (15:58)
[2017-05-21 17:59] LABS: BEDSIDE GLUCOSE 212 MG/DL (80-115)
[2017-05-21] MEDS: SIMETHICONE 80 MG CHEW TAB PO (17:59)
[2017-05-21] MEDS: ISOSORBIDE MON. (IMDUR) 60 MG XR TAB PO (17:59)
[2017-05-21] MEDS: CINACALCET 30 MG TAB (SENSIPAR) PO (17:59)
[2017-05-21] MEDS: LEVEMIR (INSULIN DETEMIR) 1 UNITS/0.01ML SC (21:03)
[2017-05-21] MEDS: GABAPENTIN 100 MG CAP PO (21:03)
[2017-05-21] MEDS: clonazePAM 0.5 MG TAB PO (21:03)
[2017-05-21] MEDS: SENOKOT S TAB PO (21:03)
[2017-05-21] MEDS: CLOPIDOGREL 75 MG TAB PO (21:03)
[2017-05-21] MEDS: ACETAMINOPHEN TAB 650MG DOSE (2X325MG) PO (21:03)
[2017-05-21] MEDS: traZODone 100 MG TAB PO (21:04)
[2017-05-21] MEDS: FAMOTIDINE 20 MG TAB PO (21:04)
[2017-05-21 21:20] LABS: BEDSIDE GLUCOSE 103 MG/DL (80-115)
[2017-05-22] MEDS: IPRATROPIUM 0.5MG/ALBUTEROL 2.5MG INH SOL UD 3ML (DUONEB)(J7620) INH ×2 (01:43→09:06)
[2017-05-22] MEDS: SIMETHICONE 80 MG CHEW TAB PO (04:43)
[2017-05-22 05:16] LABS: HEMATOCRIT 36.6 % (42.0-52.0); HEMOGLOBIN 11.7 g/dl (14.0-18.0); MEAN CORPUSCULAR HEMOGLOBIN 29.8 pg (27.0-33.0); MEAN CORPUSCULAR VOLUME 93.4 fl (80.0-96.0); RED BLOOD COUNT 3.92 10^6/uL (4.30-6.10); RED CELL DISTRIBUTION WIDTH 14.9 % (11.5-14.5); WHITE BLOOD COUNT 9.1 10^3/uL (4.0-10.0)
[2017-05-22 05:21] LABS: PLATELET COUNT, AUTOMATED 95 10^3/uL (150-450)
[2017-05-22 05:22] LABS: IMMATURE PLATELET FRACTION % 5.5 % (0.0-10.9)
[2017-05-22 05:33] LABS: ANION GAP 11 MEQ/L (8-16); CALCIUM LEVEL 8.1 MG/DL (8.8-10.2); CARBON DIOXIDE LEVEL 27 MEQ/L (21-32); CHLORIDE LEVEL 95 MEQ/L (98-107); CREATININE FOR GFR 5.68 MG/DL (0.70-1.30); GLOMERULAR FILTRATION RATE 10.7 (>49); GLUCOSE, FASTING 216 MG/DL (80-110); POTASSIUM SERUM 4.5 MEQ/L (3.5-5.1); SODIUM LEVEL 133 MEQ/L (136-145)
[2017-05-22 05:40] LABS: BLOOD UREA NITROGEN 72 MG/DL (7-18)
[2017-05-22] MEDS: PIPERACILLIN/TAZOBACTAM SOD 2.25 GM in APPROPRIATE DILUENT 1 EA IV (05:40)
[2017-05-22] MEDS: SLF 3 ML SYR IV (05:41)
[2017-05-22] MEDS: NITROGLYCERIN 0.4 MG SUBL TABLET SL (06:47)
[2017-05-22 08:16] LABS: CK-MB VALUE MASS 3.9 NG/ML (0.0-3.6); CPK CREATINE PHOSPHOKINASE 85 U/L (39-308); MB/CK RELATIVE INDEX 4.58 (< OR =4); TROPONIN I 0.36 NG/ML (< 0.10)
[2017-05-22] MEDS ORDERED: raNITIdine SYRUP 150 MG/10 ML UDC PO (09:00)
[2017-05-22] MEDS: HumaLOG INSULIN (NovoLOG) PER UNIT SC ×2 (09:08→11:40)
[2017-05-22] MEDS: DOCUSATE SODIUM 100 MG CAP PO (09:09)
[2017-05-22] MEDS: VITAMIN D 1,000 INTERNATIONAL UNITS TABLET PO (09:09)
[2017-05-22] MEDS: ROSUVASTATIN 10 MG TAB (CRESTOR) PO (09:09)
[2017-05-22] MEDS: methylPREDNISolone INJ 125 MG/2 ML VIAL (J2930) IV (09:09)
[2017-05-22] MEDS: APIXABAN 2.5 MG TAB (ELIQUIS) PO (09:09)
[2017-05-22] MEDS: ASPIRIN 81 MG ENTERIC TAB PO (09:09)
[2017-05-22] MEDS: MULTIVITAMINS/MINERALS THERAP 1 TAB PO (09:09)
[2017-05-22] MEDS: PANTOPRAZOLE 20 MG TAB PO (09:09)
[2017-05-22] MEDS: (RENVELA) SEVELAMER **CARBONate** 800 MG TAB PO ×2 (09:10→11:41)
[2017-05-22] MEDS: POLYVINYL ALCOHOL OPHTH SOLN 15 ML(LIQUITEARS) OU (09:10)
[2017-05-22] MEDS: METOPROLOL SUCC (TopROL XL) 50MG **XL** TAB PO (09:10)
[2017-05-22] MEDS: guaiFENesin SYRUP 200 MG/10 ML UDC PO (09:11)
[2017-05-22 11:32] LABS: BEDSIDE GLUCOSE 284 MG/DL (80-115)
== END 2017-05-22 12:39 | disposition short-term general hospital (02) | DRG 193 ==
LOC: M ED 22:37 → M ED INP 05-18 02:41 → M MS5PR 05-18 04:06 → M PCU 05-18 18:19
PROC: 5A1D70Z Performance of Urinary Filtration, Intermittent, Less than 6 Hours Per Day (ICD-10-PCS; principal; 2017-05-18)
DX: J18.9 Pneumonia, unspecified organism (principal); N18.6 End stage renal disease; I21.4 Non-ST elevation (NSTEMI) myocardial infarction; I50.42 Chronic combined systolic (congestive) and diastolic (congestive) heart failure; J44.1 Chronic obstructive pulmonary disease with (acute) exacerbation; J96.11 Chronic respiratory failure with hypoxia; N25.81 Secondary hyperparathyroidism of renal origin; I13.2 Hypertensive heart and chronic kidney disease with heart failure and with stage 5 chronic kidney disease, or end stage renal disease; Z66 Do not resuscitate; E87.5 Hyperkalemia; I48.0 Paroxysmal atrial fibrillation; E11.40 Type 2 diabetes mellitus with diabetic neuropathy, unspecified; E11.51 Type 2 diabetes mellitus with diabetic peripheral angiopathy without gangrene; Z99.2 Dependence on renal dialysis; Z79.4 Long term (current) use of insulin; Z79.82 Long term (current) use of aspirin; Z88.8 Allergy status to other drugs, medicaments and biological substances; Z91.041 Radiographic dye allergy status; Z99.81 Dependence on supplemental oxygen; Z89.512 Acquired absence of left leg below knee; Z89.611 Acquired absence of right leg above knee; Z95.828 Presence of other vascular implants and grafts; Z95.5 Presence of coronary angioplasty implant and graft; Z79.01 Long term (current) use of anticoagulants; Z79.02 Long term (current) use of antithrombotics/antiplatelets; Y95 Nosocomial condition

== ENCOUNTER → 2017-05-31 | Outpatient (REF) | LOC: SKLAB4 12:42 | DX: J84.9 Interstitial pulmonary disease, unspecified (principal); I51.7 Cardiomegaly ==

== ENCOUNTER → 2017-06-07 | Outpatient (REF) | payer MEDICARE, MEDICAID ==
[2017-06-07 14:44] LABS: HEMATOCRIT 33.7 % (42.0-52.0); HEMOGLOBIN 10.6 g/dl (14.0-18.0); MEAN CORPUSCULAR HEMOGLOBIN 29.9 pg (27.0-33.0); MEAN CORPUSCULAR HGB CONC 31.5 g/dl (32.0-36.5); MEAN CORPUSCULAR VOLUME 94.9 fl (80.0-96.0); RED BLOOD COUNT 3.55 10^6/uL (4.30-6.10); RED CELL DISTRIBUTION WIDTH 14.6 % (11.5-14.5); WHITE BLOOD COUNT 5.8 10^3/uL (4.0-10.0)
[2017-06-07 15:08] LABS: PLATELET COUNT, AUTOMATED 68 10^3/uL (150-450)
[2017-06-07 15:09] LABS: IMMATURE PLATELET FRACTION % 5.9 % (0.0-10.9)
== END ==
LOC: SKLAB4 13:56
DX: J18.9 Pneumonia, unspecified organism (principal)

== ENCOUNTER → 2017-06-07 | Outpatient (CLI) | payer MEDICARE, MEDICAID | LOC: M RAD 08:10 | DX: R06.02 Shortness of breath (principal); J18.9 Pneumonia, unspecified organism; Z87.01 Personal history of pneumonia (recurrent); R91.1 Solitary pulmonary nodule | CPT/HCPCS: 71250 ==

== ENCOUNTER 2017-06-08 16:45 | Inpatient (IN) | payer MEDICARE, MEDICAID ==
[2017-06-08 17:49] LABS: BASO % 0.2 % (0.0-1.0); EOS % 0.2 % (0.0-3.0); HEMATOCRIT 33.1 % (42.0-52.0); HEMOGLOBIN 10.6 g/dl (14.0-18.0); IMMATURE GRANULOCYTE % 0.4 % (0-0); LYMPH % 2.5 % (24.0-44.0); MEAN CORPUSCULAR HEMOGLOBIN 29.7 pg (27.0-33.0); MEAN CORPUSCULAR VOLUME 92.7 fl (80.0-96.0); MONO # 0.2 10^3/uL (0.0-0.8); MONO % 4.5 % (0.0-5.0); NEUTROPHILS # 4.7 10^3/uL (1.8-7.7); NEUTROPHILS % 92.2 % (36.0-66.0); RED BLOOD COUNT 3.57 10^6/uL (4.30-6.10); RED CELL DISTRIBUTION WIDTH 14.4 % (11.5-14.5); WHITE BLOOD COUNT 5.1 10^3/uL (4.0-10.0)
[2017-06-08 18:09] LABS: ALBUMIN 3.2 GM/DL (3.2-5.2); ALBUMIN/GLOBULIN RATIO 0.78 (1.00-1.93); ALKALINE PHOSPHATASE 297 U/L (45-117); ALT/SGPT 17 U/L (12-78); ANION GAP 7 MEQ/L (8-16); AST/SGOT 29 U/L (7-37); BILIRUBIN,DIRECT 0.1 MG/DL (0.0-0.2); BILIRUBIN,TOTAL 0.8 MG/DL (0.2-1.0); BLOOD UREA NITROGEN 21 MG/DL (7-18); CALCIUM LEVEL 8.8 MG/DL (8.8-10.2); CARBON DIOXIDE LEVEL 29 MEQ/L (21-32); CHLORIDE LEVEL 96 MEQ/L (98-107); CPK CREATINE PHOSPHOKINASE 161 U/L (39-308); CREATININE FOR GFR 3.52 MG/DL (0.70-1.30); GLOMERULAR FILTRATION RATE 18.5 (>49); GLUCOSE, FASTING 307 MG/DL (70-100); LIPASE 119 U/L (73-393); SODIUM LEVEL 132 MEQ/L (136-145); TOTAL PROTEIN 7.3 GM/DL (6.4-8.2); TROPONIN I 0.05 NG/ML (< 0.10)
[2017-06-08 18:14] LABS: CK-MB VALUE MASS 5.3 NG/ML (0.0-3.6); MB/CK RELATIVE INDEX 3.29 (< OR =4); NT-PRO BNP 23695 PG/ML (<125)
[2017-06-08 18:41] LABS: LYMPH # 0.1 10^3/uL (1.5-4.5); PLATELET COUNT, AUTOMATED 82 10^3/uL (150-450); POSITIVE DIFF POS FLAG
[2017-06-08 18:43] LABS: IMMATURE PLATELET FRACTION % 6.7 % (0.0-10.9)
[2017-06-08] MEDS ORDERED: FLEET ENEMA PR (22:00)
[2017-06-08] MEDS ORDERED: BISACODYL 10 MG SUPP PR (22:00)
[2017-06-08] MEDS ORDERED: SODIUM CHLORIDE NASAL 0.65% SPRAY BTL (OCEAN) (22:00)
[2017-06-08] MEDS ORDERED: POLYVINYL ALCOHOL OPHTH SOLN 15 ML(LIQUITEARS) OU (22:00)
[2017-06-08] MEDS: PIPERACILLIN/TAZOBACTAM SOD 2.25 GM in APPROPRIATE DILUENT 1 EA IV (23:58)
[2017-06-09] MEDS: METOPROLOL SUCC (TopROL XL) 100MG *XL* TAB PO (00:05)
[2017-06-09] MEDS: clonazePAM 0.5 MG TAB PO ×2 (01:25→23:15)
[2017-06-09 01:35] LABS: TROPONIN I 0.05 NG/ML (< 0.10)
[2017-06-09 01:37] LABS: CPK CREATINE PHOSPHOKINASE 128 U/L (39-308)
[2017-06-09] MEDS ORDERED: HEPARIN SOD (PORCINE) 5000 UNITS/ML VIAL SC (06:00)
[2017-06-09 07:31] LABS: BASO % 0.5 % (0.0-1.0); EOS % 0.7 % (0.0-3.0); HEMOGLOBIN 10.7 g/dl (14.0-18.0); LYMPH # 0.6 10^3/uL (1.5-4.5); MEAN CORPUSCULAR HEMOGLOBIN 29.5 pg (27.0-33.0); MEAN CORPUSCULAR HGB CONC 31.5 g/dl (32.0-36.5); MEAN CORPUSCULAR VOLUME 93.7 fl (80.0-96.0); MONO # 0.6 10^3/uL (0.0-0.8); MONO % 10.2 % (0.0-5.0); NEUTROPHILS # 4.6 10^3/uL (1.8-7.7); NEUTROPHILS % 78.6 % (36.0-66.0); RED BLOOD COUNT 3.63 10^6/uL (4.30-6.10); RED CELL DISTRIBUTION WIDTH 14.5 % (11.5-14.5); WHITE BLOOD COUNT 5.9 10^3/uL (4.0-10.0)
[2017-06-09 07:35] LABS: PLATELET COUNT, AUTOMATED 88 10^3/uL (150-450)
[2017-06-09] MEDS: SYMBICORT 160/4.5MCG INHALER 6GM INH ×2 (07:43→22:18)
[2017-06-09] MEDS: IPRATROPIUM 0.5MG/ALBUTEROL 2.5MG INH SOL UD 3ML (DUONEB)(J7620) INH ×3 (07:44→22:18)
[2017-06-09 07:55] LABS: ANION GAP 7 MEQ/L (8-16); BLOOD UREA NITROGEN 33 MG/DL (7-18); CALCIUM LEVEL 8.9 MG/DL (8.8-10.2); CARBON DIOXIDE LEVEL 31 MEQ/L (21-32); CHLORIDE LEVEL 98 MEQ/L (98-107); CPK CREATINE PHOSPHOKINASE 98 U/L (39-308); CREATININE FOR GFR 4.18 MG/DL (0.70-1.30); GLOMERULAR FILTRATION RATE 15.2 (>49); GLUCOSE, FASTING 125 MG/DL (70-100); MAGNESIUM LEVEL 2.4 MG/DL (1.8-2.4); POTASSIUM SERUM 4.3 MEQ/L (3.5-5.1); SODIUM LEVEL 136 MEQ/L (136-145); TROPONIN I 0.07 NG/ML (< 0.10)
[2017-06-09 07:57] LABS: CK-MB VALUE MASS 4.7 NG/ML (0.0-3.6); MB/CK RELATIVE INDEX 4.79 (< OR =4)
[2017-06-09] MEDS: POLYVINYL ALCOHOL OPHTH SOLN 15 ML(LIQUITEARS) OU ×2 (09:00→20:50)
[2017-06-09] MEDS: PANTOPRAZOLE 40MG INJ (PROTONIX) (C9113) IV (09:40)
[2017-06-09] MEDS: LEVEMIR (INSULIN DETEMIR) 1 UNITS/0.01ML SC (09:40)
[2017-06-09] MEDS: DOCUSATE SODIUM 100 MG CAP PO (09:41)
[2017-06-09] MEDS: CINACALCET 30 MG TAB (SENSIPAR) PO (09:41)
[2017-06-09] MEDS: LACTOBACILLUS ACIDOPHILUS CAP (BACID) PO ×2 (09:41→20:48)
[2017-06-09] MEDS: MULTIVITAMINS/MINERALS THERAP 1 TAB PO (09:41)
[2017-06-09] MEDS: PIPERACILLIN/TAZOBACTAM SOD 2.25 GM in APPROPRIATE DILUENT 1 EA IV ×2 (09:41→23:15)
[2017-06-09] MEDS: ASPIRIN 81 MG ENTERIC TAB PO (09:41)
[2017-06-09] MEDS: guaiFENesin ER 600 MG TAB PO ×3 (09:41→20:49)
[2017-06-09] MEDS: predniSONE 20 MG TAB PO (09:42)
[2017-06-09] MEDS: SODIUM CHLORIDE 0.9% NASAL GEL 15MG (AYR) ×2 (09:42→20:50)
[2017-06-09] MEDS: VITAMIN D 1,000 INTERNATIONAL UNITS TABLET PO (09:42)
[2017-06-09] MEDS: (RENVELA) SEVELAMER **CARBONate** 800 MG TAB PO ×3 (09:42→18:46)
[2017-06-09] MEDS: APIXABAN 2.5 MG TAB (ELIQUIS) PO ×3 (09:42→20:49)
[2017-06-09 09:43] LABS: C REACTIVE PROTEIN QUANTITATIV 1.66 MG/DL (0.00-0.30)
[2017-06-09] MEDS ORDERED: E-Z-PAQUE 96% w/w SUSP 176GM BTL As Ordered (11:09)
[2017-06-09] MEDS: HumaLOG INSULIN (NovoLOG) PER UNIT SC (11:30)
[2017-06-09] MEDS ORDERED: GLUCOSE 4 GM CHEW TABLET PO (12:45)
[2017-06-09] MEDS ORDERED: GLUCAGON FOR INJ 1 MG VIAL (J1610) SC (12:45)
[2017-06-09 12:48] LABS: CK-MB VALUE MASS 5.1 NG/ML (0.0-3.6); CPK CREATINE PHOSPHOKINASE 102 U/L (39-308); TROPONIN I 0.08 NG/ML (< 0.10)
[2017-06-09] MEDS: DEXTROSE 50% 50 ML SYRINGE IV (14:44)
[2017-06-09 15:19] LABS: BEDSIDE GLUCOSE 76 MG/DL (80-115)
[2017-06-09 15:19] LABS: BEDSIDE GLUCOSE 46 MG/DL (80-115)
[2017-06-09] MEDS ORDERED: D5W 1,000 ML IV (17:00)
[2017-06-09 17:35] LABS: BEDSIDE GLUCOSE 103 MG/DL (80-115)
[2017-06-09] MEDS: GABAPENTIN 100 MG CAP PO ×2 (20:48)
[2017-06-09] MEDS: SENOKOT S TAB PO ×2 (20:48)
[2017-06-09] MEDS: ISOSORBIDE DIN. (ISORDIL) 30 MG TAB PO (20:48)
[2017-06-09] MEDS: traZODone 100 MG TAB PO (20:48)
[2017-06-09] MEDS: CLOPIDOGREL 75 MG TAB PO ×2 (20:49)
[2017-06-09] MEDS: SIMVASTATIN 40 MG TAB PO (20:49)
[2017-06-10 00:22] LABS: BEDSIDE GLUCOSE 216 MG/DL (80-115)
[2017-06-10] MEDS: IPRATROPIUM 0.5MG/ALBUTEROL 2.5MG INH SOL UD 3ML (DUONEB)(J7620) INH ×4 (01:57→20:00)
[2017-06-10 06:12] LABS: BASO % 0.4 % (0.0-1.0); EOS % 0.2 % (0.0-3.0); HEMATOCRIT 32.3 % (42.0-52.0); HEMOGLOBIN 10.3 g/dl (14.0-18.0); IMMATURE GRANULOCYTE % 0.2 % (0-0); LYMPH # 0.3 10^3/uL (1.5-4.5); LYMPH % 6.3 % (24.0-44.0); MEAN CORPUSCULAR HEMOGLOBIN 29.5 pg (27.0-33.0); MEAN CORPUSCULAR HGB CONC 31.9 g/dl (32.0-36.5); MEAN CORPUSCULAR VOLUME 92.6 fl (80.0-96.0); MONO # 0.4 10^3/uL (0.0-0.8); MONO % 8.5 % (0.0-5.0); NEUTROPHILS # 4.2 10^3/uL (1.8-7.7); NEUTROPHILS % 84.4 % (36.0-66.0); PLATELET COUNT, AUTOMATED 89 10^3/uL (150-450); RED BLOOD COUNT 3.49 10^6/uL (4.30-6.10); RED CELL DISTRIBUTION WIDTH 14.5 % (11.5-14.5); WHITE BLOOD COUNT 4.9 10^3/uL (4.0-10.0)
[2017-06-10 06:12] LABS: BEDSIDE GLUCOSE 195 MG/DL (80-115)
[2017-06-10 06:13] LABS: IMMATURE PLATELET FRACTION % 3.6 % (0.0-10.9)
[2017-06-10] MEDS: DOCUSATE SODIUM 100 MG CAP PO (06:18)
[2017-06-10] MEDS: guaiFENesin ER 600 MG TAB PO ×2 (06:18→21:56)
[2017-06-10] MEDS: ASPIRIN 81 MG ENTERIC TAB PO (06:18)
[2017-06-10] MEDS: VITAMIN D 1,000 INTERNATIONAL UNITS TABLET PO (06:18)
[2017-06-10] MEDS: CINACALCET 30 MG TAB (SENSIPAR) PO ×2 (06:18→06:19)
[2017-06-10] MEDS: APIXABAN 2.5 MG TAB (ELIQUIS) PO ×2 (06:18→21:57)
[2017-06-10] MEDS: predniSONE 20 MG TAB PO (06:18)
[2017-06-10] MEDS: LACTOBACILLUS ACIDOPHILUS CAP (BACID) PO ×2 (06:19→21:57)
[2017-06-10 06:25] LABS: ANION GAP 7 MEQ/L (8-16); BLOOD UREA NITROGEN 44 MG/DL (7-18); CALCIUM LEVEL 8.5 MG/DL (8.8-10.2); CARBON DIOXIDE LEVEL 30 MEQ/L (21-32); CHLORIDE LEVEL 95 MEQ/L (98-107); CREATININE FOR GFR 5.06 MG/DL (0.70-1.30); GLOMERULAR FILTRATION RATE 12.2 (>49); GLUCOSE, FASTING 183 MG/DL (70-100); POTASSIUM SERUM 4.5 MEQ/L (3.5-5.1); SODIUM LEVEL 132 MEQ/L (136-145)
[2017-06-10] MEDS: (RENVELA) SEVELAMER **CARBONate** 800 MG TAB PO ×3 (06:56→17:18)
[2017-06-10] MEDS: SYMBICORT 160/4.5MCG INHALER 6GM INH ×2 (07:43→21:20)
[2017-06-10 08:20] LABS: MAGNESIUM LEVEL 2.4 MG/DL (1.8-2.4)
[2017-06-10] MEDS: POLYVINYL ALCOHOL OPHTH SOLN 15 ML(LIQUITEARS) OU ×2 (09:00→23:17)
[2017-06-10] MEDS ORDERED: LEVEMIR (INSULIN DETEMIR) 1 UNITS/0.01ML SC (09:00)
[2017-06-10 11:55] LABS: C REACTIVE PROTEIN QUANTITATIV 1.05 MG/DL (0.00-0.30)
[2017-06-10 13:12] LABS: BEDSIDE GLUCOSE 199 MG/DL (80-115)
[2017-06-10] MEDS: PANTOPRAZOLE 40MG INJ (PROTONIX) (C9113) IV (13:25)
[2017-06-10] MEDS: SODIUM CHLORIDE 0.9% NASAL GEL 15MG (AYR) ×2 (13:25→21:00)
[2017-06-10] MEDS: HumaLOG INSULIN (NovoLOG) PER UNIT SC (13:26)
[2017-06-10] MEDS: NITROGLYCERIN 0.4 MG SUBL TABLET SL (14:40)
[2017-06-10 16:15] LABS: CPK CREATINE PHOSPHOKINASE 55 U/L (39-308); TROPONIN I 0.03 NG/ML (< 0.10)
[2017-06-10 16:16] LABS: CK-MB VALUE MASS 4.1 NG/ML (0.0-3.6); MB/CK RELATIVE INDEX 7.45 (< OR =4)
[2017-06-10 17:14] LABS: BEDSIDE GLUCOSE 199 MG/DL (80-115)
[2017-06-10] MEDS: CLOPIDOGREL 75 MG TAB PO (21:56)
[2017-06-10] MEDS: GABAPENTIN 100 MG CAP PO (21:57)
[2017-06-10] MEDS: traZODone 100 MG TAB PO (21:57)
[2017-06-10] MEDS: SENOKOT S TAB PO (21:57)
[2017-06-10] MEDS: ISOSORBIDE DIN. (ISORDIL) 30 MG TAB PO (21:57)
[2017-06-10] MEDS: SIMVASTATIN 40 MG TAB PO (21:58)
[2017-06-10] MEDS: SLF 3 ML SYR IV (21:58)
[2017-06-10 21:59] LABS: BEDSIDE GLUCOSE 298 MG/DL (80-115)
[2017-06-10] MEDS: clonazePAM 0.5 MG TAB PO (23:17)
[2017-06-11] MEDS: IPRATROPIUM 0.5MG/ALBUTEROL 2.5MG INH SOL UD 3ML (DUONEB)(J7620) INH ×5 (01:22→20:00)
[2017-06-11 03:42] LABS: BASO % 0.4 % (0.0-1.0); EOS # 0.1 10^3/uL (0.0-0.50); EOS % 1.1 % (0.0-3.0); HEMATOCRIT 33.3 % (42.0-52.0); HEMOGLOBIN 10.5 g/dl (14.0-18.0); IMMATURE GRANULOCYTE % 0.2 % (0-0); LYMPH # 0.5 10^3/uL (1.5-4.5); LYMPH % 8.9 % (24.0-44.0); MEAN CORPUSCULAR HEMOGLOBIN 29.7 pg (27.0-33.0); MEAN CORPUSCULAR HGB CONC 31.5 g/dl (32.0-36.5); MEAN CORPUSCULAR VOLUME 94.1 fl (80.0-96.0); MONO # 0.5 10^3/uL (0.0-0.8); NEUTROPHILS # 4.2 10^3/uL (1.8-7.7); NEUTROPHILS % 79.4 % (36.0-66.0); RED BLOOD COUNT 3.54 10^6/uL (4.30-6.10); RED CELL DISTRIBUTION WIDTH 14.1 % (11.5-14.5); WHITE BLOOD COUNT 5.3 10^3/uL (4.0-10.0)
[2017-06-11 03:57] LABS: ANION GAP 8 MEQ/L (8-16); BLOOD UREA NITROGEN 28 MG/DL (7-18); C REACTIVE PROTEIN QUANTITATIV 0.81 MG/DL (0.00-0.30); CALCIUM LEVEL 8.5 MG/DL (8.8-10.2); CARBON DIOXIDE LEVEL 30 MEQ/L (21-32); CHLORIDE LEVEL 97 MEQ/L (98-107); CREATININE FOR GFR 3.59 MG/DL (0.70-1.30); GLOMERULAR FILTRATION RATE 18.1 (>49); GLUCOSE, FASTING 247 MG/DL (70-100); PLATELET COUNT, AUTOMATED 85 10^3/uL (150-450); POTASSIUM SERUM 4.4 MEQ/L (3.5-5.1); SODIUM LEVEL 135 MEQ/L (136-145)
[2017-06-11] MEDS: SLF 3 ML SYR IV ×3 (06:00→21:17)
[2017-06-11] MEDS: SYMBICORT 160/4.5MCG INHALER 6GM INH ×2 (07:07→21:46)
[2017-06-11] MEDS: SODIUM CHLORIDE 0.9% NASAL GEL 15MG (AYR) ×3 (09:00→21:17)
[2017-06-11] MEDS: guaiFENesin ER 600 MG TAB PO ×2 (09:03→21:15)
[2017-06-11] MEDS: APIXABAN 2.5 MG TAB (ELIQUIS) PO ×2 (09:03→21:16)
[2017-06-11] MEDS: PANTOPRAZOLE 40MG INJ (PROTONIX) (C9113) IV (09:03)
[2017-06-11] MEDS: (RENVELA) SEVELAMER **CARBONate** 800 MG TAB PO ×3 (09:03→17:26)
[2017-06-11] MEDS: LACTOBACILLUS ACIDOPHILUS CAP (BACID) PO ×2 (09:03→21:15)
[2017-06-11] MEDS: DOCUSATE SODIUM 100 MG CAP PO (09:03)
[2017-06-11] MEDS: predniSONE 20 MG TAB PO (09:03)
[2017-06-11] MEDS: LEVEMIR (INSULIN DETEMIR) 1 UNITS/0.01ML SC (09:04)
[2017-06-11] MEDS: VITAMIN D 1,000 INTERNATIONAL UNITS TABLET PO (09:04)
[2017-06-11] MEDS: CINACALCET 30 MG TAB (SENSIPAR) PO ×2 (09:04)
[2017-06-11] MEDS: ASPIRIN 81 MG ENTERIC TAB PO (09:04)
[2017-06-11] MEDS: POLYVINYL ALCOHOL OPHTH SOLN 15 ML(LIQUITEARS) OU ×2 (09:05→21:17)
[2017-06-11] MEDS: HumaLOG INSULIN (NovoLOG) PER UNIT SC (11:51)
[2017-06-11 11:54] LABS: BEDSIDE GLUCOSE 229 MG/DL (80-115)
[2017-06-11] MEDS: ACETAMINOPHEN TAB 650MG DOSE (2X325MG) PO (11:56)
[2017-06-11] MEDS: MOM 30ML SUSPENSION UDC PO (14:37)
[2017-06-11] MEDS: NYSTATIN 500,000 U/5 ML SUSP UDC PO ×3 (14:37→21:16)
[2017-06-11] MEDS: PIPERACILLIN/TAZOBACTAM SOD 2.25 GM in APPROPRIATE DILUENT 1 EA IV (16:46)
[2017-06-11 16:58] LABS: BEDSIDE GLUCOSE 221 MG/DL (80-115)
[2017-06-11] MEDS: SENOKOT S TAB PO (21:14)
[2017-06-11] MEDS: CLOPIDOGREL 75 MG TAB PO (21:15)
[2017-06-11] MEDS: GABAPENTIN 100 MG CAP PO (21:15)
[2017-06-11] MEDS: clonazePAM 0.5 MG TAB PO (21:15)
[2017-06-11] MEDS: traZODone 100 MG TAB PO (21:15)
[2017-06-11] MEDS: SIMVASTATIN 40 MG TAB PO (21:16)
[2017-06-11] MEDS: ISOSORBIDE DIN. (ISORDIL) 30 MG TAB PO (21:16)
[2017-06-11 21:41] LABS: BEDSIDE GLUCOSE 266 MG/DL (80-115)
[2017-06-12] MEDS: IPRATROPIUM 0.5MG/ALBUTEROL 2.5MG INH SOL UD 3ML (DUONEB)(J7620) INH ×7 (00:08→23:18)
[2017-06-12] MEDS: PIPERACILLIN/TAZOBACTAM SOD 2.25 GM in APPROPRIATE DILUENT 1 EA IV ×3 (04:00→20:37)
[2017-06-12] MEDS: SLF 3 ML SYR IV ×4 (05:02→20:40)
[2017-06-12 05:26] LABS: BASO % 0.5 % (0.0-1.0); EOS # 0.1 10^3/uL (0.0-0.50); EOS % 1.4 % (0.0-3.0); HEMATOCRIT 35.3 % (42.0-52.0); HEMOGLOBIN 11.1 g/dl (14.0-18.0); IMMATURE GRANULOCYTE % 0.5 % (0-0); LYMPH # 0.4 10^3/uL (1.5-4.5); LYMPH % 7.1 % (24.0-44.0); MEAN CORPUSCULAR HEMOGLOBIN 29.4 pg (27.0-33.0); MEAN CORPUSCULAR HGB CONC 31.4 g/dl (32.0-36.5); MEAN CORPUSCULAR VOLUME 93.6 fl (80.0-96.0); MONO # 0.5 10^3/uL (0.0-0.8); MONO % 8.9 % (0.0-5.0); NEUTROPHILS # 4.5 10^3/uL (1.8-7.7); NEUTROPHILS % 81.6 % (36.0-66.0); RED BLOOD COUNT 3.77 10^6/uL (4.30-6.10); RED CELL DISTRIBUTION WIDTH 14.1 % (11.5-14.5); WHITE BLOOD COUNT 5.5 10^3/uL (4.0-10.0)
[2017-06-12 05:34] LABS: PLATELET COUNT, AUTOMATED 89 10^3/uL (150-450)
[2017-06-12 05:35] LABS: IMMATURE PLATELET FRACTION % 3.7 % (0.0-10.9)
[2017-06-12 05:41] LABS: ANION GAP 7 MEQ/L (8-16); BLOOD UREA NITROGEN 42 MG/DL (7-18); C REACTIVE PROTEIN QUANTITATIV 0.63 MG/DL (0.00-0.30); CALCIUM LEVEL 8.2 MG/DL (8.8-10.2); CARBON DIOXIDE LEVEL 28 MEQ/L (21-32); CHLORIDE LEVEL 96 MEQ/L (98-107); CREATININE FOR GFR 4.42 MG/DL (0.70-1.30); GLOMERULAR FILTRATION RATE 14.2 (>49); GLUCOSE, FASTING 230 MG/DL (70-100); POTASSIUM SERUM 4.9 MEQ/L (3.5-5.1); SODIUM LEVEL 131 MEQ/L (136-145)
[2017-06-12] MEDS: SYMBICORT 160/4.5MCG INHALER 6GM INH ×2 (08:04→21:33)
[2017-06-12 08:48] LABS: MAGNESIUM LEVEL 2.4 MG/DL (1.8-2.4)
[2017-06-12] MEDS: PANTOPRAZOLE 40MG INJ (PROTONIX) (C9113) IV (09:04)
[2017-06-12] MEDS: VITAMIN D 1,000 INTERNATIONAL UNITS TABLET PO (09:06)
[2017-06-12] MEDS: (RENVELA) SEVELAMER **CARBONate** 800 MG TAB PO ×3 (09:07→17:08)
[2017-06-12] MEDS: CINACALCET 30 MG TAB (SENSIPAR) PO (09:07)
[2017-06-12] MEDS: ASPIRIN 81 MG ENTERIC TAB PO (09:07)
[2017-06-12] MEDS: predniSONE 20 MG TAB PO (09:08)
[2017-06-12] MEDS: LACTOBACILLUS ACIDOPHILUS CAP (BACID) PO ×2 (09:08→20:38)
[2017-06-12] MEDS: guaiFENesin ER 600 MG TAB PO ×2 (09:09→20:38)
[2017-06-12] MEDS: DOCUSATE SODIUM 100 MG CAP PO (09:09)
[2017-06-12] MEDS: APIXABAN 2.5 MG TAB (ELIQUIS) PO ×2 (09:09→20:38)
[2017-06-12] MEDS: NYSTATIN 500,000 U/5 ML SUSP UDC PO ×4 (09:11→20:38)
[2017-06-12] MEDS: LEVEMIR (INSULIN DETEMIR) 1 UNITS/0.01ML SC (09:14)
[2017-06-12] MEDS: POLYVINYL ALCOHOL OPHTH SOLN 15 ML(LIQUITEARS) OU ×2 (09:16→20:40)
[2017-06-12] MEDS: SODIUM CHLORIDE 0.9% NASAL GEL 15MG (AYR) ×2 (09:17→20:40)
[2017-06-12 15:34] LABS: BEDSIDE GLUCOSE 176 MG/DL (80-115)
[2017-06-12] MEDS: HumaLOG INSULIN (NovoLOG) PER UNIT SC (15:42)
[2017-06-12] MEDS: NITROGLYCERIN 0.4 MG SUBL TABLET SL ×2 (16:18→16:29)
[2017-06-12] MEDS: SIMETHICONE 80 MG CHEW TAB PO (16:28)
[2017-06-12] MEDS: ACETAMINOPHEN TAB 650MG DOSE (2X325MG) PO (17:08)
[2017-06-12 17:10] LABS: BEDSIDE GLUCOSE 222 MG/DL (80-115)
[2017-06-12] MEDS: ONDANSETRON 4MG/2ML VIAL (J2405) IV (17:48)
[2017-06-12] MEDS: SIMVASTATIN 40 MG TAB PO (20:37)
[2017-06-12] MEDS: DALIRESP 500 MCG PO (20:37)
[2017-06-12] MEDS: GABAPENTIN 100 MG CAP PO (20:37)
[2017-06-12] MEDS: SENOKOT S TAB PO (20:38)
[2017-06-12] MEDS: ISOSORBIDE DIN. (ISORDIL) 30 MG TAB PO (20:39)
[2017-06-12] MEDS: CLOPIDOGREL 75 MG TAB PO (20:39)
[2017-06-12] MEDS: traZODone 100 MG TAB PO (20:40)
[2017-06-12] MEDS: clonazePAM 0.5 MG TAB PO (20:52)
[2017-06-12 22:48] LABS: BEDSIDE GLUCOSE 142 MG/DL (80-115)
[2017-06-13] MEDS: IPRATROPIUM 0.5MG/ALBUTEROL 2.5MG INH SOL UD 3ML (DUONEB)(J7620) INH ×6 (03:41→23:41)
[2017-06-13] MEDS: SLF 3 ML SYR IV ×3 (03:42→20:54)
[2017-06-13] MEDS: PIPERACILLIN/TAZOBACTAM SOD 2.25 GM in APPROPRIATE DILUENT 1 EA IV ×2 (03:42→04:00)
[2017-06-13 06:20] LABS: BASO % 0.5 % (0.0-1.0); EOS # 0.1 10^3/uL (0.0-0.50); EOS % 2.5 % (0.0-3.0); HEMATOCRIT 33.3 % (42.0-52.0); HEMOGLOBIN 10.4 g/dl (14.0-18.0); IMMATURE GRANULOCYTE % 0.4 % (0-0); LYMPH # 0.4 10^3/uL (1.5-4.5); LYMPH % 7.9 % (24.0-44.0); MEAN CORPUSCULAR HEMOGLOBIN 29.1 pg (27.0-33.0); MEAN CORPUSCULAR HGB CONC 31.2 g/dl (32.0-36.5); MONO # 0.5 10^3/uL (0.0-0.8); MONO % 9.2 % (0.0-5.0); NEUTROPHILS # 4.4 10^3/uL (1.8-7.7); NEUTROPHILS % 79.5 % (36.0-66.0); PLATELET COUNT, AUTOMATED 103 10^3/uL (150-450); RED BLOOD COUNT 3.58 10^6/uL (4.30-6.10); RED CELL DISTRIBUTION WIDTH 14.1 % (11.5-14.5); WHITE BLOOD COUNT 5.6 10^3/uL (4.0-10.0)
[2017-06-13 06:35] LABS: ANION GAP 6 MEQ/L (8-16); BLOOD UREA NITROGEN 24 MG/DL (7-18); C REACTIVE PROTEIN QUANTITATIV 0.52 MG/DL (0.00-0.30); CALCIUM LEVEL 8.2 MG/DL (8.8-10.2); CARBON DIOXIDE LEVEL 33 MEQ/L (21-32); CHLORIDE LEVEL 99 MEQ/L (98-107); CREATININE FOR GFR 3.18 MG/DL (0.70-1.30); GLOMERULAR FILTRATION RATE 20.8 (>49); GLUCOSE, FASTING 64 MG/DL (70-100); POTASSIUM SERUM 4.2 MEQ/L (3.5-5.1); SODIUM LEVEL 138 MEQ/L (136-145)
[2017-06-13] MEDS: SYMBICORT 160/4.5MCG INHALER 6GM INH ×2 (07:18→20:21)
[2017-06-13] MEDS: NYSTATIN 500,000 U/5 ML SUSP UDC PO ×4 (08:59→20:53)
[2017-06-13] MEDS: LEVEMIR (INSULIN DETEMIR) 1 UNITS/0.01ML SC ×2 (09:00→09:05)
[2017-06-13] MEDS: LACTOBACILLUS ACIDOPHILUS CAP (BACID) PO ×3 (09:00→17:28)
[2017-06-13] MEDS: PANTOPRAZOLE 40MG INJ (PROTONIX) (C9113) IV (09:00)
[2017-06-13] MEDS: guaiFENesin ER 600 MG TAB PO ×2 (09:00→20:52)
[2017-06-13] MEDS: CINACALCET 30 MG TAB (SENSIPAR) PO (09:00)
[2017-06-13] MEDS: (RENVELA) SEVELAMER **CARBONate** 800 MG TAB PO ×3 (09:00→17:28)
[2017-06-13] MEDS: DOCUSATE SODIUM 100 MG CAP PO (09:00)
[2017-06-13] MEDS: APIXABAN 2.5 MG TAB (ELIQUIS) PO ×2 (09:00→20:53)
[2017-06-13] MEDS: predniSONE 20 MG TAB PO (09:00)
[2017-06-13] MEDS: ASPIRIN 81 MG ENTERIC TAB PO (09:01)
[2017-06-13] MEDS: VITAMIN D 1,000 INTERNATIONAL UNITS TABLET PO (09:04)
[2017-06-13] MEDS: POLYVINYL ALCOHOL OPHTH SOLN 15 ML(LIQUITEARS) OU ×2 (09:05→20:54)
[2017-06-13] MEDS: SODIUM CHLORIDE 0.9% NASAL GEL 15MG (AYR) ×2 (09:06→20:54)
[2017-06-13 09:22] LABS: BEDSIDE GLUCOSE 100 MG/DL (80-115)
[2017-06-13 11:49] LABS: BEDSIDE GLUCOSE 133 MG/DL (80-115)
[2017-06-13] MEDS: CLINDAMYCIN 150 MG CAP PO ×3 (11:59→20:54)
[2017-06-13] MEDS: HumaLOG INSULIN (NovoLOG) PER UNIT SC (12:00)
[2017-06-13] MEDS: SIMETHICONE 80 MG CHEW TAB PO (16:31)
[2017-06-13 17:16] LABS: BEDSIDE GLUCOSE 130 MG/DL (80-115)
[2017-06-13] MEDS: ACETAMINOPHEN TAB 650MG DOSE (2X325MG) PO (17:33)
[2017-06-13] MEDS: CALCIUM CARBONATE 500 MG CHEW U/D PO (18:43)
[2017-06-13 20:39] LABS: CK-MB VALUE MASS 5.1 NG/ML (0.0-3.6); CPK CREATINE PHOSPHOKINASE 66 U/L (39-308); MB/CK RELATIVE INDEX 7.72 (< OR =4); TROPONIN I 0.26 NG/ML (< 0.10)
[2017-06-13] MEDS: PANTOPRAZOLE 40MG TAB (PROTONIX) PO (20:53)
[2017-06-13] MEDS: traZODone 100 MG TAB PO (20:53)
[2017-06-13] MEDS: CLOPIDOGREL 75 MG TAB PO (20:53)
[2017-06-13] MEDS: ISOSORBIDE DIN. (ISORDIL) 30 MG TAB PO (20:53)
[2017-06-13] MEDS: SENOKOT S TAB PO (20:53)
[2017-06-13] MEDS: SIMVASTATIN 40 MG TAB PO (20:53)
[2017-06-13] MEDS: GABAPENTIN 100 MG CAP PO (20:53)
[2017-06-13] MEDS: DALIRESP 500 MCG PO (20:54)
[2017-06-13] MEDS: clonazePAM 0.5 MG TAB PO (20:55)
[2017-06-13] MEDS: GI COCKTAIL 50ML BTL(HYOSCYAMINE/MAALOX/LIDOCAINE VISCOUS)(1:3:1) PO (21:23)
[2017-06-13] MEDS: NITROGLYCERIN 0.4 MG SUBL TABLET SL (22:01)
[2017-06-13] MEDS ORDERED: IPRATROPIUM 0.5MG/ALBUTEROL 2.5MG INH SOL UD 3ML (DUONEB)(J7620) NEB (22:15)
[2017-06-13] MEDS ORDERED: MORPHINE 2 MG/ML 1ML SYRINGE (J2270) IV (22:15)
[2017-06-13] MEDS ORDERED: MORPHINE 10MG/0.5ML ORAL CONCENTRATE SOLUTION U/D PO (22:15)
[2017-06-14] MEDS: MORPHINE 2 MG/ML 1ML SYRINGE (J2270) IV
[2017-06-14 00:45] LABS: BEDSIDE GLUCOSE 229 MG/DL (80-115)
[2017-06-14 02:25] LABS: CK-MB VALUE MASS 3.9 NG/ML (0.0-3.6); CPK CREATINE PHOSPHOKINASE 53 U/L (39-308); MB/CK RELATIVE INDEX 7.35 (< OR =4); TROPONIN I 0.21 NG/ML (< 0.10)
[2017-06-14] MEDS: IPRATROPIUM 0.5MG/ALBUTEROL 2.5MG INH SOL UD 3ML (DUONEB)(J7620) INH ×5 (02:57→19:29)
[2017-06-14 05:58] LABS: BASO % 0.6 % (0.0-1.0); EOS # 0.1 10^3/uL (0.0-0.50); EOS % 2.2 % (0.0-3.0); HEMOGLOBIN 10.7 g/dl (14.0-18.0); IMMATURE GRANULOCYTE % 0.2 % (0-0); LYMPH # 0.4 10^3/uL (1.5-4.5); LYMPH % 7.7 % (24.0-44.0); MEAN CORPUSCULAR HEMOGLOBIN 29.3 pg (27.0-33.0); MEAN CORPUSCULAR HGB CONC 31.5 g/dl (32.0-36.5); MEAN CORPUSCULAR VOLUME 93.2 fl (80.0-96.0); MONO # 0.4 10^3/uL (0.0-0.8); MONO % 8.5 % (0.0-5.0); NEUTROPHILS % 80.8 % (36.0-66.0); PLATELET COUNT, AUTOMATED 104 10^3/uL (150-450); RED BLOOD COUNT 3.65 10^6/uL (4.30-6.10); RED CELL DISTRIBUTION WIDTH 14.2 % (11.5-14.5); WHITE BLOOD COUNT 4.9 10^3/uL (4.0-10.0)
[2017-06-14] MEDS: SLF 3 ML SYR IV ×3 (06:00→21:11)
[2017-06-14 06:17] LABS: ANION GAP 5 MEQ/L (8-16); BLOOD UREA NITROGEN 21 MG/DL (7-18); C REACTIVE PROTEIN QUANTITATIV 0.96 MG/DL (0.00-0.30); CALCIUM LEVEL 8.7 MG/DL (8.8-10.2); CARBON DIOXIDE LEVEL 30 MEQ/L (21-32); CHLORIDE LEVEL 101 MEQ/L (98-107); CREATININE FOR GFR 2.85 MG/DL (0.70-1.30); GLOMERULAR FILTRATION RATE 23.6 (>49); GLUCOSE, FASTING 191 MG/DL (70-100); POTASSIUM SERUM 4.3 MEQ/L (3.5-5.1); SODIUM LEVEL 136 MEQ/L (136-145)
[2017-06-14] MEDS: SYMBICORT 160/4.5MCG INHALER 6GM INH ×2 (08:29→21:00)
[2017-06-14] MEDS: LEVEMIR (INSULIN DETEMIR) 1 UNITS/0.01ML SC (08:32)
[2017-06-14] MEDS: APIXABAN 2.5 MG TAB (ELIQUIS) PO ×2 (08:33→21:08)
[2017-06-14] MEDS: CINACALCET 30 MG TAB (SENSIPAR) PO (08:33)
[2017-06-14] MEDS: PANTOPRAZOLE 40MG TAB (PROTONIX) PO ×2 (08:33→21:09)
[2017-06-14] MEDS: guaiFENesin ER 600 MG TAB PO ×2 (08:33→21:09)
[2017-06-14] MEDS: (RENVELA) SEVELAMER **CARBONate** 800 MG TAB PO ×3 (08:33→17:11)
[2017-06-14] MEDS: DOCUSATE SODIUM 100 MG CAP PO (08:33)
[2017-06-14] MEDS: VITAMIN D 1,000 INTERNATIONAL UNITS TABLET PO (08:34)
[2017-06-14] MEDS: LACTOBACILLUS ACIDOPHILUS CAP (BACID) PO ×3 (08:34→17:11)
[2017-06-14] MEDS: CLINDAMYCIN 150 MG CAP PO (08:34)
[2017-06-14] MEDS: NYSTATIN 500,000 U/5 ML SUSP UDC PO ×4 (08:34→21:09)
[2017-06-14] MEDS: SODIUM CHLORIDE 0.9% NASAL GEL 15MG (AYR) ×2 (08:34→21:11)
[2017-06-14] MEDS: POLYVINYL ALCOHOL OPHTH SOLN 15 ML(LIQUITEARS) OU ×2 (08:34→21:11)
[2017-06-14] MEDS: ASPIRIN 81 MG ENTERIC TAB PO (08:34)
[2017-06-14] MEDS: SIMETHICONE 80 MG CHEW TAB PO ×2 (09:58→17:11)
[2017-06-14] MEDS: ACETAMINOPHEN TAB 650MG DOSE (2X325MG) PO (09:59)
[2017-06-14 10:27] LABS: CK-MB VALUE MASS 4.4 NG/ML (0.0-3.6); CPK CREATINE PHOSPHOKINASE 57 U/L (39-308); MB/CK RELATIVE INDEX 7.71 (< OR =4); TROPONIN I 0.21 NG/ML (< 0.10)
[2017-06-14 12:09] LABS: BEDSIDE GLUCOSE 225 MG/DL (80-115)
[2017-06-14] MEDS: HumaLOG INSULIN (NovoLOG) PER UNIT SC (12:46)
[2017-06-14 17:00] LABS: BEDSIDE GLUCOSE 137 MG/DL (80-115)
[2017-06-14] MEDS: CALCIUM CARBONATE 500 MG CHEW U/D PO (17:14)
[2017-06-14 18:29] LABS: CK-MB VALUE MASS 5.8 NG/ML (0.0-3.6); CPK CREATINE PHOSPHOKINASE 76 U/L (39-308); MB/CK RELATIVE INDEX 7.63 (< OR =4); TROPONIN I 0.18 NG/ML (< 0.10)
[2017-06-14] MEDS: SENOKOT S TAB PO (21:08)
[2017-06-14] MEDS: ISOSORBIDE DIN. (ISORDIL) 30 MG TAB PO (21:08)
[2017-06-14] MEDS: GABAPENTIN 100 MG CAP PO (21:09)
[2017-06-14] MEDS: traZODone 100 MG TAB PO (21:09)
[2017-06-14] MEDS: CLOPIDOGREL 75 MG TAB PO (21:09)
[2017-06-14] MEDS: SIMVASTATIN 40 MG TAB PO (21:10)
[2017-06-14] MEDS: DALIRESP 500 MCG PO (21:10)
[2017-06-14 21:37] LABS: BEDSIDE GLUCOSE 109 MG/DL (80-115)
[2017-06-15] MEDS: IPRATROPIUM 0.5MG/ALBUTEROL 2.5MG INH SOL UD 3ML (DUONEB)(J7620) INH ×8 (00:14→23:06)
[2017-06-15 02:29] LABS: CPK CREATINE PHOSPHOKINASE 65 U/L (39-308); TROPONIN I 0.18 NG/ML (< 0.10)
[2017-06-15 02:30] LABS: CK-MB VALUE MASS 4.8 NG/ML (0.0-3.6); MB/CK RELATIVE INDEX 7.38 (< OR =4)
[2017-06-15 05:47] LABS: BASO % 0.6 % (0.0-1.0); EOS # 0.3 10^3/uL (0.0-0.50); EOS % 4.2 % (0.0-3.0); HEMATOCRIT 33.6 % (42.0-52.0); HEMOGLOBIN 10.6 g/dl (14.0-18.0); IMMATURE GRANULOCYTE % 0.3 % (0-0); LYMPH # 0.6 10^3/uL (1.5-4.5); LYMPH % 8.1 % (24.0-44.0); MEAN CORPUSCULAR HEMOGLOBIN 29.4 pg (27.0-33.0); MEAN CORPUSCULAR HGB CONC 31.5 g/dl (32.0-36.5); MEAN CORPUSCULAR VOLUME 93.1 fl (80.0-96.0); MONO # 0.6 10^3/uL (0.0-0.8); MONO % 9.4 % (0.0-5.0); NEUTROPHILS # 5.3 10^3/uL (1.8-7.7); NEUTROPHILS % 77.4 % (36.0-66.0); PLATELET COUNT, AUTOMATED 115 10^3/uL (150-450); RED BLOOD COUNT 3.61 10^6/uL (4.30-6.10); RED CELL DISTRIBUTION WIDTH 14.5 % (11.5-14.5); WHITE BLOOD COUNT 6.8 10^3/uL (4.0-10.0)
[2017-06-15] MEDS: SLF 3 ML SYR IV ×3 (05:57→21:10)
[2017-06-15] MEDS: APIXABAN 2.5 MG TAB (ELIQUIS) PO ×2 (05:57→21:09)
[2017-06-15] MEDS: VITAMIN D 1,000 INTERNATIONAL UNITS TABLET PO (05:57)
[2017-06-15] MEDS: CINACALCET 30 MG TAB (SENSIPAR) PO (05:58)
[2017-06-15] MEDS: guaiFENesin ER 600 MG TAB PO ×2 (05:58→21:09)
[2017-06-15] MEDS: PANTOPRAZOLE 40MG TAB (PROTONIX) PO ×2 (05:59→21:10)
[2017-06-15] MEDS: ASPIRIN 81 MG ENTERIC TAB PO (05:59)
[2017-06-15] MEDS: NYSTATIN 500,000 U/5 ML SUSP UDC PO ×4 (05:59→21:08)
[2017-06-15] MEDS: SODIUM CHLORIDE 0.9% NASAL GEL 15MG (AYR) ×2 (05:59→21:07)
[2017-06-15] MEDS: DOCUSATE SODIUM 100 MG CAP PO (05:59)
[2017-06-15] MEDS: POLYVINYL ALCOHOL OPHTH SOLN 15 ML(LIQUITEARS) OU ×2 (06:00→21:07)
[2017-06-15] MEDS: (RENVELA) SEVELAMER **CARBONate** 800 MG TAB PO ×3 (06:04→18:20)
[2017-06-15] MEDS: LACTOBACILLUS ACIDOPHILUS CAP (BACID) PO ×3 (06:04→18:20)
[2017-06-15 06:06] LABS: ANION GAP 5 MEQ/L (8-16); BLOOD UREA NITROGEN 32 MG/DL (7-18); C REACTIVE PROTEIN QUANTITATIV 1.26 MG/DL (0.00-0.30); CALCIUM LEVEL 8.5 MG/DL (8.8-10.2); CARBON DIOXIDE LEVEL 28 MEQ/L (21-32); CHLORIDE LEVEL 102 MEQ/L (98-107); CREATININE FOR GFR 3.93 MG/DL (0.70-1.30); GLOMERULAR FILTRATION RATE 16.3 (>49); GLUCOSE, FASTING 48 MG/DL (70-100); POTASSIUM SERUM 4.7 MEQ/L (3.5-5.1); SODIUM LEVEL 135 MEQ/L (136-145)
[2017-06-15] MEDS: LEVEMIR (INSULIN DETEMIR) 1 UNITS/0.01ML SC (08:50)
[2017-06-15] MEDS ORDERED: LEVEMIR (INSULIN DETEMIR) 1 UNITS/0.01ML SC (09:00)
[2017-06-15 10:59] LABS: CK-MB VALUE MASS 5.2 NG/ML (0.0-3.6); CPK CREATINE PHOSPHOKINASE 88 U/L (39-308); TROPONIN I 0.13 NG/ML (< 0.10)
[2017-06-15] MEDS: SYMBICORT 160/4.5MCG INHALER 6GM INH ×2 (11:05→20:04)
[2017-06-15] MEDS: HumaLOG INSULIN (NovoLOG) PER UNIT SC (11:34)
[2017-06-15] MEDS: CALCIUM CARBONATE 500 MG CHEW U/D PO ×3 (11:34→22:41)
[2017-06-15 11:36] LABS: BEDSIDE GLUCOSE 150 MG/DL (80-115)
[2017-06-15] MEDS: ONDANSETRON 4MG/2ML VIAL (J2405) IV (13:20)
[2017-06-15] MEDS: SIMETHICONE 80 MG CHEW TAB PO ×2 (16:25→23:50)
[2017-06-15 16:36] LABS: BEDSIDE GLUCOSE 99 MG/DL (80-115)
[2017-06-15] MEDS: MOM 30ML SUSPENSION UDC PO (21:07)
[2017-06-15] MEDS: GABAPENTIN 100 MG CAP PO (21:08)
[2017-06-15] MEDS: ACETAMINOPHEN TAB 650MG DOSE (2X325MG) PO (21:08)
[2017-06-15] MEDS: SIMVASTATIN 40 MG TAB PO (21:09)
[2017-06-15] MEDS: CLOPIDOGREL 75 MG TAB PO (21:09)
[2017-06-15] MEDS: ISOSORBIDE DIN. (ISORDIL) 30 MG TAB PO (21:09)
[2017-06-15] MEDS: SENOKOT S TAB PO (21:09)
[2017-06-15] MEDS: traZODone 100 MG TAB PO (21:10)
[2017-06-15] MEDS: DALIRESP 500 MCG PO (21:12)
[2017-06-15 21:32] LABS: BEDSIDE GLUCOSE 211 MG/DL (80-115)
[2017-06-15] MEDS: diphenhydrAMINE 25 MG CAP PO (22:41)
[2017-06-15] MEDS: NITROGLYCERIN 0.4 MG SUBL TABLET SL ×3 (23:44→23:50)
[2017-06-16] MEDS: clonazePAM 0.5 MG TAB PO (00:50)
[2017-06-16] MEDS: CINACALCET 30 MG TAB (SENSIPAR) PO (05:52)
[2017-06-16] MEDS: ASPIRIN 81 MG ENTERIC TAB PO (05:53)
[2017-06-16] MEDS: MULTIVITAMINS/MINERALS THERAP 1 TAB PO (05:53)
[2017-06-16] MEDS: APIXABAN 2.5 MG TAB (ELIQUIS) PO (05:53)
[2017-06-16] MEDS: NYSTATIN 500,000 U/5 ML SUSP UDC PO ×2 (05:53→12:49)
[2017-06-16] MEDS: guaiFENesin ER 600 MG TAB PO (05:53)
[2017-06-16] MEDS: PANTOPRAZOLE 40MG TAB (PROTONIX) PO (05:53)
[2017-06-16] MEDS: DOCUSATE SODIUM 100 MG CAP PO (05:53)
[2017-06-16] MEDS: SLF 3 ML SYR IV (05:54)
[2017-06-16] MEDS: VITAMIN D 1,000 INTERNATIONAL UNITS TABLET PO (05:56)
[2017-06-16] MEDS: POLYVINYL ALCOHOL OPHTH SOLN 15 ML(LIQUITEARS) OU (05:59)
[2017-06-16] MEDS: SODIUM CHLORIDE 0.9% NASAL GEL 15MG (AYR) (06:01)
[2017-06-16] MEDS: LACTOBACILLUS ACIDOPHILUS CAP (BACID) PO ×2 (06:02→12:50)
[2017-06-16] MEDS: (RENVELA) SEVELAMER **CARBONate** 800 MG TAB PO ×2 (06:03→12:50)
[2017-06-16 06:20] LABS: BEDSIDE GLUCOSE 192 MG/DL (80-115)
[2017-06-16 06:22] LABS: BASO # 0.1 10^3/uL (0.0-0.2); EOS # 0.2 10^3/uL (0.0-0.50); EOS % 3.6 % (0.0-3.0); HEMATOCRIT 32.9 % (42.0-52.0); HEMOGLOBIN 10.4 g/dl (14.0-18.0); IMMATURE GRANULOCYTE % 0.4 % (0-0); LYMPH # 0.4 10^3/uL (1.5-4.5); LYMPH % 8.2 % (24.0-44.0); MEAN CORPUSCULAR HEMOGLOBIN 29.9 pg (27.0-33.0); MEAN CORPUSCULAR HGB CONC 31.6 g/dl (32.0-36.5); MEAN CORPUSCULAR VOLUME 94.5 fl (80.0-96.0); MONO # 0.5 10^3/uL (0.0-0.8); MONO % 11.3 % (0.0-5.0); NEUTROPHILS # 3.6 10^3/uL (1.8-7.7); NEUTROPHILS % 75.5 % (36.0-66.0); RED BLOOD COUNT 3.48 10^6/uL (4.30-6.10); RED CELL DISTRIBUTION WIDTH 14.5 % (11.5-14.5); WHITE BLOOD COUNT 4.8 10^3/uL (4.0-10.0)
[2017-06-16] MEDS ORDERED: ISOVUE-300 61% 50ML VIAL (Q9967) As Ordered (06:47)
[2017-06-16] MEDS ORDERED: fentaNYL 100 MCG/2 ML INJECTION (J3010) As Ordered (06:47)
[2017-06-16] MEDS ORDERED: MIDAZOLAM INJ 2 MG/2 ML VIAL (J2250) As Ordered (06:47)
[2017-06-16 06:48] LABS: IMMATURE PLATELET FRACTION % 3.4 % (0.0-10.9); PLATELET COUNT, AUTOMATED 83 10^3/uL (150-450)
[2017-06-16] MEDS: IPRATROPIUM 0.5MG/ALBUTEROL 2.5MG INH SOL UD 3ML (DUONEB)(J7620) INH (08:00)
[2017-06-16] MEDS: LEVEMIR (INSULIN DETEMIR) 1 UNITS/0.01ML SC (09:00)
[2017-06-16 09:05] LABS: ANION GAP 5 MEQ/L (8-16); BLOOD UREA NITROGEN 23 MG/DL (7-18); C REACTIVE PROTEIN QUANTITATIV 4.15 MG/DL (0.00-0.30); CALCIUM LEVEL 8.8 MG/DL (8.8-10.2); CARBON DIOXIDE LEVEL 30 MEQ/L (21-32); CHLORIDE LEVEL 99 MEQ/L (98-107); CREATININE FOR GFR 3.22 MG/DL (0.70-1.30); GLOMERULAR FILTRATION RATE 20.5 (>49); GLUCOSE, FASTING 172 MG/DL (70-100); POTASSIUM SERUM 4.3 MEQ/L (3.5-5.1); SODIUM LEVEL 134 MEQ/L (136-145)
[2017-06-16 09:25] LABS: BEDSIDE GLUCOSE 158 MG/DL (80-115)
[2017-06-16] MEDS: SYMBICORT 160/4.5MCG INHALER 6GM INH (09:30)
[2017-06-16] MEDS: HumaLOG INSULIN (NovoLOG) PER UNIT SC (11:30)
[2017-06-16 12:00] LABS: BEDSIDE GLUCOSE 212 MG/DL (80-115)
[2017-06-16] MEDS: MOM 30ML SUSPENSION UDC PO (12:49)
== END 2017-06-16 13:27 | DRG 166 ==
LOC: M PCU 06-10 16:52 → M ED 16:45 → M ED INP 19:41
PROC: 5A1D70Z Performance of Urinary Filtration, Intermittent, Less than 6 Hours Per Day (ICD-10-PCS; principal; 2017-06-10)
PROC: 057A3DZ Dilation of Left Brachial Vein with Intraluminal Device, Percutaneous Approach (ICD-10-PCS; 2017-06-16)
PROC: 05783DZ Dilation of Left Axillary Vein with Intraluminal Device, Percutaneous Approach (ICD-10-PCS; 2017-06-16)
DX: J69.0 Pneumonitis due to inhalation of food and vomit (principal); N18.6 End stage renal disease; I50.42 Chronic combined systolic (congestive) and diastolic (congestive) heart failure; N25.81 Secondary hyperparathyroidism of renal origin; I13.2 Hypertensive heart and chronic kidney disease with heart failure and with stage 5 chronic kidney disease, or end stage renal disease; J44.1 Chronic obstructive pulmonary disease with (acute) exacerbation; J96.10 Chronic respiratory failure, unspecified whether with hypoxia or hypercapnia; E87.1 Hypo-osmolality and hyponatremia; B37.0 Candidal stomatitis; C15.5 Malignant neoplasm of lower third of esophagus; I48.0 Paroxysmal atrial fibrillation; I25.10 Atherosclerotic heart disease of native coronary artery without angina pectoris; E11.22 Type 2 diabetes mellitus with diabetic chronic kidney disease; R91.1 Solitary pulmonary nodule; I27.20 Pulmonary hypertension, unspecified; K21.9 Gastro-esophageal reflux disease without esophagitis; E11.40 Type 2 diabetes mellitus with diabetic neuropathy, unspecified; K59.00 Constipation, unspecified; I36.1 Nonrheumatic tricuspid (valve) insufficiency; R13.10 Dysphagia, unspecified; B97.4 Respiratory syncytial virus as the cause of diseases classified elsewhere; D64.9 Anemia, unspecified; G47.00 Insomnia, unspecified; Z95.5 Presence of coronary angioplasty implant and graft; Z89.512 Acquired absence of left leg below knee; Z89.611 Acquired absence of right leg above knee; Z87.891 Personal history of nicotine dependence; Z99.2 Dependence on renal dialysis; Z79.4 Long term (current) use of insulin; Y95 Nosocomial condition; Z79.01 Long term (current) use of anticoagulants; Z79.82 Long term (current) use of aspirin; Z88.8 Allergy status to other drugs, medicaments and biological substances; Z79.02 Long term (current) use of antithrombotics/antiplatelets; Z99.81 Dependence on supplemental oxygen

== ENCOUNTER → 2017-09-01 | Outpatient (REF) | payer MEDICARE, MEDICAID | LOC: SKLAB4 09:17 | DX: R09.81 Nasal congestion (principal); R91.8 Other nonspecific abnormal finding of lung field; I51.7 Cardiomegaly | CPT/HCPCS: 71045 ==

== ENCOUNTER → 2017-09-07 | Outpatient (REF) | payer MEDICARE, MEDICAID | LOC: SKLAB4 13:27 | DX: R06.2 Wheezing (principal) | CPT/HCPCS: 94762 ==

== ENCOUNTER 2017-09-13 09:57 | Inpatient (IN) | payer MEDICARE, MEDICAID ==
[2017-09-13] MEDS: SYMBICORT 160/4.5MCG INHALER 6GM INH (00:31)
[2017-09-13 11:10] LABS: BASO % 0.8 % (0.0-1.0); EOS # 0.1 10^3/uL (0.0-0.50); EOS % 2.6 % (0.0-3.0); HEMATOCRIT 38.4 % (42.0-52.0); HEMOGLOBIN 11.5 g/dl (13.5-17.5); IMMATURE GRANULOCYTE % 0.4 % (0-3.0); LYMPH # 0.5 10^3/uL (1.5-4.5); MEAN CORPUSCULAR HEMOGLOBIN 29.3 pg (27.0-33.0); MEAN CORPUSCULAR HGB CONC 29.9 g/dl (32.0-36.5); MEAN CORPUSCULAR VOLUME 97.7 fl (80.0-96.0); MONO # 0.5 10^3/uL (0.0-0.8); MONO % 8.8 % (0.0-5.0); NEUTROPHILS # 4.2 10^3/uL (1.8-7.7); NEUTROPHILS % 78.4 % (36.0-66.0); PLATELET COUNT, AUTOMATED 102 10^3/uL (150-450); RED BLOOD COUNT 3.93 10^6/uL (4.30-6.10); RED CELL DISTRIBUTION WIDTH 14.6 % (11.5-14.5); WHITE BLOOD COUNT 5.3 10^3/uL (4.0-10.0)
[2017-09-13 11:25] LABS: ALBUMIN 3.2 GM/DL (3.2-5.2); ALBUMIN/GLOBULIN RATIO 0.71 (1.00-1.93); ALKALINE PHOSPHATASE 208 U/L (45-117); ALT/SGPT 19 U/L (12-78); ANION GAP 3 MEQ/L (8-16); AST/SGOT 29 U/L (7-37); BILIRUBIN,DIRECT 0.2 MG/DL (0.0-0.2); BILIRUBIN,TOTAL 0.8 MG/DL (0.2-1.0); BLOOD UREA NITROGEN 12 MG/DL (7-18); CARBON DIOXIDE LEVEL 33 MEQ/L (21-32); CHLORIDE LEVEL 100 MEQ/L (98-107); CPK CREATINE PHOSPHOKINASE 138 U/L (39-308); CREATININE FOR GFR 3.32 MG/DL (0.70-1.30); GLOMERULAR FILTRATION RATE 19.8 (>49); GLUCOSE, FASTING 149 MG/DL (70-100); POTASSIUM SERUM 4.8 MEQ/L (3.5-5.1); SODIUM LEVEL 136 MEQ/L (136-145); TOTAL PROTEIN 7.7 GM/DL (6.4-8.2); TROPONIN I 0.11 NG/ML (< 0.10)
[2017-09-13 11:25] LABS: LACTIC ACID SEPSIS PROTOCOL 1.6 MMOL/L (0.4-2.0)
[2017-09-13 11:30] LABS: CK-MB VALUE MASS 6.7 NG/ML (<3.6); MB/CK RELATIVE INDEX 4.85 (< OR =4)
[2017-09-13 11:40] LABS: ABG BASE EXCESS 3.2 (-2.0-2.0); ABG O2 SATURATION 96.1 % (95.0-99.0); ABG PARTIAL PRESSURE O2 84.4 mmHg (75.0-100.0); ABG STANDARD HCO3 27.3 MEQ/L (22.0-26.0); ABG pH (ARTERIAL) 7.301 UNITS (7.350-7.450)
[2017-09-13 11:43] LABS: ABG PARTIAL PRESSURE CO2 64.3 mmHg (35.0-45.0)
[2017-09-13] MEDS: IPRATROPIUM 0.5MG/ALBUTEROL 2.5MG INH SOL UD 3ML (DUONEB)(J7620) NEB ×4 (11:56→19:40)
[2017-09-13 13:07] LABS: ABG BASE EXCESS -0.2 (-2.0-2.0); ABG O2 SATURATION 95.2 % (95.0-99.0); ABG PARTIAL PRESSURE CO2 56.2 mmHg (35.0-45.0); ABG PARTIAL PRESSURE O2 81.6 mmHg (75.0-100.0); ABG STANDARD HCO3 24.3 MEQ/L (22.0-26.0); ABG TOTAL CO2 28.7 MEQ/L (23.0-31.0); ABG pH (ARTERIAL) 7.299 UNITS (7.350-7.450)
[2017-09-13] MEDS ORDERED: IPRATROPIUM 0.5MG/ALBUTEROL 2.5MG INH SOL UD 3ML (DUONEB)(J7620) NEB (14:00)
[2017-09-13] MEDS ORDERED: POLYVINYL ALCOHOL OPHTH SOLN 15 ML(LIQUITEARS) OU (14:00)
[2017-09-13] MEDS ORDERED: GLUCAGON FOR INJ 1 MG VIAL (J1610) SC (14:00)
[2017-09-13] MEDS ORDERED: GLUCOSE 4 GM CHEW TABLET PO (14:00)
[2017-09-13] MEDS ORDERED: DEXTROSE 50% 50 ML SYRINGE IV (14:00)
[2017-09-13] MEDS ORDERED: FLUTICASONE PROP 0.05% NASAL SPRAY 16 GM (FLONASE) (14:00)
[2017-09-13] MEDS: LEVEMIR (INSULIN DETEMIR) 1 UNITS/0.01ML SC (16:02)
[2017-09-13] MEDS: methylPREDNISolone INJ 125 MG/2 ML VIAL (J2930) IV ×2 (16:02→23:40)
[2017-09-13] MEDS: PIPERACILLIN/TAZOBACTAM SOD 2.25 GM in D5W MINI-BAG PLUS 50 ML IV ×2 (16:10→23:40)
[2017-09-13] MEDS: VANCOMYCIN HCL 1,000 MG, VIAL MATE ADAPTER 1 EACH in D5W 250 ML IV (17:10)
[2017-09-13] MEDS: HumaLOG INSULIN (NovoLOG) PER UNIT SC ×2 (18:30→20:28)
[2017-09-13 18:50] LABS: CK-MB VALUE MASS 5.5 NG/ML (<3.6); CPK CREATINE PHOSPHOKINASE 82 U/L (39-308)
[2017-09-13 19:12] LABS: BEDSIDE GLUCOSE 212 MG/DL (80-115)
[2017-09-13] MEDS: (RENVELA) SEVELAMER **CARBONate** 800 MG TAB PO (20:23)
[2017-09-13] MEDS: SIMETHICONE 80 MG CHEW TAB PO ×2 (20:23→20:28)
[2017-09-13] MEDS: NYSTATIN 500,000 U/5 ML SUSP UDC SS (20:24)
[2017-09-13] MEDS: SENOKOT S TAB PO (20:25)
[2017-09-13] MEDS: CLOPIDOGREL 75 MG TAB PO (20:25)
[2017-09-13] MEDS: ISOSORBIDE DIN. (ISORDIL) 30 MG TAB PO (20:25)
[2017-09-13] MEDS: METOPROLOL SUCC (TopROL XL) 50MG **XL** TAB PO (20:26)
[2017-09-13] MEDS: POLYVINYL ALCOHOL OPHTH SOLN 15 ML(LIQUITEARS) OU (20:26)
[2017-09-13] MEDS: APIXABAN 2.5 MG TAB (ELIQUIS) PO (20:26)
[2017-09-13] MEDS: SODIUM CHLORIDE 0.9% NASAL GEL 15GM (AYR) (20:27)
[2017-09-13 23:34] LABS: ABG BASE EXCESS 2.3 (-2.0-2.0); ABG HCO3 29.5 MEQ/L (22.0-26.0); ABG O2 LITER FLOW 2L; ABG O2 SATURATION 97.3 % (95.0-99.0); ABG PARTIAL PRESSURE CO2 59.2 mmHg (35.0-45.0); ABG PARTIAL PRESSURE O2 93.6 mmHg (75.0-100.0); ABG STANDARD HCO3 26.5 MEQ/L (22.0-26.0); ABG TOTAL CO2 31.4 MEQ/L (23.0-31.0); ABG pH (ARTERIAL) 7.316 UNITS (7.350-7.450)
[2017-09-13 23:39] LABS: BEDSIDE GLUCOSE 152 MG/DL (80-115)
[2017-09-13] MEDS: ACETAMINOPHEN TAB 650MG DOSE (2X325MG) PO (23:41)
[2017-09-14 00:02] LABS: ANION GAP 5 MEQ/L (8-16); BLOOD UREA NITROGEN 16 MG/DL (7-18); CALCIUM LEVEL 8.6 MG/DL (8.8-10.2); CARBON DIOXIDE LEVEL 30 MEQ/L (21-32); CHLORIDE LEVEL 102 MEQ/L (98-107); CPK CREATINE PHOSPHOKINASE 68 U/L (39-308); CREATININE FOR GFR 3.69 MG/DL (0.70-1.30); GLOMERULAR FILTRATION RATE 17.5 (>49); GLUCOSE, FASTING 154 MG/DL (70-100); MAGNESIUM LEVEL 2.3 MG/DL (1.8-2.4); POTASSIUM SERUM 4.6 MEQ/L (3.5-5.1); SODIUM LEVEL 137 MEQ/L (136-145); TROPONIN I 0.21 NG/ML (< 0.10)
[2017-09-14 00:07] LABS: CK-MB VALUE MASS 4.7 NG/ML (<3.6); MB/CK RELATIVE INDEX 6.91 (< OR =4)
[2017-09-14] MEDS ORDERED: PILL CRUSHER/CUTTER 1 EACH XX (01:00)
[2017-09-14] MEDS: IPRATROPIUM 0.5MG/ALBUTEROL 2.5MG INH SOL UD 3ML (DUONEB)(J7620) NEB ×4 (01:41→19:28)
[2017-09-14 05:38] LABS: HEMATOCRIT 33.9 % (42.0-52.0); HEMOGLOBIN 10.3 g/dl (13.5-17.5); MEAN CORPUSCULAR HEMOGLOBIN 29.3 pg (27.0-33.0); MEAN CORPUSCULAR HGB CONC 30.4 g/dl (32.0-36.5); MEAN CORPUSCULAR VOLUME 96.6 fl (80.0-96.0); RED BLOOD COUNT 3.51 10^6/uL (4.30-6.10); RED CELL DISTRIBUTION WIDTH 14.4 % (11.5-14.5); WHITE BLOOD COUNT 3.9 10^3/uL (4.0-10.0)
[2017-09-14 05:54] LABS: CK-MB VALUE MASS 4.4 NG/ML (<3.6); CPK CREATINE PHOSPHOKINASE 60 U/L (39-308); MB/CK RELATIVE INDEX 7.33 (< OR =4); TROPONIN I 0.19 NG/ML (< 0.10)
[2017-09-14 05:55] LABS: ALBUMIN 2.8 GM/DL (3.2-5.2); ALKALINE PHOSPHATASE 166 U/L (45-117); ALT/SGPT 11 U/L (12-78); ANION GAP 6 MEQ/L (8-16); AST/SGOT 7 U/L (7-37); BILIRUBIN,TOTAL 0.7 MG/DL (0.2-1.0); BLOOD UREA NITROGEN 17 MG/DL (7-18); CALCIUM LEVEL 8.4 MG/DL (8.8-10.2); CARBON DIOXIDE LEVEL 30 MEQ/L (21-32); CHLORIDE LEVEL 101 MEQ/L (98-107); CREATININE FOR GFR 3.89 MG/DL (0.70-1.30); GLOMERULAR FILTRATION RATE 16.5 (>49); GLUCOSE, FASTING 189 MG/DL (70-100); MAGNESIUM LEVEL 2.5 MG/DL (1.8-2.4); SODIUM LEVEL 137 MEQ/L (136-145); TOTAL PROTEIN 6.3 GM/DL (6.4-8.2); VANCOMYCIN RANDOM 9.8 UG/ML
[2017-09-14 06:20] LABS: PLATELET COUNT, AUTOMATED 88 10^3/uL (150-450)
[2017-09-14 06:24] LABS: IMMATURE PLATELET FRACTION % 5.2 % (0.0-10.9); PLATELET F 88
[2017-09-14] MEDS: NYSTATIN 500,000 U/5 ML SUSP UDC SS ×4 (06:46→17:01)
[2017-09-14] MEDS: PIPERACILLIN/TAZOBACTAM SOD 2.25 GM in D5W MINI-BAG PLUS 50 ML IV ×3 (06:46→22:20)
[2017-09-14] MEDS: methylPREDNISolone INJ 125 MG/2 ML VIAL (J2930) IV ×3 (06:46→22:20)
[2017-09-14] MEDS: SYMBICORT 160/4.5MCG INHALER 6GM INH ×2 (07:11→21:23)
[2017-09-14] MEDS: HumaLOG INSULIN (NovoLOG) PER UNIT SC ×4 (07:30→20:35)
[2017-09-14] MEDS: (RENVELA) SEVELAMER **CARBONate** 800 MG TAB PO ×3 (07:48→17:01)
[2017-09-14] MEDS: LEVEMIR (INSULIN DETEMIR) 1 UNITS/0.01ML SC (07:49)
[2017-09-14] MEDS: ASPIRIN 81 MG ENTERIC TAB PO (07:49)
[2017-09-14] MEDS: SIMETHICONE 80 MG CHEW TAB PO ×3 (07:49→20:35)
[2017-09-14] MEDS: APIXABAN 2.5 MG TAB (ELIQUIS) PO ×2 (07:49→20:35)
[2017-09-14 08:23] LABS: BEDSIDE GLUCOSE 198 MG/DL (80-115)
[2017-09-14] MEDS: SODIUM CHLORIDE 0.9% NASAL GEL 15GM (AYR) (09:00)
[2017-09-14 14:11] LABS: BEDSIDE GLUCOSE 129 MG/DL (80-115)
[2017-09-14] MEDS: POLYVINYL ALCOHOL OPHTH SOLN 15 ML(LIQUITEARS) OU ×2 (14:15→20:36)
[2017-09-14 14:21] LABS: HEMATOCRIT 32.7 % (42.0-52.0); HEMOGLOBIN 10.4 g/dl (13.5-17.5); MEAN CORPUSCULAR HEMOGLOBIN 29.6 pg (27.0-33.0); MEAN CORPUSCULAR HGB CONC 31.8 g/dl (32.0-36.5); MEAN CORPUSCULAR VOLUME 93.2 fl (80.0-96.0); RED BLOOD COUNT 3.51 10^6/uL (4.30-6.10); RED CELL DISTRIBUTION WIDTH 14.4 % (11.5-14.5); WHITE BLOOD COUNT 4.4 10^3/uL (4.0-10.0)
[2017-09-14 14:25] LABS: CPK CREATINE PHOSPHOKINASE 56 U/L (39-308); TROPONIN I 0.13 NG/ML (< 0.10)
[2017-09-14 14:26] LABS: CK-MB VALUE MASS 4.2 NG/ML (<3.6)
[2017-09-14 14:49] LABS: PLATELET COUNT, AUTOMATED 96 10^3/uL (150-450); POS COUNT POS FLAG
[2017-09-14] MEDS: **VANCO AFTER HD** MISC XX (16:00)
[2017-09-14 16:40] LABS: BEDSIDE GLUCOSE 173 MG/DL (80-115)
[2017-09-14] MEDS: VANCOMYCIN HCL 500 MG in D5W MINI-BAG PLUS 100 ML IV ×2 (16:45→18:10)
[2017-09-14] MEDS: VANCOMYCIN HCL 1,000 MG, VIAL MATE ADAPTER 1 EACH in D5W 250 ML IV (17:00)
[2017-09-14 20:29] LABS: BEDSIDE GLUCOSE 176 MG/DL (80-115)
[2017-09-14] MEDS: METOPROLOL SUCC (TopROL XL) 50MG **XL** TAB PO (20:34)
[2017-09-14] MEDS: CLOPIDOGREL 75 MG TAB PO (20:34)
[2017-09-14] MEDS: ISOSORBIDE DIN. (ISORDIL) 30 MG TAB PO (20:35)
[2017-09-14] MEDS: SENOKOT S TAB PO (20:35)
[2017-09-14] MEDS: ACETAMINOPHEN TAB 650MG DOSE (2X325MG) PO (22:21)
[2017-09-15] MEDS: SODIUM CHLORIDE 0.9% NASAL GEL 15GM (AYR) ×3 (00:10→20:58)
[2017-09-15] MEDS: NYSTATIN 500,000 U/5 ML SUSP UDC SS ×4 (00:11→17:45)
[2017-09-15] MEDS: IPRATROPIUM 0.5MG/ALBUTEROL 2.5MG INH SOL UD 3ML (DUONEB)(J7620) NEB ×5 (01:12→20:00)
[2017-09-15] MEDS: RAMELTEON 8 MG TAB (ROZEREM) PO (02:52)
[2017-09-15] MEDS ORDERED: SLF 3 ML SYR IV (03:15)
[2017-09-15 05:26] LABS: HEMATOCRIT 32.7 % (42.0-52.0); HEMOGLOBIN 10.5 g/dl (13.5-17.5); MEAN CORPUSCULAR HGB CONC 32.1 g/dl (32.0-36.5); MEAN CORPUSCULAR VOLUME 93.4 fl (80.0-96.0); PLATELET COUNT, AUTOMATED 106 10^3/uL (150-450); RED CELL DISTRIBUTION WIDTH 14.2 % (11.5-14.5); WHITE BLOOD COUNT 5.4 10^3/uL (4.0-10.0)
[2017-09-15 05:42] LABS: ALBUMIN 2.9 GM/DL (3.2-5.2); ALBUMIN/GLOBULIN RATIO 0.78 (1.00-1.93); ALKALINE PHOSPHATASE 141 U/L (45-117); ALT/SGPT 13 U/L (12-78); ANION GAP 7 MEQ/L (8-16); AST/SGOT 9 U/L (7-37); BILIRUBIN,TOTAL 0.8 MG/DL (0.2-1.0); BLOOD UREA NITROGEN 15 MG/DL (7-18); CALCIUM LEVEL 8.8 MG/DL (8.8-10.2); CARBON DIOXIDE LEVEL 28 MEQ/L (21-32); CHLORIDE LEVEL 99 MEQ/L (98-107); CREATININE FOR GFR 2.89 MG/DL (0.70-1.30); GLOMERULAR FILTRATION RATE 23.2 (>49); GLUCOSE, FASTING 201 MG/DL (70-100); MAGNESIUM LEVEL 2.3 MG/DL (1.8-2.4); POTASSIUM SERUM 4.3 MEQ/L (3.5-5.1); SODIUM LEVEL 134 MEQ/L (136-145); TOTAL PROTEIN 6.6 GM/DL (6.4-8.2)
[2017-09-15] MEDS: SLF 3 ML SYR IV ×3 (06:25→22:12)
[2017-09-15] MEDS: methylPREDNISolone INJ 125 MG/2 ML VIAL (J2930) IV ×3 (06:25→22:12)
[2017-09-15] MEDS: PIPERACILLIN/TAZOBACTAM SOD 2.25 GM in D5W MINI-BAG PLUS 50 ML IV ×3 (06:31→22:12)
[2017-09-15] MEDS: SYMBICORT 160/4.5MCG INHALER 6GM INH ×2 (07:23→20:17)
[2017-09-15 08:22] LABS: BEDSIDE GLUCOSE 236 MG/DL (80-115)
[2017-09-15] MEDS: HumaLOG INSULIN (NovoLOG) PER UNIT SC ×4 (08:47→20:48)
[2017-09-15] MEDS: POLYVINYL ALCOHOL OPHTH SOLN 15 ML(LIQUITEARS) OU ×2 (09:00→20:58)
[2017-09-15] MEDS: LEVEMIR (INSULIN DETEMIR) 1 UNITS/0.01ML SC (09:12)
[2017-09-15] MEDS: (RENVELA) SEVELAMER **CARBONate** 800 MG TAB PO ×3 (09:15→17:45)
[2017-09-15] MEDS: APIXABAN 2.5 MG TAB (ELIQUIS) PO ×2 (09:15→20:57)
[2017-09-15] MEDS: SIMETHICONE 80 MG CHEW TAB PO ×3 (09:15→20:56)
[2017-09-15] MEDS: ASPIRIN 81 MG ENTERIC TAB PO (09:15)
[2017-09-15 12:08] LABS: BEDSIDE GLUCOSE 181 MG/DL (80-115)
[2017-09-15] MEDS: **VANCO AFTER HD** MISC XX (16:00)
[2017-09-15 17:44] LABS: BEDSIDE GLUCOSE 140 MG/DL (80-115)
[2017-09-15] MEDS: ISOSORBIDE DIN. (ISORDIL) 30 MG TAB PO (20:57)
[2017-09-15] MEDS: CLOPIDOGREL 75 MG TAB PO (20:57)
[2017-09-15] MEDS: METOPROLOL SUCC (TopROL XL) 50MG **XL** TAB PO (20:57)
[2017-09-15] MEDS: DOCUSATE SODIUM 100 MG CAP PO (20:57)
[2017-09-15] MEDS: SENOKOT S TAB PO (20:58)
[2017-09-15] MEDS: ACETAMINOPHEN TAB 650MG DOSE (2X325MG) PO (22:12)
[2017-09-16] MEDS: NYSTATIN 500,000 U/5 ML SUSP UDC SS ×5 (00:30→23:27)
[2017-09-16] MEDS: IPRATROPIUM 0.5MG/ALBUTEROL 2.5MG INH SOL UD 3ML (DUONEB)(J7620) NEB ×4 (01:27→20:00)
[2017-09-16] MEDS: BISACODYL ENEMA 10 MG/30 ML PR (03:30)
[2017-09-16 04:04] LABS: HEMATOCRIT 33.8 % (42.0-52.0); HEMOGLOBIN 10.7 g/dl (13.5-17.5); MEAN CORPUSCULAR HEMOGLOBIN 29.2 pg (27.0-33.0); MEAN CORPUSCULAR HGB CONC 31.7 g/dl (32.0-36.5); MEAN CORPUSCULAR VOLUME 92.3 fl (80.0-96.0); PLATELET COUNT, AUTOMATED 117 10^3/uL (150-450); RED BLOOD COUNT 3.66 10^6/uL (4.30-6.10); RED CELL DISTRIBUTION WIDTH 14.4 % (11.5-14.5)
[2017-09-16 04:26] LABS: ALBUMIN 3.1 GM/DL (3.2-5.2); ALBUMIN/GLOBULIN RATIO 0.84 (1.00-1.93); ALKALINE PHOSPHATASE 145 U/L (45-117); ALT/SGPT 15 U/L (12-78); ANION GAP 9 MEQ/L (8-16); AST/SGOT 10 U/L (7-37); BILIRUBIN,TOTAL 0.9 MG/DL (0.2-1.0); BLOOD UREA NITROGEN 27 MG/DL (7-18); CALCIUM LEVEL 9.1 MG/DL (8.8-10.2); CARBON DIOXIDE LEVEL 27 MEQ/L (21-32); CHLORIDE LEVEL 98 MEQ/L (98-107); CREATININE FOR GFR 3.56 MG/DL (0.70-1.30); GLOMERULAR FILTRATION RATE 18.2 (>49); GLUCOSE, FASTING 228 MG/DL (70-100); MAGNESIUM LEVEL 2.5 MG/DL (1.8-2.4); POTASSIUM SERUM 4.5 MEQ/L (3.5-5.1); SODIUM LEVEL 134 MEQ/L (136-145); TOTAL PROTEIN 6.8 GM/DL (6.4-8.2)
[2017-09-16] MEDS: DOCUSATE SODIUM 100 MG CAP PO ×2 (06:22→20:47)
[2017-09-16] MEDS: ASPIRIN 81 MG ENTERIC TAB PO (06:22)
[2017-09-16] MEDS: APIXABAN 2.5 MG TAB (ELIQUIS) PO ×2 (06:22→20:48)
[2017-09-16] MEDS: SIMETHICONE 80 MG CHEW TAB PO ×3 (06:22→20:48)
[2017-09-16] MEDS: PIPERACILLIN/TAZOBACTAM SOD 2.25 GM in D5W MINI-BAG PLUS 50 ML IV ×3 (06:23→23:00)
[2017-09-16] MEDS: methylPREDNISolone INJ 125 MG/2 ML VIAL (J2930) IV ×3 (06:23→23:00)
[2017-09-16] MEDS: SLF 3 ML SYR IV ×3 (06:23→20:49)
[2017-09-16] MEDS: SYMBICORT 160/4.5MCG INHALER 6GM INH ×2 (07:28→20:19)
[2017-09-16] MEDS: (RENVELA) SEVELAMER **CARBONate** 800 MG TAB PO ×3 (07:40→17:07)
[2017-09-16] MEDS: LEVEMIR (INSULIN DETEMIR) 1 UNITS/0.01ML SC (07:41)
[2017-09-16] MEDS: HumaLOG INSULIN (NovoLOG) PER UNIT SC ×4 (07:41→20:10)
[2017-09-16] MEDS: POLYVINYL ALCOHOL OPHTH SOLN 15 ML(LIQUITEARS) OU ×2 (07:42→20:50)
[2017-09-16] MEDS: SODIUM CHLORIDE 0.9% NASAL GEL 15GM (AYR) ×2 (07:42→20:50)
[2017-09-16 08:41] LABS: BF MONONUCLEAR CELL % 65.7 % (0-0); BF POLYMORPHONUCLEAR CELL % 34.3 % (0-0); RBC BODY FLUID 2 10^3/uL (<2); WBC BODY FLUID 137 /uL (0-10)
[2017-09-16 08:42] LABS: APPEARANCE, BODY FLUID HAZY (CLEAR); BF DIFF IF INDICATED? YES (NO); PLEURAL FL COLOR PALE YELLOW (COLORLESS); SOURCE, BODY FLUID PLEURAL
[2017-09-16] MEDS: ACETAMINOPHEN TAB 650MG DOSE (2X325MG) PO (14:11)
[2017-09-16] MEDS: **VANCO AFTER HD** MISC XX (15:03)
[2017-09-16] MEDS: VANCOMYCIN HCL 1,000 MG, VIAL MATE ADAPTER 1 EACH in D5W 250 ML IV (15:03)
[2017-09-16 16:56] LABS: BEDSIDE GLUCOSE 168 MG/DL (80-115)
[2017-09-16 20:17] LABS: BEDSIDE GLUCOSE 109 MG/DL (80-115)
[2017-09-16] MEDS: clonazePAM 0.5 MG TAB PO (20:48)
[2017-09-16] MEDS: ISOSORBIDE DIN. (ISORDIL) 30 MG TAB PO (20:48)
[2017-09-16] MEDS: CLOPIDOGREL 75 MG TAB PO (20:48)
[2017-09-16] MEDS: SENOKOT S TAB PO (20:48)
[2017-09-16] MEDS: METOPROLOL SUCC (TopROL XL) 50MG **XL** TAB PO (20:49)
[2017-09-17] MEDS: ACETAMINOPHEN TAB 650MG DOSE (2X325MG) PO (02:11)
[2017-09-17 04:04] LABS: HEMATOCRIT 40.2 % (42.0-52.0); HEMOGLOBIN 12.6 g/dl (13.5-17.5); MEAN CORPUSCULAR HEMOGLOBIN 29.8 pg (27.0-33.0); MEAN CORPUSCULAR HGB CONC 31.3 g/dl (32.0-36.5); RED BLOOD COUNT 4.23 10^6/uL (4.30-6.10); RED CELL DISTRIBUTION WIDTH 14.6 % (11.5-14.5); WHITE BLOOD COUNT 6.6 10^3/uL (4.0-10.0)
[2017-09-17 04:12] LABS: PLATELET COUNT, AUTOMATED 93 10^3/uL (150-450); POS COUNT POS FLAG
[2017-09-17 04:17] LABS: IMMATURE PLATELET FRACTION % 6.6 % (0.0-10.9)
[2017-09-17 04:28] LABS: ALBUMIN 2.6 GM/DL (3.2-5.2); ALBUMIN/GLOBULIN RATIO 0.57 (1.00-1.93); ALKALINE PHOSPHATASE 127 U/L (45-117); ALT/SGPT 22 U/L (12-78); ANION GAP 11 MEQ/L (8-16); AST/SGOT 43 U/L (7-37); BILIRUBIN,TOTAL 1.3 MG/DL (0.2-1.0); BLOOD UREA NITROGEN 21 MG/DL (7-18); CARBON DIOXIDE LEVEL 22 MEQ/L (21-32); CHLORIDE LEVEL 98 MEQ/L (98-107); GLUCOSE, FASTING 146 MG/DL (70-100); MAGNESIUM LEVEL 2.4 MG/DL (1.8-2.4); POTASSIUM SERUM 4.8 MEQ/L (3.5-5.1); SODIUM LEVEL 131 MEQ/L (136-145); TOTAL PROTEIN 7.2 GM/DL (6.4-8.2)
[2017-09-17] MEDS: IPRATROPIUM 0.5MG/ALBUTEROL 2.5MG INH SOL UD 3ML (DUONEB)(J7620) NEB ×3 (05:02→13:33)
[2017-09-17] MEDS: OMEPRAZOLE 20 MG CAP PO (06:25)
[2017-09-17] MEDS: methylPREDNISolone INJ 125 MG/2 ML VIAL (J2930) IV (06:25)
[2017-09-17] MEDS: PIPERACILLIN/TAZOBACTAM SOD 2.25 GM in D5W MINI-BAG PLUS 50 ML IV (06:25)
[2017-09-17] MEDS: NYSTATIN 500,000 U/5 ML SUSP UDC SS ×2 (06:26→12:08)
[2017-09-17] MEDS: SLF 3 ML SYR IV (06:26)
[2017-09-17] MEDS: SYMBICORT 160/4.5MCG INHALER 6GM INH (07:18)
[2017-09-17] MEDS: SODIUM CHLORIDE 0.9% NASAL GEL 15GM (AYR) (08:19)
[2017-09-17] MEDS: LEVEMIR (INSULIN DETEMIR) 1 UNITS/0.01ML SC (08:20)
[2017-09-17] MEDS: POLYVINYL ALCOHOL OPHTH SOLN 15 ML(LIQUITEARS) OU (08:20)
[2017-09-17] MEDS: (RENVELA) SEVELAMER **CARBONate** 800 MG TAB PO ×2 (08:21→12:08)
[2017-09-17] MEDS: ASPIRIN 81 MG ENTERIC TAB PO (08:21)
[2017-09-17] MEDS: HumaLOG INSULIN (NovoLOG) PER UNIT SC ×2 (08:21→12:07)
[2017-09-17] MEDS: APIXABAN 2.5 MG TAB (ELIQUIS) PO (08:21)
[2017-09-17] MEDS: SIMETHICONE 80 MG CHEW TAB PO (08:21)
[2017-09-17] MEDS: DOCUSATE SODIUM 100 MG CAP PO (08:21)
[2017-09-17 10:53] LABS: BEDSIDE GLUCOSE 142 MG/DL (80-115)
[2017-09-17 10:53] LABS: BEDSIDE GLUCOSE 160 MG/DL (80-115)
[2017-09-17 11:52] LABS: BEDSIDE GLUCOSE 268 MG/DL (80-115)
[2017-09-17] MEDS ORDERED: PIPERACILLIN/TAZOBACTAM SOD 2.25 GM in D5W MINI-BAG PLUS 50 ML IV (18:00)
[2017-09-17] MEDS ORDERED: OMEPRAZOLE 20 MG CAP PO ×2 (21:00)
[2017-09-19] MEDS ORDERED: DARBEPOETIN 100 MCG/0.5 ML *DIALYSIS* SYRINGE (J0882) IV (08:00)
== END 2017-09-17 14:30 | DRG 291 ==
LOC: M ED 09:57 → M ED INP 14:33 → M PCU 21:28
PROC: 5A1D70Z Performance of Urinary Filtration, Intermittent, Less than 6 Hours Per Day (ICD-10-PCS; principal; 2017-09-14)
PROC: 0W993ZZ Drainage of Right Pleural Cavity, Percutaneous Approach (ICD-10-PCS; 2017-09-15)
DX: I13.2 Hypertensive heart and chronic kidney disease with heart failure and with stage 5 chronic kidney disease, or end stage renal disease (principal); N18.6 End stage renal disease; I50.43 Acute on chronic combined systolic (congestive) and diastolic (congestive) heart failure; N25.81 Secondary hyperparathyroidism of renal origin; B37.0 Candidal stomatitis; J90 Pleural effusion, not elsewhere classified; J44.1 Chronic obstructive pulmonary disease with (acute) exacerbation; I48.2 Chronic atrial fibrillation; I25.10 Atherosclerotic heart disease of native coronary artery without angina pectoris; F41.9 Anxiety disorder, unspecified; K22.2 Esophageal obstruction; E11.22 Type 2 diabetes mellitus with diabetic chronic kidney disease; G89.29 Other chronic pain; F32.9 Major depressive disorder, single episode, unspecified; G47.00 Insomnia, unspecified; E11.51 Type 2 diabetes mellitus with diabetic peripheral angiopathy without gangrene; L89.101 Pressure ulcer of unspecified part of back, stage 1; D63.1 Anemia in chronic kidney disease; Z79.4 Long term (current) use of insulin; Z89.611 Acquired absence of right leg above knee; Z95.5 Presence of coronary angioplasty implant and graft; Z99.81 Dependence on supplemental oxygen; Z89.512 Acquired absence of left leg below knee; Z87.891 Personal history of nicotine dependence; Z99.2 Dependence on renal dialysis; Z79.82 Long term (current) use of aspirin; Z79.899 Other long term (current) drug therapy; Z88.8 Allergy status to other drugs, medicaments and biological substances

== ENCOUNTER → 2017-09-13 | Outpatient (REF) | payer MEDICARE, MEDICAID | LOC: SKLAB4 13:27 | DX: R06.2 Wheezing (principal); R92.8 Other abnormal and inconclusive findings on diagnostic imaging of breast ==

== ENCOUNTER → 2017-10-02 | Outpatient (REF) | payer MEDICARE ==
[2017-10-02 14:12] LABS: HEMATOCRIT 34.4 % (42.0-52.0); HEMOGLOBIN 10.8 g/dl (13.5-17.5); MEAN CORPUSCULAR HEMOGLOBIN 30.1 pg (27.0-33.0); MEAN CORPUSCULAR HGB CONC 31.4 g/dl (32.0-36.5); MEAN CORPUSCULAR VOLUME 95.8 fl (80.0-96.0); RED BLOOD COUNT 3.59 10^6/uL (4.30-6.10); RED CELL DISTRIBUTION WIDTH 15.2 % (11.5-14.5); WHITE BLOOD COUNT 6.3 10^3/uL (4.0-10.0)
[2017-10-02 14:15] LABS: PLATELET COUNT, AUTOMATED 67 10^3/uL (150-450); POS COUNT POS FLAG
[2017-10-02 14:16] LABS: IMMATURE PLATELET FRACTION % 6.9 % (0.0-10.9); PLATELET F 4.1
[2017-10-02 14:56] LABS: ANION GAP 9 MEQ/L (8-16); BLOOD UREA NITROGEN 35 MG/DL (7-18); CARBON DIOXIDE LEVEL 27 MEQ/L (21-32); CHLORIDE LEVEL 102 MEQ/L (98-107); CREATININE FOR GFR 3.71 MG/DL (0.70-1.30); GLOMERULAR FILTRATION RATE 17.4 (>49); GLUCOSE, FASTING 265 MG/DL (70-100); MAGNESIUM LEVEL 2.4 MG/DL (1.8-2.4); POTASSIUM SERUM 4.7 MEQ/L (3.5-5.1); SODIUM LEVEL 138 MEQ/L (136-145)
[2017-10-02 16:27] LABS: ESTIMATED AVERAGE GLUCOSE 183 MG/DL (60-110)
== END ==
LOC: SKLAB4 13:17
DX: M62.81 Muscle weakness (generalized) (principal); Z79.899 Other long term (current) drug therapy
CPT/HCPCS: 93005

== ENCOUNTER 2017-10-06 13:56 | Emergency (ER) | payer MEDICARE ==
[2017-10-06 16:02] LABS: BASO % 0.6 % (0.0-1.0); EOS # 0.1 10^3/uL (0.0-0.50); EOS % 2.3 % (0.0-3.0); HEMATOCRIT 33.8 % (42.0-52.0); HEMOGLOBIN 10.7 g/dl (13.5-17.5); IMMATURE GRANULOCYTE % 0.2 % (0-3.0); LYMPH # 0.3 10^3/uL (1.5-4.5); LYMPH % 5.8 % (24.0-44.0); MEAN CORPUSCULAR HEMOGLOBIN 30.4 pg (27.0-33.0); MEAN CORPUSCULAR HGB CONC 31.7 g/dl (32.0-36.5); MONO # 0.4 10^3/uL (0.0-0.8); MONO % 7.9 % (0.0-5.0); NEUTROPHILS % 83.2 % (36.0-66.0); PLATELET COUNT, AUTOMATED 130 10^3/uL (150-450); RED BLOOD COUNT 3.52 10^6/uL (4.30-6.10); RED CELL DISTRIBUTION WIDTH 15.5 % (11.5-14.5); WHITE BLOOD COUNT 4.8 10^3/uL (4.0-10.0)
[2017-10-06 16:11] LABS: ABG BASE EXCESS 2.6 (-2.0-2.0); ABG HCO3 28.1 MEQ/L (22.0-26.0); ABG PARTIAL PRESSURE CO2 47.4 mmHg (35.0-45.0); ABG PARTIAL PRESSURE O2 90.3 mmHg (75.0-100.0); ABG STANDARD HCO3 26.8 MEQ/L (22.0-26.0); ABG TOTAL CO2 29.6 MEQ/L (23.0-31.0); ABG pH (ARTERIAL) 7.391 UNITS (7.350-7.450)
[2017-10-06 16:19] LABS: INR 1.71; PROTHROMBIN TIME 20.6 SECONDS (12.4-14.5)
[2017-10-06 16:27] LABS: ALBUMIN 2.6 GM/DL (3.2-5.2); ALBUMIN/GLOBULIN RATIO 0.79 (1.00-1.93); ALKALINE PHOSPHATASE 183 U/L (45-117); ALT/SGPT 15 U/L (12-78); ANION GAP 7 MEQ/L (8-16); AST/SGOT 14 U/L (7-37); BILIRUBIN,DIRECT 0.5 MG/DL (0.0-0.2); BILIRUBIN,TOTAL 0.7 MG/DL (0.2-1.0); BLOOD UREA NITROGEN 19 MG/DL (7-18); CALCIUM LEVEL 8.2 MG/DL (8.8-10.2); CARBON DIOXIDE LEVEL 30 MEQ/L (21-32); CHLORIDE LEVEL 103 MEQ/L (98-107); CPK CREATINE PHOSPHOKINASE 58 U/L (39-308); CREATININE FOR GFR 3.18 MG/DL (0.70-1.30); GLOMERULAR FILTRATION RATE 20.8 (>49); GLUCOSE, FASTING 91 MG/DL (70-100); POTASSIUM SERUM 4.4 MEQ/L (3.5-5.1); SODIUM LEVEL 140 MEQ/L (136-145); TOTAL PROTEIN 5.9 GM/DL (6.4-8.2)
[2017-10-06 16:38] LABS: POSITIVE DIFF POS FLAG
[2017-10-06 16:40] LABS: CK-MB VALUE MASS 3.6 NG/ML (<3.6)
[2017-10-06 16:45] LABS: NT-PRO BNP > 175000 PG/ML (<125)
[2017-10-06 16:48] LABS: LACTIC ACID SEPSIS PROTOCOL 2.3 MMOL/L (0.4-2.0)
== END 2017-10-06 18:05 | disposition home or self-care (01) ==
LOC: M ED 13:56
DX: R06.02 Shortness of breath (principal); I50.9 Heart failure, unspecified; N18.6 End stage renal disease; I13.2 Hypertensive heart and chronic kidney disease with heart failure and with stage 5 chronic kidney disease, or end stage renal disease; I25.2 Old myocardial infarction; Z88.8 Allergy status to other drugs, medicaments and biological substances; Z79.01 Long term (current) use of anticoagulants; Z79.899 Other long term (current) drug therapy; Z79.82 Long term (current) use of aspirin; Z79.4 Long term (current) use of insulin; Z87.891 Personal history of nicotine dependence; Z98.890 Other specified postprocedural states

== ENCOUNTER 2017-10-21 16:40 | Inpatient (IN) | payer MEDICARE, MEDICAID ==
[2017-10-21 17:32] LABS: BASO # 0.1 10^3/uL (0.0-0.2); BASO % 0.8 % (0.0-1.0); EOS # 0.1 10^3/uL (0.0-0.50); EOS % 1.3 % (0.0-3.0); HEMATOCRIT 35.4 % (42.0-52.0); HEMOGLOBIN 10.5 g/dl (13.5-17.5); IMMATURE GRANULOCYTE % 0.5 % (0-3.0); LYMPH # 0.4 10^3/uL (1.5-4.5); LYMPH % 6.4 % (24.0-44.0); MEAN CORPUSCULAR HEMOGLOBIN 29.5 pg (27.0-33.0); MEAN CORPUSCULAR HGB CONC 29.7 g/dl (32.0-36.5); MEAN CORPUSCULAR VOLUME 99.4 fl (80.0-96.0); MONO # 0.6 10^3/uL (0.0-0.8); MONO % 10.1 % (0.0-5.0); NEUTROPHILS # 4.9 10^3/uL (1.8-7.7); NEUTROPHILS % 80.9 % (36.0-66.0); PLATELET COUNT, AUTOMATED 153 10^3/uL (150-450); RED BLOOD COUNT 3.56 10^6/uL (4.30-6.10); RED CELL DISTRIBUTION WIDTH 15.3 % (11.5-14.5); WHITE BLOOD COUNT 6.1 10^3/uL (4.0-10.0)
[2017-10-21 17:45] LABS: AMMONIA 24 uMOL/L (<32)
[2017-10-21 17:46] LABS: ABG BASE EXCESS 3.5 (-2.0-2.0); ABG O2 SATURATION 96.4 % (95.0-99.0); ABG PARTIAL PRESSURE O2 84.9 mmHg (75.0-100.0); ABG STANDARD HCO3 27.6 MEQ/L (22.0-26.0); ABG TOTAL CO2 32.9 MEQ/L (23.0-31.0); ABG pH (ARTERIAL) 7.318 UNITS (7.350-7.450)
[2017-10-21 17:49] LABS: ABG PARTIAL PRESSURE CO2 61.9 mmHg (35.0-45.0)
[2017-10-21 17:54] LABS: ALBUMIN 2.7 GM/DL (3.2-5.2); ALBUMIN/GLOBULIN RATIO 0.75 (1.00-1.93); ALKALINE PHOSPHATASE 208 U/L (45-117); ALT/SGPT 12 U/L (12-78); ANION GAP 5 MEQ/L (8-16); AST/SGOT 13 U/L (7-37); BILIRUBIN,DIRECT 0.3 MG/DL (0.0-0.2); BILIRUBIN,TOTAL 0.8 MG/DL (0.2-1.0); BLOOD UREA NITROGEN 9 MG/DL (7-18); CALCIUM LEVEL 8.6 MG/DL (8.8-10.2); CARBON DIOXIDE LEVEL 31 MEQ/L (21-32); CHLORIDE LEVEL 104 MEQ/L (98-107); CREATININE FOR GFR 2.31 MG/DL (0.70-1.30); GLUCOSE, FASTING 128 MG/DL (70-100); POTASSIUM SERUM 4.1 MEQ/L (3.5-5.1); SODIUM LEVEL 140 MEQ/L (136-145); TOTAL PROTEIN 6.3 GM/DL (6.4-8.2)
[2017-10-21] MEDS ORDERED: ACETAMINOPHEN TAB 650MG DOSE (2X325MG) PO (21:30)
[2017-10-21] MEDS ORDERED: NITROGLYCERIN 0.4 MG SUBL TABLET SL (21:30)
[2017-10-21] MEDS ORDERED: POLYVINYL ALCOHOL OPHTH SOLN 15 ML(LIQUITEARS) OU (21:30)
[2017-10-21] MEDS ORDERED: IPRATROPIUM 0.5MG/ALBUTEROL 2.5MG INH SOL UD 3ML (DUONEB)(J7620) INH (21:30)
[2017-10-21] MEDS: SYMBICORT 160/4.5MCG INHALER 6GM INH (22:01)
[2017-10-21 23:46] LABS: BEDSIDE GLUCOSE 109 MG/DL (80-115)
[2017-10-21] MEDS: CLOPIDOGREL 75 MG TAB PO (23:53)
[2017-10-21] MEDS: SENOKOT S TAB PO (23:53)
[2017-10-21] MEDS: APIXABAN 2.5 MG TAB (ELIQUIS) PO (23:54)
[2017-10-21] MEDS: traZODone 100 MG TAB PO (23:54)
[2017-10-21] MEDS: SIMETHICONE 80 MG CHEW TAB PO (23:54)
[2017-10-21] MEDS: GABAPENTIN 300 MG CAP PO (23:54)
[2017-10-21] MEDS: POLYVINYL ALCOHOL OPHTH SOLN 15 ML(LIQUITEARS) OU (23:55)
[2017-10-22] MEDS ORDERED: GLUCAGON FOR INJ 1 MG VIAL (J1610) SC (00:15)
[2017-10-22] MEDS ORDERED: PILL CRUSHER/CUTTER 1 EACH XX (00:15)
[2017-10-22] MEDS ORDERED: GLUCOSE 4 GM CHEW TABLET PO (00:15)
[2017-10-22] MEDS ORDERED: DEXTROSE 50% 50 ML SYRINGE IV (00:15)
[2017-10-22] MEDS: METOPROLOL SUCC *XL* 25MG TAB (TopROL *XL*) PO ×2 (00:39→20:30)
[2017-10-22 05:25] LABS: ANION GAP 4 MEQ/L (8-16); BLOOD UREA NITROGEN 11 MG/DL (7-18); CALCIUM LEVEL 8.4 MG/DL (8.8-10.2); CARBON DIOXIDE LEVEL 31 MEQ/L (21-32); CHLORIDE LEVEL 105 MEQ/L (98-107); CREATININE FOR GFR 2.85 MG/DL (0.70-1.30); GLOMERULAR FILTRATION RATE 23.6 (>49); GLUCOSE, FASTING 203 MG/DL (70-100); POTASSIUM SERUM 3.8 MEQ/L (3.5-5.1); SODIUM LEVEL 140 MEQ/L (136-145)
[2017-10-22] MEDS: SYMBICORT 160/4.5MCG INHALER 6GM INH ×2 (07:29→20:26)
[2017-10-22] MEDS: (RENVELA) SEVELAMER **CARBONate** 800 MG TAB PO ×3 (07:52→17:11)
[2017-10-22] MEDS: HumaLOG INSULIN (NovoLOG) PER UNIT SC ×4 (07:52→20:23)
[2017-10-22] MEDS: MIDODRINE 5 MG TAB PO ×3 (07:52→20:30)
[2017-10-22] MEDS: ASPIRIN 81 MG ENTERIC TAB PO (10:00)
[2017-10-22] MEDS: SIMETHICONE 80 MG CHEW TAB PO ×3 (10:01→20:30)
[2017-10-22] MEDS: SENOKOT S TAB PO ×2 (10:01→20:30)
[2017-10-22] MEDS: APIXABAN 2.5 MG TAB (ELIQUIS) PO ×2 (10:01→20:30)
[2017-10-22] MEDS: FAMOTIDINE 20 MG TAB PO (10:01)
[2017-10-22] MEDS: POLYVINYL ALCOHOL OPHTH SOLN 15 ML(LIQUITEARS) OU ×2 (10:07→20:31)
[2017-10-22 12:49] LABS: BEDSIDE GLUCOSE 213 MG/DL (80-115)
[2017-10-22 16:47] LABS: BEDSIDE GLUCOSE 152 MG/DL (80-115)
[2017-10-22 17:04] LABS: MAGNESIUM LEVEL 2.4 MG/DL (1.8-2.4)
[2017-10-22 20:18] LABS: BEDSIDE GLUCOSE 110 MG/DL (80-115)
[2017-10-22] MEDS: GABAPENTIN 100 MG CAP PO (20:30)
[2017-10-22] MEDS: CLOPIDOGREL 75 MG TAB PO (20:30)
[2017-10-23] MEDS: FLEET ENEMA PR (01:53)
[2017-10-23 08:02] LABS: ANION GAP 7 MEQ/L (8-16); BLOOD UREA NITROGEN 19 MG/DL (7-18); CALCIUM LEVEL 8.9 MG/DL (8.8-10.2); CARBON DIOXIDE LEVEL 30 MEQ/L (21-32); CHLORIDE LEVEL 103 MEQ/L (98-107); GLUCOSE, FASTING 109 MG/DL (70-100); POTASSIUM SERUM 3.9 MEQ/L (3.5-5.1); SODIUM LEVEL 140 MEQ/L (136-145)
[2017-10-23] MEDS: ASPIRIN 81 MG ENTERIC TAB PO (09:25)
[2017-10-23] MEDS: APIXABAN 2.5 MG TAB (ELIQUIS) PO ×2 (09:25→20:42)
[2017-10-23] MEDS: SENOKOT S TAB PO ×2 (09:25→20:42)
[2017-10-23] MEDS: SIMETHICONE 80 MG CHEW TAB PO ×3 (09:25→20:41)
[2017-10-23] MEDS: (RENVELA) SEVELAMER **CARBONate** 800 MG TAB PO ×3 (09:25→18:24)
[2017-10-23] MEDS: FAMOTIDINE 20 MG TAB PO (09:25)
[2017-10-23] MEDS: POLYVINYL ALCOHOL OPHTH SOLN 15 ML(LIQUITEARS) OU ×2 (09:26→21:29)
[2017-10-23] MEDS: MIDODRINE 5 MG TAB PO ×3 (09:26→20:41)
[2017-10-23] MEDS: HumaLOG INSULIN (NovoLOG) PER UNIT SC ×4 (09:30→20:55)
[2017-10-23] MEDS: SYMBICORT 160/4.5MCG INHALER 6GM INH ×2 (09:44→21:02)
[2017-10-23 12:41] LABS: BEDSIDE GLUCOSE 145 MG/DL (80-115)
[2017-10-23 13:36] LABS: BASO # 0.1 10^3/uL (0.0-0.2); BASO % 1.3 % (0.0-1.0); EOS # 0.1 10^3/uL (0.0-0.50); EOS % 1.1 % (0.0-3.0); HEMATOCRIT 37.1 % (42.0-52.0); IMMATURE GRANULOCYTE % 0.2 % (0-3.0); LYMPH # 0.3 10^3/uL (1.5-4.5); LYMPH % 5.3 % (24.0-44.0); MEAN CORPUSCULAR HEMOGLOBIN 29.4 pg (27.0-33.0); MEAN CORPUSCULAR HGB CONC 29.6 g/dl (32.0-36.5); MEAN CORPUSCULAR VOLUME 99.2 fl (80.0-96.0); MONO # 0.5 10^3/uL (0.0-0.8); MONO % 8.7 % (0.0-5.0); NEUTROPHILS # 5.2 10^3/uL (1.8-7.7); NEUTROPHILS % 83.4 % (36.0-66.0); PLATELET COUNT, AUTOMATED 150 10^3/uL (150-450); RED BLOOD COUNT 3.74 10^6/uL (4.30-6.10); RED CELL DISTRIBUTION WIDTH 15.3 % (11.5-14.5); WHITE BLOOD COUNT 6.2 10^3/uL (4.0-10.0)
[2017-10-23 17:14] LABS: BEDSIDE GLUCOSE 156 MG/DL (80-115)
[2017-10-23] MEDS: ONDANSETRON 4MG/2ML VIAL (J2405) IV (17:31)
[2017-10-23 17:37] LABS: MAGNESIUM LEVEL 2.4 MG/DL (1.8-2.4)
[2017-10-23 20:34] LABS: BEDSIDE GLUCOSE 138 MG/DL (80-115)
[2017-10-23] MEDS: CLOPIDOGREL 75 MG TAB PO (20:41)
[2017-10-23] MEDS: GABAPENTIN 100 MG CAP PO (20:41)
[2017-10-23] MEDS: METOPROLOL SUCC *XL* 25MG TAB (TopROL *XL*) PO (20:44)
[2017-10-24 05:57] LABS: BASO # 0.1 10^3/uL (0.0-0.2); BASO % 1.1 % (0.0-1.0); EOS # 0.1 10^3/uL (0.0-0.50); EOS % 1.1 % (0.0-3.0); HEMATOCRIT 40.1 % (42.0-52.0); HEMOGLOBIN 12.1 g/dl (13.5-17.5); IMMATURE GRANULOCYTE % 0.4 % (0-3.0); LYMPH # 0.5 10^3/uL (1.5-4.5); LYMPH % 6.2 % (24.0-44.0); MEAN CORPUSCULAR HEMOGLOBIN 29.7 pg (27.0-33.0); MEAN CORPUSCULAR HGB CONC 30.2 g/dl (32.0-36.5); MEAN CORPUSCULAR VOLUME 98.3 fl (80.0-96.0); MONO # 0.7 10^3/uL (0.0-0.8); MONO % 8.9 % (0.0-5.0); NEUTROPHILS # 6.2 10^3/uL (1.8-7.7); NEUTROPHILS % 82.3 % (36.0-66.0); PLATELET COUNT, AUTOMATED 184 10^3/uL (150-450); RED BLOOD COUNT 4.08 10^6/uL (4.30-6.10); RED CELL DISTRIBUTION WIDTH 15.2 % (11.5-14.5); WHITE BLOOD COUNT 7.5 10^3/uL (4.0-10.0)
[2017-10-24] MEDS: FAMOTIDINE 20 MG TAB PO (06:24)
[2017-10-24] MEDS: ASPIRIN 81 MG ENTERIC TAB PO (06:24)
[2017-10-24] MEDS: APIXABAN 2.5 MG TAB (ELIQUIS) PO ×2 (06:24→21:25)
[2017-10-24] MEDS: SIMETHICONE 80 MG CHEW TAB PO ×3 (06:25→21:24)
[2017-10-24] MEDS: SENOKOT S TAB PO ×2 (06:25→21:25)
[2017-10-24] MEDS: (RENVELA) SEVELAMER **CARBONate** 800 MG TAB PO ×3 (06:25→18:31)
[2017-10-24] MEDS: POLYVINYL ALCOHOL OPHTH SOLN 15 ML(LIQUITEARS) OU ×2 (06:26→21:26)
[2017-10-24 06:28] LABS: ALBUMIN 2.7 GM/DL (3.2-5.2); ALBUMIN/GLOBULIN RATIO 0.77 (1.00-1.93); ALKALINE PHOSPHATASE 192 U/L (45-117); ALT/SGPT 11 U/L (12-78); ANION GAP 7 MEQ/L (8-16); AST/SGOT 13 U/L (7-37); BILIRUBIN,TOTAL 0.9 MG/DL (0.2-1.0); BLOOD UREA NITROGEN 25 MG/DL (7-18); CALCIUM LEVEL 9.2 MG/DL (8.8-10.2); CARBON DIOXIDE LEVEL 29 MEQ/L (21-32); CHLORIDE LEVEL 103 MEQ/L (98-107); CREATININE FOR GFR 4.36 MG/DL (0.70-1.30); GLOMERULAR FILTRATION RATE 14.4 (>49); GLUCOSE, FASTING 113 MG/DL (70-100); MAGNESIUM LEVEL 2.4 MG/DL (1.8-2.4); POTASSIUM SERUM 4.6 MEQ/L (3.5-5.1); SODIUM LEVEL 139 MEQ/L (136-145); TOTAL PROTEIN 6.2 GM/DL (6.4-8.2)
[2017-10-24] MEDS: SYMBICORT 160/4.5MCG INHALER 6GM INH ×2 (07:19→20:26)
[2017-10-24] MEDS: HumaLOG INSULIN (NovoLOG) PER UNIT SC ×4 (07:30→21:00)
[2017-10-24] MEDS: MIDODRINE 5 MG TAB PO ×3 (07:56→21:25)
[2017-10-24 13:24] LABS: BEDSIDE GLUCOSE 115 MG/DL (80-115)
[2017-10-24] MEDS: ONDANSETRON 4MG/2ML VIAL (J2405) IV (16:08)
[2017-10-24 17:28] LABS: BEDSIDE GLUCOSE 151 MG/DL (80-115)
[2017-10-24] MEDS: GABAPENTIN 100 MG CAP PO (21:24)
[2017-10-24] MEDS: CLOPIDOGREL 75 MG TAB PO (21:25)
[2017-10-24] MEDS: METOPROLOL SUCC *XL* 25MG TAB (TopROL *XL*) PO (21:25)
[2017-10-24 21:47] LABS: BEDSIDE GLUCOSE 157 MG/DL (80-115)
[2017-10-25] MEDS: FLEET ENEMA PR (02:58)
[2017-10-25 06:01] LABS: BASO # 0.1 10^3/uL (0.0-0.2); BASO % 1.3 % (0.0-1.0); EOS # 0.1 10^3/uL (0.0-0.50); EOS % 1.1 % (0.0-3.0); HEMATOCRIT 37.7 % (42.0-52.0); HEMOGLOBIN 11.2 g/dl (13.5-17.5); IMMATURE GRANULOCYTE % 0.3 % (0-3.0); LYMPH # 0.4 10^3/uL (1.5-4.5); MEAN CORPUSCULAR HEMOGLOBIN 29.2 pg (27.0-33.0); MEAN CORPUSCULAR HGB CONC 29.7 g/dl (32.0-36.5); MEAN CORPUSCULAR VOLUME 98.2 fl (80.0-96.0); MONO # 0.6 10^3/uL (0.0-0.8); NEUTROPHILS # 5.2 10^3/uL (1.8-7.7); NEUTROPHILS % 81.3 % (36.0-66.0); PLATELET COUNT, AUTOMATED 161 10^3/uL (150-450); RED BLOOD COUNT 3.84 10^6/uL (4.30-6.10); WHITE BLOOD COUNT 6.4 10^3/uL (4.0-10.0)
[2017-10-25 06:26] LABS: ALBUMIN 2.5 GM/DL (3.2-5.2); ALBUMIN/GLOBULIN RATIO 0.71 (1.00-1.93); ALKALINE PHOSPHATASE 164 U/L (45-117); ALT/SGPT 8 U/L (12-78); ANION GAP 8 MEQ/L (8-16); AST/SGOT 8 U/L (7-37); BILIRUBIN,TOTAL 0.8 MG/DL (0.2-1.0); BLOOD UREA NITROGEN 16 MG/DL (7-18); CALCIUM LEVEL 9.1 MG/DL (8.8-10.2); CARBON DIOXIDE LEVEL 30 MEQ/L (21-32); CHLORIDE LEVEL 104 MEQ/L (98-107); CREATININE FOR GFR 3.25 MG/DL (0.70-1.30); GLOMERULAR FILTRATION RATE 20.2 (>49); GLUCOSE, FASTING 157 MG/DL (70-100); MAGNESIUM LEVEL 2.4 MG/DL (1.8-2.4); POTASSIUM SERUM 4.1 MEQ/L (3.5-5.1); SODIUM LEVEL 142 MEQ/L (136-145)
[2017-10-25] MEDS: SYMBICORT 160/4.5MCG INHALER 6GM INH (08:47)
[2017-10-25] MEDS: SIMETHICONE 80 MG CHEW TAB PO (09:31)
[2017-10-25] MEDS: ASPIRIN 81 MG ENTERIC TAB PO (09:31)
[2017-10-25] MEDS: APIXABAN 2.5 MG TAB (ELIQUIS) PO (09:31)
[2017-10-25] MEDS: FAMOTIDINE 20 MG TAB PO (09:32)
[2017-10-25] MEDS: METOPROLOL TART 12.5 MG PER 1/2 TAB PO (09:32)
[2017-10-25] MEDS: SENOKOT S TAB PO (09:32)
[2017-10-25] MEDS: (RENVELA) SEVELAMER **CARBONate** 800 MG TAB PO (09:32)
[2017-10-25] MEDS: MIDODRINE 5 MG TAB PO (09:32)
[2017-10-25] MEDS: POLYVINYL ALCOHOL OPHTH SOLN 15 ML(LIQUITEARS) OU (09:33)
[2017-10-25] MEDS: HumaLOG INSULIN (NovoLOG) PER UNIT SC (09:34)
[2017-10-25] MEDS ORDERED: GABAPENTIN 100 MG CAP PO (21:00)
== END 2017-10-25 12:00 | DRG 91 ==
LOC: M MSPAV 10-24 15:21 → M ED 16:40 → M ED INP 21:21 → M PCU 23:20
PROC: 5A1D70Z Performance of Urinary Filtration, Intermittent, Less than 6 Hours Per Day (ICD-10-PCS; principal; 2017-10-24)
DX: G92 Toxic encephalopathy (principal); N18.6 End stage renal disease; I13.2 Hypertensive heart and chronic kidney disease with heart failure and with stage 5 chronic kidney disease, or end stage renal disease; I50.22 Chronic systolic (congestive) heart failure; J96.11 Chronic respiratory failure with hypoxia; N25.81 Secondary hyperparathyroidism of renal origin; I48.2 Chronic atrial fibrillation; E11.22 Type 2 diabetes mellitus with diabetic chronic kidney disease; E11.51 Type 2 diabetes mellitus with diabetic peripheral angiopathy without gangrene; I25.10 Atherosclerotic heart disease of native coronary artery without angina pectoris; G47.33 Obstructive sleep apnea (adult) (pediatric); T43.215A Adverse effect of selective serotonin and norepinephrine reuptake inhibitors, initial encounter; D63.1 Anemia in chronic kidney disease; J44.9 Chronic obstructive pulmonary disease, unspecified; K21.9 Gastro-esophageal reflux disease without esophagitis; I27.20 Pulmonary hypertension, unspecified; I25.5 Ischemic cardiomyopathy; R42 Dizziness and giddiness; R00.1 Bradycardia, unspecified; I95.1 Orthostatic hypotension; Z86.73 Personal history of transient ischemic attack (TIA), and cerebral infarction without residual deficits; Z95.5 Presence of coronary angioplasty implant and graft; Z99.2 Dependence on renal dialysis; Z79.01 Long term (current) use of anticoagulants; Z79.4 Long term (current) use of insulin; Z79.899 Other long term (current) drug therapy; Z79.82 Long term (current) use of aspirin; Z88.8 Allergy status to other drugs, medicaments and biological substances; Z89.611 Acquired absence of right leg above knee; Z89.512 Acquired absence of left leg below knee; Z87.891 Personal history of nicotine dependence; Z99.81 Dependence on supplemental oxygen

== ENCOUNTER → 2017-10-23 | Outpatient (REF) | LOC: SKLAB4 13:34 | DX: K74.60 Unspecified cirrhosis of liver (principal); R18.8 Other ascites ==

== ENCOUNTER 2017-11-09 22:55 | Inpatient (IN) | payer MEDICARE, MEDICAID ==
[2017-11-09 21:18] LABS: BASO % 0.4 % (0.0-1.0); EOS # 0.1 10^3/uL (0.0-0.50); EOS % 1.5 % (0.0-3.0); HEMATOCRIT 37.1 % (42.0-52.0); HEMOGLOBIN 11.6 g/dl (13.5-17.5); IMMATURE GRANULOCYTE % 0.3 % (0-3.0); LYMPH # 0.3 10^3/uL (1.5-4.5); LYMPH % 4.1 % (24.0-44.0); MEAN CORPUSCULAR HEMOGLOBIN 29.6 pg (27.0-33.0); MEAN CORPUSCULAR HGB CONC 31.3 g/dl (32.0-36.5); MEAN CORPUSCULAR VOLUME 94.6 fl (80.0-96.0); MONO # 0.5 10^3/uL (0.0-0.8); MONO % 6.7 % (0.0-5.0); NEUTROPHILS # 6.5 10^3/uL (1.8-7.7); PLATELET COUNT, AUTOMATED 118 10^3/uL (150-450); RED BLOOD COUNT 3.92 10^6/uL (4.30-6.10); RED CELL DISTRIBUTION WIDTH 15.9 % (11.5-14.5); WHITE BLOOD COUNT 7.5 10^3/uL (4.0-10.0)
[2017-11-09 21:30] LABS: PARTIAL THROMBOPLASTIN TIME 35.4 SECONDS (25.4-37.6)
[2017-11-09 21:54] LABS: ANION GAP 9 MEQ/L (8-16); BLOOD UREA NITROGEN 11 MG/DL (7-18); CALCIUM LEVEL 8.4 MG/DL (8.8-10.2); CARBON DIOXIDE LEVEL 29 MEQ/L (21-32); CHLORIDE LEVEL 104 MEQ/L (98-107); CPK CREATINE PHOSPHOKINASE 60 U/L (39-308); GLOMERULAR FILTRATION RATE 27.4 (>49); GLUCOSE, FASTING 196 MG/DL (70-100); POTASSIUM SERUM 3.6 MEQ/L (3.5-5.1); SODIUM LEVEL 142 MEQ/L (136-145)
[2017-11-09 21:57] LABS: INR 1.65; PROTHROMBIN TIME 19.8 SECONDS (12.1-14.4)
[2017-11-09] MEDS: LACTULOSE 20 GM/30 ML SYRUP UD PO (22:37)
[2017-11-10 00:38] LABS: CK-MB VALUE MASS 6.6 NG/ML (<3.6); CPK CREATINE PHOSPHOKINASE 88 U/L (39-308); TROPONIN I 0.83 NG/ML (< 0.10)
[2017-11-10] MEDS ORDERED: GLUCOSE 4 GM CHEW TABLET PO (02:00)
[2017-11-10] MEDS ORDERED: GLUCAGON FOR INJ 1 MG VIAL (J1610) SC (02:00)
[2017-11-10] MEDS ORDERED: DEXTROSE 50% 50 ML SYRINGE IV (02:00)
[2017-11-10] MEDS ORDERED: PROCHLORPERAZINE 5 MG TAB (S0183) PO (02:30)
[2017-11-10] MEDS ORDERED: NITROGLYCERIN 0.4 MG SUBL TABLET SL (02:30)
[2017-11-10] MEDS ORDERED: BISACODYL 10 MG SUPP PR (02:30)
[2017-11-10] MEDS ORDERED: ACETAMINOPHEN 650 MG SUPP PR (02:30)
[2017-11-10] MEDS ORDERED: POLYVINYL ALCOHOL OPHTH SOLN 15 ML(LIQUITEARS) OU (02:30)
[2017-11-10] MEDS ORDERED: ACETAMINOPHEN 325 MG TAB PO (02:30)
[2017-11-10] MEDS: IBUPROFEN 600 MG TAB PO (02:50)
[2017-11-10] MEDS: IPRATROPIUM 0.5MG/ALBUTEROL 2.5MG INH SOL UD 3ML (DUONEB)(J7620) INH ×4 (07:40→20:00)
[2017-11-10] MEDS: SYMBICORT 160/4.5MCG INHALER 6GM INH ×2 (07:40→20:04)
[2017-11-10] MEDS: MIDODRINE 5 MG TAB PO ×3 (08:00→17:58)
[2017-11-10] MEDS: ASPIRIN 81 MG ENTERIC TAB PO (08:19)
[2017-11-10] MEDS: HumaLOG INSULIN (NovoLOG) PER UNIT SC ×4 (08:19→20:06)
[2017-11-10] MEDS: APIXABAN 2.5 MG TAB (ELIQUIS) PO ×2 (08:19→20:13)
[2017-11-10] MEDS: FAMOTIDINE 20 MG TAB PO (08:19)
[2017-11-10] MEDS: POLYVINYL ALCOHOL OPHTH SOLN 15 ML(LIQUITEARS) OU ×2 (08:19→20:10)
[2017-11-10] MEDS: guaiFENesin ER 600 MG TAB PO ×2 (08:21→20:09)
[2017-11-10] MEDS: SENOKOT S TAB PO ×2 (08:21→20:10)
[2017-11-10] MEDS: PANTOPRAZOLE 40MG TAB (PROTONIX) PO (08:21)
[2017-11-10 08:34] LABS: HEMATOCRIT 36.4 % (42.0-52.0); HEMOGLOBIN 11.4 g/dl (13.5-17.5); MEAN CORPUSCULAR HEMOGLOBIN 29.8 pg (27.0-33.0); MEAN CORPUSCULAR HGB CONC 31.3 g/dl (32.0-36.5); MEAN CORPUSCULAR VOLUME 95.3 fl (80.0-96.0); PLATELET COUNT, AUTOMATED 110 10^3/uL (150-450); RED BLOOD COUNT 3.82 10^6/uL (4.30-6.10); WHITE BLOOD COUNT 5.7 10^3/uL (4.0-10.0)
[2017-11-10 08:47] LABS: BEDSIDE GLUCOSE 155 MG/DL (80-115)
[2017-11-10 08:50] LABS: ANION GAP 11 MEQ/L (8-16); BLOOD UREA NITROGEN 13 MG/DL (7-18); CALCIUM LEVEL 8.1 MG/DL (8.8-10.2); CARBON DIOXIDE LEVEL 28 MEQ/L (21-32); CHLORIDE LEVEL 104 MEQ/L (98-107); CREATININE FOR GFR 2.75 MG/DL (0.70-1.30); GLOMERULAR FILTRATION RATE 24.5 (>49); GLUCOSE, FASTING 161 MG/DL (70-100); POTASSIUM SERUM 3.5 MEQ/L (3.5-5.1); SODIUM LEVEL 143 MEQ/L (136-145)
[2017-11-10 08:52] LABS: CPK CREATINE PHOSPHOKINASE 58 U/L (39-308); TROPONIN I 0.85 NG/ML (< 0.10)
[2017-11-10 08:53] LABS: CK-MB VALUE MASS 6.2 NG/ML (<3.6); MB/CK RELATIVE INDEX 10.68 (< OR =4)
[2017-11-10] MEDS: SIMETHICONE 80 MG CHEW TAB PO ×3 (09:59→17:56)
[2017-11-10 12:03] LABS: BEDSIDE GLUCOSE 122 MG/DL (80-115)
[2017-11-10] MEDS: (RENVELA) SEVELAMER **CARBONate** 800 MG TAB PO ×2 (12:30→17:56)
[2017-11-10] MEDS: ACETAMINOPHEN TAB 650MG DOSE (2X325MG) PO ×2 (15:44→21:27)
[2017-11-10 16:52] LABS: CPK CREATINE PHOSPHOKINASE 58 U/L (39-308); TROPONIN I 0.63 NG/ML (< 0.10)
[2017-11-10 16:53] LABS: CK-MB VALUE MASS 5.7 NG/ML (<3.6); MB/CK RELATIVE INDEX 9.82 (< OR =4)
[2017-11-10 17:13] LABS: BEDSIDE GLUCOSE 128 MG/DL (80-115)
[2017-11-10 20:05] LABS: BEDSIDE GLUCOSE 144 MG/DL (80-115)
[2017-11-10] MEDS: CLOPIDOGREL 75 MG TAB PO (20:10)
[2017-11-10] MEDS: GABAPENTIN 100 MG CAP PO (20:10)
[2017-11-10] MEDS: METOPROLOL SUCC *XL* 25MG TAB (TopROL *XL*) PO (20:10)
[2017-11-10] MEDS: LORazepam 0.5 MG TAB PO (21:27)
[2017-11-11 00:14] LABS: CPK CREATINE PHOSPHOKINASE 63 U/L (39-308); MB/CK RELATIVE INDEX 9.52 (< OR =4); TROPONIN I 0.69 NG/ML (< 0.10)
[2017-11-11] MEDS: LORazepam 0.5 MG TAB PO ×2 (03:04→21:50)
[2017-11-11] MEDS: SYMBICORT 160/4.5MCG INHALER 6GM INH ×2 (07:46→19:39)
[2017-11-11] MEDS: IPRATROPIUM 0.5MG/ALBUTEROL 2.5MG INH SOL UD 3ML (DUONEB)(J7620) INH ×4 (07:46→19:51)
[2017-11-11 08:02] LABS: BEDSIDE GLUCOSE 135 MG/DL (80-115)
[2017-11-11 08:12] LABS: HEMATOCRIT 40.2 % (42.0-52.0); HEMOGLOBIN 12.5 g/dl (13.5-17.5); MEAN CORPUSCULAR HEMOGLOBIN 29.3 pg (27.0-33.0); MEAN CORPUSCULAR HGB CONC 31.1 g/dl (32.0-36.5); MEAN CORPUSCULAR VOLUME 94.4 fl (80.0-96.0); PLATELET COUNT, AUTOMATED 103 10^3/uL (150-450); RED BLOOD COUNT 4.26 10^6/uL (4.30-6.10); RED CELL DISTRIBUTION WIDTH 15.9 % (11.5-14.5)
[2017-11-11] MEDS: HumaLOG INSULIN (NovoLOG) PER UNIT SC ×4 (08:12→21:53)
[2017-11-11] MEDS: ROSUVASTATIN 10 MG TAB (CRESTOR) PO (08:15)
[2017-11-11] MEDS: MIDODRINE 5 MG TAB PO ×3 (08:15→18:06)
[2017-11-11] MEDS: FAMOTIDINE 20 MG TAB PO (08:15)
[2017-11-11] MEDS: POLYVINYL ALCOHOL OPHTH SOLN 15 ML(LIQUITEARS) OU ×2 (08:16→21:51)
[2017-11-11] MEDS: guaiFENesin ER 600 MG TAB PO ×2 (08:16→21:47)
[2017-11-11] MEDS: SENOKOT S TAB PO ×2 (08:16→21:49)
[2017-11-11] MEDS: PANTOPRAZOLE 40MG TAB (PROTONIX) PO (08:16)
[2017-11-11] MEDS: RANOLAZINE 500 MG ER TAB PO ×2 (08:16→21:48)
[2017-11-11] MEDS: ASPIRIN 81 MG ENTERIC TAB PO (08:16)
[2017-11-11] MEDS: APIXABAN 2.5 MG TAB (ELIQUIS) PO ×2 (08:16→21:49)
[2017-11-11 08:27] LABS: ALBUMIN 3.1 GM/DL (3.2-5.2); ALBUMIN/GLOBULIN RATIO 0.97 (1.00-1.93); ALKALINE PHOSPHATASE 183 U/L (45-117); ALT/SGPT 15 U/L (12-78); ANION GAP 10 MEQ/L (8-16); AST/SGOT 12 U/L (7-37); BILIRUBIN,TOTAL 1.2 MG/DL (0.2-1.0); BLOOD UREA NITROGEN 19 MG/DL (7-18); CALCIUM LEVEL 8.2 MG/DL (8.8-10.2); CARBON DIOXIDE LEVEL 29 MEQ/L (21-32); CHLORIDE LEVEL 103 MEQ/L (98-107); CHOLESTEROL LEVEL 117 MG/DL (<200); CHOLESTEROL RISK RATIO 2.017 (<5); GLOMERULAR FILTRATION RATE 19.2 (>49); GLUCOSE, FASTING 146 MG/DL (70-100); HDL CHOLESTEROL 58 MG/DL (>40); LDL CHOLESTEROL 41.2 MG/DL (<100); NON-HDL-C 59 MG/DL; PHOSPHORUS LEVEL 2.9 MG/DL (2.5-4.9); POTASSIUM SERUM 3.6 MEQ/L (3.5-5.1); SODIUM LEVEL 142 MEQ/L (136-145); TOTAL PROTEIN 6.3 GM/DL (6.4-8.2); TRIGLYCERIDES LEVEL 89 MG/DL (<150)
[2017-11-11] MEDS: SIMETHICONE 80 MG CHEW TAB PO ×3 (09:34→18:06)
[2017-11-11] MEDS: (RENVELA) SEVELAMER **CARBONate** 800 MG TAB PO ×3 (09:34→18:06)
[2017-11-11] MEDS: PERCOCET 5MG/325MG TAB PO (10:54)
[2017-11-11] MEDS: ACETAMINOPHEN TAB 650MG DOSE (2X325MG) PO ×2 (15:34→21:53)
[2017-11-11 16:47] LABS: BEDSIDE GLUCOSE 172 MG/DL (80-115)
[2017-11-11] MEDS ORDERED: PILL CRUSHER/CUTTER 1 EACH XX (18:15)
[2017-11-11 20:36] LABS: BEDSIDE GLUCOSE 144 MG/DL (80-115)
[2017-11-11] MEDS: METOPROLOL SUCC *XL* 25MG TAB (TopROL *XL*) PO (21:49)
[2017-11-11] MEDS: CLOPIDOGREL 75 MG TAB PO (21:50)
[2017-11-11] MEDS: GABAPENTIN 100 MG CAP PO (21:50)
[2017-11-12 05:21] LABS: HEMATOCRIT 37.4 % (42.0-52.0); HEMOGLOBIN 11.6 g/dl (13.5-17.5); MEAN CORPUSCULAR HEMOGLOBIN 29.6 pg (27.0-33.0); MEAN CORPUSCULAR VOLUME 95.4 fl (80.0-96.0); PLATELET COUNT, AUTOMATED 114 10^3/uL (150-450); RED BLOOD COUNT 3.92 10^6/uL (4.30-6.10); RED CELL DISTRIBUTION WIDTH 15.9 % (11.5-14.5); WHITE BLOOD COUNT 5.9 10^3/uL (4.0-10.0)
[2017-11-12 05:40] LABS: ALBUMIN 2.8 GM/DL (3.2-5.2); ANION GAP 10 MEQ/L (8-16); BLOOD UREA NITROGEN 16 MG/DL (7-18); CALCIUM LEVEL 8.2 MG/DL (8.8-10.2); CARBON DIOXIDE LEVEL 28 MEQ/L (21-32); CHLORIDE LEVEL 103 MEQ/L (98-107); CREATININE FOR GFR 2.94 MG/DL (0.70-1.30); GLOMERULAR FILTRATION RATE 22.7 (>49); GLUCOSE, FASTING 167 MG/DL (70-100); MAGNESIUM LEVEL 2.1 MG/DL (1.8-2.4); PHOSPHORUS LEVEL 2.7 MG/DL (2.5-4.9); POTASSIUM SERUM 3.7 MEQ/L (3.5-5.1); SODIUM LEVEL 141 MEQ/L (136-145)
[2017-11-12] MEDS: IPRATROPIUM 0.5MG/ALBUTEROL 2.5MG INH SOL UD 3ML (DUONEB)(J7620) INH ×4 (07:13→19:37)
[2017-11-12] MEDS: SYMBICORT 160/4.5MCG INHALER 6GM INH ×2 (07:14→19:36)
[2017-11-12] MEDS: MIDODRINE 5 MG TAB PO ×3 (08:50→18:27)
[2017-11-12] MEDS: guaiFENesin ER 600 MG TAB PO ×2 (08:50→21:06)
[2017-11-12] MEDS: SENOKOT S TAB PO ×2 (08:50→21:06)
[2017-11-12] MEDS: FAMOTIDINE 20 MG TAB PO (08:50)
[2017-11-12] MEDS: ASPIRIN 81 MG ENTERIC TAB PO (08:50)
[2017-11-12] MEDS: HumaLOG INSULIN (NovoLOG) PER UNIT SC ×4 (08:50→21:07)
[2017-11-12] MEDS: APIXABAN 2.5 MG TAB (ELIQUIS) PO ×2 (08:51→21:07)
[2017-11-12] MEDS: POLYVINYL ALCOHOL OPHTH SOLN 15 ML(LIQUITEARS) OU ×2 (08:51→21:07)
[2017-11-12] MEDS: RANOLAZINE 500 MG ER TAB PO ×2 (08:53→21:05)
[2017-11-12] MEDS: PANTOPRAZOLE 40MG TAB (PROTONIX) PO (08:53)
[2017-11-12] MEDS: ROSUVASTATIN 10 MG TAB (CRESTOR) PO (08:53)
[2017-11-12 09:26] LABS: TROPONIN I 0.44 NG/ML (< 0.10)
[2017-11-12 09:28] LABS: CPK CREATINE PHOSPHOKINASE 54 U/L (39-308); MB/CK RELATIVE INDEX 9.25 (< OR =4)
[2017-11-12] MEDS: (RENVELA) SEVELAMER **CARBONate** 800 MG TAB PO ×3 (09:33→18:28)
[2017-11-12] MEDS: SIMETHICONE 80 MG CHEW TAB PO ×3 (10:00→18:27)
[2017-11-12 11:56] LABS: BEDSIDE GLUCOSE 109 MG/DL (80-115)
[2017-11-12 17:10] LABS: BEDSIDE GLUCOSE 100 MG/DL (80-115)
[2017-11-12 20:34] LABS: BEDSIDE GLUCOSE 138 MG/DL (80-115)
[2017-11-12] MEDS: CLOPIDOGREL 75 MG TAB PO (21:05)
[2017-11-12] MEDS: GABAPENTIN 100 MG CAP PO (21:05)
[2017-11-12] MEDS: ACETAMINOPHEN TAB 650MG DOSE (2X325MG) PO (21:06)
[2017-11-12] MEDS: METOPROLOL SUCC *XL* 25MG TAB (TopROL *XL*) PO (21:06)
[2017-11-12] MEDS: LORazepam 0.5 MG TAB PO (21:07)
[2017-11-13] MEDS: ACETAMINOPHEN TAB 650MG DOSE (2X325MG) PO (03:01)
[2017-11-13 05:13] LABS: HEMATOCRIT 36.8 % (42.0-52.0); HEMOGLOBIN 11.5 g/dl (13.5-17.5); MEAN CORPUSCULAR HEMOGLOBIN 29.6 pg (27.0-33.0); MEAN CORPUSCULAR HGB CONC 31.3 g/dl (32.0-36.5); MEAN CORPUSCULAR VOLUME 94.6 fl (80.0-96.0); PLATELET COUNT, AUTOMATED 105 10^3/uL (150-450); RED BLOOD COUNT 3.89 10^6/uL (4.30-6.10); RED CELL DISTRIBUTION WIDTH 15.6 % (11.5-14.5); WHITE BLOOD COUNT 6.7 10^3/uL (4.0-10.0)
[2017-11-13 05:27] LABS: ALBUMIN 2.8 GM/DL (3.2-5.2); ANION GAP 8 MEQ/L (8-16); BLOOD UREA NITROGEN 24 MG/DL (7-18); CALCIUM LEVEL 8.4 MG/DL (8.8-10.2); CARBON DIOXIDE LEVEL 28 MEQ/L (21-32); CHLORIDE LEVEL 103 MEQ/L (98-107); CREATININE FOR GFR 3.69 MG/DL (0.70-1.30); GLOMERULAR FILTRATION RATE 17.5 (>49); GLUCOSE, FASTING 188 MG/DL (70-100); PHOSPHORUS LEVEL 3.2 MG/DL (2.5-4.9); POTASSIUM SERUM 4.2 MEQ/L (3.5-5.1); SODIUM LEVEL 139 MEQ/L (136-145)
[2017-11-13] MEDS: IPRATROPIUM 0.5MG/ALBUTEROL 2.5MG INH SOL UD 3ML (DUONEB)(J7620) INH (08:00)
[2017-11-13] MEDS: SYMBICORT 160/4.5MCG INHALER 6GM INH (08:11)
[2017-11-13] MEDS: HumaLOG INSULIN (NovoLOG) PER UNIT SC (09:17)
[2017-11-13] MEDS: (RENVELA) SEVELAMER **CARBONate** 800 MG TAB PO (09:18)
[2017-11-13] MEDS: guaiFENesin ER 600 MG TAB PO (09:19)
[2017-11-13] MEDS: FAMOTIDINE 20 MG TAB PO (09:19)
[2017-11-13] MEDS: ROSUVASTATIN 10 MG TAB (CRESTOR) PO (09:19)
[2017-11-13] MEDS: MIDODRINE 5 MG TAB PO (09:19)
[2017-11-13] MEDS: RANOLAZINE 500 MG ER TAB PO (09:19)
[2017-11-13] MEDS: APIXABAN 2.5 MG TAB (ELIQUIS) PO (09:19)
[2017-11-13] MEDS: PANTOPRAZOLE 40MG TAB (PROTONIX) PO (09:19)
[2017-11-13] MEDS: SIMETHICONE 80 MG CHEW TAB PO (09:20)
[2017-11-13] MEDS: SENOKOT S TAB PO (09:20)
[2017-11-13] MEDS: POLYVINYL ALCOHOL OPHTH SOLN 15 ML(LIQUITEARS) OU (09:20)
[2017-11-13] MEDS: ASPIRIN 81 MG ENTERIC TAB PO (09:20)
== END 2017-11-13 11:43 | DRG 313 ==
LOC: M ED INP 22:56 → M ICU 11-10 02:38 → M PCU 11-10 15:49 → M ED 22:55
PROC: 5A1D70Z Performance of Urinary Filtration, Intermittent, Less than 6 Hours Per Day (ICD-10-PCS; principal; 2017-11-11)
DX: R07.89 Other chest pain (principal); N18.6 End stage renal disease; I50.22 Chronic systolic (congestive) heart failure; I13.2 Hypertensive heart and chronic kidney disease with heart failure and with stage 5 chronic kidney disease, or end stage renal disease; N25.81 Secondary hyperparathyroidism of renal origin; J96.11 Chronic respiratory failure with hypoxia; E11.51 Type 2 diabetes mellitus with diabetic peripheral angiopathy without gangrene; E11.22 Type 2 diabetes mellitus with diabetic chronic kidney disease; I25.10 Atherosclerotic heart disease of native coronary artery without angina pectoris; E78.5 Hyperlipidemia, unspecified; E11.40 Type 2 diabetes mellitus with diabetic neuropathy, unspecified; I25.5 Ischemic cardiomyopathy; F32.9 Major depressive disorder, single episode, unspecified; F41.9 Anxiety disorder, unspecified; I48.2 Chronic atrial fibrillation; G47.33 Obstructive sleep apnea (adult) (pediatric); J44.9 Chronic obstructive pulmonary disease, unspecified; K21.9 Gastro-esophageal reflux disease without esophagitis; Z90.49 Acquired absence of other specified parts of digestive tract; Z87.891 Personal history of nicotine dependence; Z89.512 Acquired absence of left leg below knee; Z89.611 Acquired absence of right leg above knee; Z88.8 Allergy status to other drugs, medicaments and biological substances; Z95.828 Presence of other vascular implants and grafts; Z95.5 Presence of coronary angioplasty implant and graft; Z99.2 Dependence on renal dialysis; Z99.81 Dependence on supplemental oxygen; Z91.041 Radiographic dye allergy status; Z91.048 Other nonmedicinal substance allergy status; Z79.01 Long term (current) use of anticoagulants; Z79.82 Long term (current) use of aspirin; Z79.02 Long term (current) use of antithrombotics/antiplatelets; Z79.899 Other long term (current) drug therapy; Z86.73 Personal history of transient ischemic attack (TIA), and cerebral infarction without residual deficits; I25.2 Old myocardial infarction; Z98.52 Vasectomy status

== ENCOUNTER 2017-11-16 19:10 | Emergency (ER) | payer MEDICARE, MEDICAID ==
[2017-11-16 20:04] LABS: HEMATOCRIT 39.7 % (42.0-52.0); HEMOGLOBIN 12.6 g/dl (13.5-17.5); MEAN CORPUSCULAR HEMOGLOBIN 30.6 pg (27.0-33.0); MEAN CORPUSCULAR HGB CONC 31.7 g/dl (32.0-36.5); MEAN CORPUSCULAR VOLUME 96.4 fl (80.0-96.0); RED BLOOD COUNT 4.12 10^6/uL (4.30-6.10); RED CELL DISTRIBUTION WIDTH 15.8 % (11.5-14.5); WHITE BLOOD COUNT 6.4 10^3/uL (4.0-10.0)
[2017-11-16 20:07] LABS: PLATELET COUNT, AUTOMATED 91 10^3/uL (150-450)
[2017-11-16 20:10] LABS: IMMATURE PLATELET FRACTION % 7.9 % (0.0-10.9)
[2017-11-16 20:17] LABS: INR 1.56; PROTHROMBIN TIME 18.9 SECONDS (12.1-14.4)
[2017-11-16 20:30] LABS: ANION GAP 7 MEQ/L (8-16); BLOOD UREA NITROGEN 13 MG/DL (7-18); CALCIUM LEVEL 8.6 MG/DL (8.8-10.2); CARBON DIOXIDE LEVEL 32 MEQ/L (21-32); CHLORIDE LEVEL 102 MEQ/L (98-107); CREATININE FOR GFR 2.42 MG/DL (0.70-1.30); GLOMERULAR FILTRATION RATE 28.4 (>49); GLUCOSE, FASTING 161 MG/DL (70-100); SODIUM LEVEL 141 MEQ/L (136-145)
== END 2017-11-16 21:09 | disposition home or self-care (01) ==
LOC: M ED 19:10
DX: T82.838A Hemorrhage due to vascular prosthetic devices, implants and grafts, initial encounter (principal); Y73.2 Prosthetic and other implants, materials and accessory gastroenterology and urology devices associated with adverse incidents; N18.6 End stage renal disease; Z99.2 Dependence on renal dialysis; E11.9 Type 2 diabetes mellitus without complications; I12.0 Hypertensive chronic kidney disease with stage 5 chronic kidney disease or end stage renal disease; Z87.891 Personal history of nicotine dependence; Z88.8 Allergy status to other drugs, medicaments and biological substances; Z79.899 Other long term (current) drug therapy; Z79.01 Long term (current) use of anticoagulants; Z79.02 Long term (current) use of antithrombotics/antiplatelets; Z79.82 Long term (current) use of aspirin
CPT/HCPCS: 80048

== ENCOUNTER → 2017-12-03 | Outpatient (REF) | payer MEDICARE, MEDICAID ==
[2017-12-03 07:45] LABS: HEMOGLOBIN 12.7 g/dl (13.5-17.5); MEAN CORPUSCULAR HEMOGLOBIN 30.5 pg (27.0-33.0); MEAN CORPUSCULAR HGB CONC 31.8 g/dl (32.0-36.5); MEAN CORPUSCULAR VOLUME 95.9 fl (80.0-96.0); RED BLOOD COUNT 4.17 10^6/uL (4.30-6.10); RED CELL DISTRIBUTION WIDTH 16.1 % (11.5-14.5); WHITE BLOOD COUNT 6.6 10^3/uL (4.0-10.0)
[2017-12-03 08:01] LABS: C REACTIVE PROTEIN QUANTITATIV 2.49 MG/DL (0.00-0.30)
[2017-12-03 08:41] LABS: PLATELET COUNT, AUTOMATED 97 10^3/uL (150-450); POS COUNT POS FLAG
[2017-12-03 08:42] LABS: IMMATURE PLATELET FRACTION % 7.9 % (0.0-10.9); PLATELET F 91
[2017-12-03 09:15] LABS: ERYTHROCYTE SEDIMENTATION RATE 2 mm/hr (0-20)
== END ==
LOC: SKLAB4 06:18
DX: H57.12 Ocular pain, left eye (principal); M25.60 Stiffness of unspecified joint, not elsewhere classified
CPT/HCPCS: 72052

== ENCOUNTER → 2017-12-06 | Outpatient (CLI) | payer MEDICARE, MEDICAID | LOC: M RAD 06:07 | DX: N50.89 Other specified disorders of the male genital organs (principal) | CPT/HCPCS: 76870 ==

== ENCOUNTER 2018-01-04 17:25 | Emergency (ER) | payer MEDICARE, MEDICAID ==
[2018-01-04 20:15] LABS: HEMATOCRIT 37.7 % (42.0-52.0); HEMOGLOBIN 11.7 g/dl (13.5-17.5); MEAN CORPUSCULAR HEMOGLOBIN 30.9 pg (27.0-33.0); MEAN CORPUSCULAR VOLUME 99.5 fl (80.0-96.0); PLATELET COUNT, AUTOMATED 106 10^3/uL (150-450); RED BLOOD COUNT 3.79 10^6/uL (4.30-6.10); RED CELL DISTRIBUTION WIDTH 15.3 % (11.5-14.5); WHITE BLOOD COUNT 6.7 10^3/uL (4.0-10.0)
[2018-01-04 20:24] LABS: INR 1.58; PROTHROMBIN TIME 19.1 SECONDS (12.1-14.4)
[2018-01-04 20:37] LABS: ANION GAP 5 MEQ/L (8-16); BLOOD UREA NITROGEN 11 MG/DL (7-18); CALCIUM LEVEL 8.6 MG/DL (8.8-10.2); CARBON DIOXIDE LEVEL 34 MEQ/L (21-32); CHLORIDE LEVEL 98 MEQ/L (98-107); CREATININE FOR GFR 2.02 MG/DL (0.70-1.30); GLUCOSE, FASTING 155 MG/DL (70-100); POTASSIUM SERUM 3.1 MEQ/L (3.5-5.1); SODIUM LEVEL 137 MEQ/L (136-145)
[2018-01-04] MEDS: POTASSIUM CHLORIDE 10 MEQ SR TABLET PO (21:14)
== END 2018-01-04 21:29 | disposition home or self-care (01) ==
LOC: M ED 17:25
DX: T82.838A Hemorrhage due to vascular prosthetic devices, implants and grafts, initial encounter (principal); I25.10 Atherosclerotic heart disease of native coronary artery without angina pectoris; E11.9 Type 2 diabetes mellitus without complications; I11.0 Hypertensive heart disease with heart failure; I50.9 Heart failure, unspecified; Z99.2 Dependence on renal dialysis; Z95.1 Presence of aortocoronary bypass graft; Z79.01 Long term (current) use of anticoagulants
CPT/HCPCS: 80048

== ENCOUNTER 2018-01-08 08:48 | Emergency (ER) | payer MEDICARE, MEDICAID ==
[2018-01-08] MEDS: SILVER NITRATE APPLICATOR TOP (09:15)
[2018-01-08] MEDS: PHENYLEPHRINE 0.25% NASAL SPR 15 ML (09:34)
[2018-01-08 09:46] LABS: HEMATOCRIT 31.6 % (42.0-52.0); HEMOGLOBIN 9.9 g/dl (13.5-17.5); MEAN CORPUSCULAR HEMOGLOBIN 31.4 pg (27.0-33.0); MEAN CORPUSCULAR HGB CONC 31.3 g/dl (32.0-36.5); MEAN CORPUSCULAR VOLUME 100.3 fl (80.0-96.0); PLATELET COUNT, AUTOMATED 105 10^3/uL (150-450); RED BLOOD COUNT 3.15 10^6/uL (4.30-6.10); RED CELL DISTRIBUTION WIDTH 15.3 % (11.5-14.5); WHITE BLOOD COUNT 8.1 10^3/uL (4.0-10.0)
[2018-01-08 09:56] LABS: INR 1.82; PROTHROMBIN TIME 21.4 SECONDS (12.1-14.4)
== END 2018-01-08 10:52 | disposition home or self-care (01) ==
LOC: M ED 08:48
DX: R04.0 Epistaxis (principal); Z79.82 Long term (current) use of aspirin; Z79.899 Other long term (current) drug therapy; Z88.8 Allergy status to other drugs, medicaments and biological substances; Z91.89 Other specified personal risk factors, not elsewhere classified
CPT/HCPCS: 85610

== ENCOUNTER → 2018-01-26 | Outpatient (REF) | payer MEDICARE, MEDICAID | LOC: SKLAB4 08:00 | DX: M25.511 Pain in right shoulder (principal) | CPT/HCPCS: 73030 ==